=== PATIENT | female | born 1960 | race Caucasian/White ===

== ENCOUNTER 2017-11-15 15:38 | Emergency (ER) | payer BC ==
[2017-11-15 16:28] LABS: #Lymphocytes 1.9 thou/uL (1.20-3.40); #Monocytes 0.5 thou/uL (0.11-0.59); #Neutrophils 7.1 thou/uL (1.40-6.50); %Basophils 0.4 % (0.0-1.0); %Eosinophils 0.5 % (0.0-10.0); %Lymphocytes 19.6 % (21.0-51.0); %Monocytes 4.9 % (0.0-10.0); %Neutrophils 74.6 % (42.0-75.0); Hemoglobin 15.2 g/dL (12.0-16.0); Mean Corpuscular HGB CONC 33.7 g/dL (32.0-36.0); Mean Corpuscular Hemoglobin 30.8 pg (27.0-31.0); Mean Corpuscular Volume 91.4 fl (81.0-99.0); Mean Platelet Volume 8.1 fL (7.4-10.4); Platelet Count 230 thou/uL (130-400); RBC Distribution Width 13.8 % (11.5-14.5); Red Blood Cell (RBC) Count 4.93 mill/uL (4.20-5.40); White Blood Cell (WBC) Count 9.6 thou/uL (4.8-10.8)
[2017-11-15] MEDS ORDERED: Ketorolac Tromethamine 30 MG/ML VIAL ONE (16:35)
[2017-11-15 16:48] LABS: ALT (SGPT) 24 U/L (8-55); AST (SGOT) 16 U/L (5-34); Albumin 3.9 g/dL (3.5-5.0); Alkaline Phosphatase 106 U/L (40-150); Anion Gap 18 mmol/L (10-20); BUN (Urea Nitrogen) 13 mg/dL (9.8-20.1); Bilirubin, Total 0.6 mg/dL (0.2-1.2); Calc. Creatinine Clearance 0 mL/min (70-130); Carbon Dioxide 23 mmol/L (22-29); Chloride 100 mmol/L (98-107); Estimated GFR-MDRD 66; Globulin 3.6 g/dL (2.4-3.5); Potassium 4.4 mmol/L (3.5-5.1); Protein, Total 7.5 g/dL (6.0-8.3); Sodium 137 mmol/L (136-145)
[2017-11-15 16:51] LABS: Glucose 626 mg/dL (70-105)
[2017-11-15 17:28] LABS: Bilirubin Negative (Negative); Blood, Urine Negative (Negative); Clarity CLEAR (Clear); Glucose, Urine (Dipstick) >=1000 mg/dL (Negative); Leukocyte Negative (Negative); Nitrite Negative (Negative); Protein, Urine (Dipstick) Negative (Neg-Trace); Specific Gravity, Urine 1.043 (1.002-1.036); Urobilinogen 0.2 mg/dL (0.2-1.0); pH, Urine 5.5 (5.0-9.0)
[2017-11-15 17:49] LABS: Base Excess-Venous 1.9 mmol/L (-30.0-30.0); Bicarbonate (HCO3v) 25.6 mmol/L (1.0-85.0); CO2 Tension (PvCO2) 36.9 mmHg (41.0-51.0); Calcium, Ionized 1.07 mmol/L (1.12-1.32); Hemoglobin - Calc 16.3 g/dL (12.0-18.0); O2 Tension (PvO2) 82.5 mmHg (35.0-45.0); Potassium 4.4 mmol/L (3.4-4.7); T. Carbon Dioxide 26.8 mmol/L (1.0-85.0); vO2 Saturation-calc 96.6 % (0.0-100.0)
[2017-11-15] MEDS ORDERED: Insulin Regular 300 UNITS/3 ML VIAL ONE (17:51)
[2017-11-15] MEDS ORDERED: Fentanyl 100 MCG/2 ML VIAL ONE (17:52)
[2017-11-15] MEDS ORDERED: Piperacillin/Tazobactam 3.375 GM in Sodium Chloride 0.9% 100 ML IVPB ONE (18:00)
--- NOTE | 2017-11-15 20:18 | RAD ---
RIGHT ANKLE TWO VIEWS 11/15/17 HISTORY: Right ankle pain. Right toe infection. FINDINGS/IMPRESSION: No acute fracture or dislocation or bony destructions are identified. A plantar calcaneal spur is pre sent. Bony density inferior to the lateral malleolus likely represents old injury. POS: [facility]
--- NOTE | 2017-11-15 20:20 | RAD ---
RIGHT FOOT TWO VIEWS 11/15/17 HISTORY: Right foot pain, toe infection. FINDINGS/IMPRESSION: No acute fracture or dislocation or bony destruction seen. A plantar calcaneal spur is present. If there is high clinical suspicion for osteomyelitis, further evaluation with MRI should be performmaile d. POS: [facility]
== END 2017-11-15 22:22 | disposition home or self-care (01) ==
LOC: ERS 15:38
DX: E11.621 Type 2 diabetes mellitus with foot ulcer (principal); L03.115 Cellulitis of right lower limb; E66.9 Obesity, unspecified; F32.9 Major depressive disorder, single episode, unspecified; Z79.4 Long term (current) use of insulin
CPT/HCPCS: 36415; 36416; 80053; 81003; 82010; 82330; 82803; 83735; 83930; 85025; 86140; 87040; 87070; 87077; 87186; 87205; 96361; 96365; 96367; 96375; J1815; J1885; J2543; J3010; J3370; J7050

== ENCOUNTER 2017-11-30 09:29 | Outpatient (CLI) | payer BC | END 2017-11-30 09:30 | disposition home or self-care (01) | LOC: BICRAD 09:29 | PROVIDERS: ATTEND Family Medicine | DX: M79.661 Pain in right lower leg (principal); M85.861 Other specified disorders of bone density and structure, right lower leg ==

== ENCOUNTER 2017-12-01 10:13 | Outpatient (CLI) | payer BC ==
--- NOTE | 2017-12-01 19:15 | HP ---
DATE OF SERVICE: 12/01/2017. HISTORY OF PRESENT ILLNESS: Ms. Marielle Norman is a very pleasant 57-year-old who presents to the [facility] for evaluation of an ulceration of the dorsum of the right third toe. The patient states that on Wednesday of the first weekend of 11/2017, she developed erythema of her right third toe. She s tates that 2 days later, she developed 2 blisters of her right third toe. She states that she popped the blisters on her own resulting in the drainage of serosanguineous fluid. The patient states that she popped the blisters on the same day that the blisters were first noted. The patient states that on the following day, she saw Dr. Nergo and at this time was administered IM antibiotics and alisia elizabeth on a course of p.o. antibiotics. She states that when her toe did not improve in its appearance, she was seen in the Emergency Department and at this time, administered two different antibiotics in travenously. The patient states she was also prescribed a course of p.o. antibiotics. After a fall, the patient states she was seen yesterday by Dr. Negro and at this time administered antibiotics IM, also at this time, 2 courses of p.o. antibiotics were refilled. Also at this time, the patient was referred to the [facility] for further evaluation and treatment. PAST MEDICAL HISTORY: 1. Diabetes mellitus. 2. Hypertension. PAST SURGICAL HISTORY: 1. Cholecystectomy. 2. Ventral hernia repair. 3. Right needle localization breast biopsy. MEDICATIONS: 1. Aspirin. 2. Effexor. 3. Metformin. 4. Lipitor. 5. Vitamin D3. 6. Humulin. 7. Xanax. 8. Tramadol. 9. Levaquin. 10. Doxycycline. ALLERGIES: LOSARTAN, BACTRIM. SOCIAL HISTORY: Negative for tobacco or ETOH use. FAMILY HISTORY: Significant for diabetes mellitus. The patient states that her father and maternal grandmother were both diagnosed with diabetes mellitus. Family history is also significant for coron bobbi artery disease. The patient states that her father was diagnosed with coronary artery disease. PHYSICAL EXAMINATION: VITAL SIGNS: Temperature 98.0, pulse 115, respirations 19, blood pressure 133/71. Accu-Chek 359. GENERAL: A 57-year-old female lying on table in examination room, in no acute distress. HEENT: Normocephalic, atraumatic. NECK: No nuchal rigidity. CHEST: Clear to auscultation. CARDIAC: Regular rate and rhythm. ABDOMEN: Soft. EXTREMITIES: An ulceration of the dorsum of the right third toe is present which measures approximat akua 2.8 x 1.8 cm. Granulation tissue is visible within the wound margins. Necrotic and nonviable ti ssue present within the wound margins was debrided with an excisional partial-thickness debridement o f necrotic and desiccated tissue at the periphery of the wound were excised with the use of scissors. No purulent drainage is associated with the wound. No purulent drainage is associated with the wou nd. No cellulitis of the right third toe is appreciated. No maceration of the skin of the periwound is noted. A pedal pulse is palpable on the right. No significant edema of the right foot is presen t on exam today. NEUROLOGIC: Grossly nonfocal. ASSESSMENT AND PLAN: 1. Ulceration of dorsum of the right third toe. Dressing changes of Silverlon will be initiated tomavis todd. These dressing changes are to be performed on a daily basis after cleansing and irrigation. The patient is to continue p.o. antibiotics as previously prescribed, specifically Levaquin and doxycycl ine. The wound appears to be healing without complications or any signs of infection and Ms. Roshan gallo will be discharged from clinic today with followup on a p.r.n. basis. 2. Diabetes mellitus. The patient's Accu-Chek in clinic today is 359. The patient has been told th at for optimal wound healing, her blood glucoses should remain below 150. 3. Hypertension.
[2017-12-03] MEDS ORDERED: Lidocaine 2% Jelly 5 ML TUBE ONE (15:54)
[2017-12-03] MEDS ORDERED: Sodium Chloride 0.9% 15 ML NEB ONE (15:54)
== END 2017-12-01 10:14 | disposition home or self-care (01) ==
LOC: WCC 10:13
PROVIDERS: ATTEND Family Medicine
DX: E11.621 Type 2 diabetes mellitus with foot ulcer (principal); L97.519 Non-pressure chronic ulcer of other part of right foot with unspecified severity; I10 Essential (primary) hypertension
CPT/HCPCS: 11042; 99203; G0463

== ENCOUNTER 2017-12-02 08:37 | Outpatient (CLI) | payer BC | END 2017-12-02 08:38 | disposition home or self-care (01) | LOC: BICRAD 08:37 | PROVIDERS: ATTEND Family Medicine | DX: M25.571 Pain in right ankle and joints of right foot (principal); M19.071 Primary osteoarthritis, right ankle and foot ==

== ENCOUNTER 2018-01-15 16:03 | Inpatient (IN) | payer BC ==
[2018-01-15] MEDS ORDERED: Morphine 4 MG/ML VIAL ONE (17:11)
--- NOTE | 2018-01-15 17:28 | RAD ---
PORTABLE CHEST ONE VIEW 01/15/18 at 5:05 p.m. HISTORY: Fever. Chills. FINDINGS: Comparison is made with exam of 06/02/16. There is elevation of the right hemidiaphragm. The heart size is normal. No confluent areas of consol idation, pneumothorax, efrain pulmonary edema, or pleural effusions are seen. IMPRESSION: No radiographic evidence of acute cardiopulmonary process. POS: [facility]
[2018-01-15 18:17] LABS: Hemoglobin 14.1 g/dL (12.0-16.0); Mean Corpuscular HGB CONC 33.6 g/dL (32.0-36.0); Mean Corpuscular Hemoglobin 30.4 pg (27.0-31.0); Mean Corpuscular Volume 90.3 fl (81.0-99.0); Mean Platelet Volume 7.4 fL (7.4-10.4); Platelet Count 175 thou/uL (130-400); RBC Distribution Width 13.8 % (11.5-14.5); Red Blood Cell (RBC) Count 4.66 mill/uL (4.20-5.40); White Blood Cell (WBC) Count 11.5 thou/uL (4.8-10.8)
[2018-01-15 18:31] LABS: ALT (SGPT) 40 U/L (8-55); AST (SGOT) 56 U/L (5-34); Albumin 3.4 g/dL (3.5-5.0); Alkaline Phosphatase 91 U/L (40-150); Anion Gap 16 mmol/L (10-20); BUN (Urea Nitrogen) 17 mg/dL (9.8-20.1); Band 38 % (5-11); Bilirubin, Total 0.9 mg/dL (0.2-1.2); Calc. Creatinine Clearance 0 mL/min (70-130); Calcium 9.5 mg/dL (7.8-10.44); Carbon Dioxide 23 mmol/L (22-29); Chloride 95 mmol/L (98-107); Estimated GFR-MDRD 64; Globulin 3.6 g/dL (2.4-3.5); Glucose 353 mg/dL (70-105); Lymphocytes 5 % (21-51); MDiff Complete? YES; Monocytes 3 % (0-10); Neutrophil 53 % (42-75); PLT Morphology Comment Appears Adequate; RBC Morphology Normal; Reactive Lymphocytes 1 % (0-10); Sodium 130 mmol/L (136-145)
[2018-01-15] MEDS ORDERED: VANCOMYCIN IVPB PRN (19:29)
[2018-01-15] MEDS ORDERED: Dextrose 50% Abboject 50 ML SYRINGE SLOW IVP PRN (19:30)
[2018-01-15] MEDS ORDERED: Dextrose 5% in Water 1,000 ML IV PRN (19:30)
[2018-01-15] MEDS ORDERED: INSULIN GLARGINE HUM REC ANLOG 50 UNIT SC SCH (21:00)
[2018-01-15] MEDS ORDERED: Citalopram 20 MG TAB PO SCH (21:00)
[2018-01-15 21:12] VITALS: BMI 42.3
[2018-01-15] MEDS ORDERED: Insulin Detemir 100 UNITS/ML 50 UNITS in Pre-Filled Syringe 1 EACH SC SCH (21:15)
[2018-01-15] MEDS: HumaLOG 300 UNITS/3 ML VIAL SC PRN (22:17)
[2018-01-15] MEDS: Sodium Chloride 0.9% 1,000 ML IV SCH (22:18)
--- NOTE | 2018-01-15 22:18 | HP ---
PRIMARY CARE PHYSICIAN: Dr. Carlos Negro. CHIEF COMPLAINT: Worsening left leg pain. HISTORY OF PRESENT ILLNESS: Patient is a very pleasant 57-year-old female with past medical history of diabetes and hypertension who presented to the hospital for worsening left leg pain. The patient stated that she had a fall on Wednesday. She said she has lost her balance and fell on the floor, did n ot hit her head. The patient stated that she lives alone and had no help and stayed on the floor for about 24 hours until she got herself up. The patient stated that she does not remember hitting her left leg. The patient noticed that this morning when she woke up, she started having significant red ness and edema to her left leg. The patient denies any fevers or chills. The patient stated that camilo gr did have cellulitis of her right leg a few months back. PAST MEDICAL HISTORY: Diabetes type 2, hypertension. PAST SURGICAL HISTORY: Cholecystectomy, ventral hernia repair and right needle localized breast biop sy. MEDICATIONS: Per charting, aspirin 81 mg, vitamin D3 2000 units daily, citalopram 40 at bedtime, gli pizide 10 mg daily, insulin 50 units b.i.d., metformin 1000 mg b.i.d., and pravastatin 80 mg at bedti me. ALLERGIES: She is allergic to LOSARTAN and BACTRIM. SOCIAL HISTORY: She denies any tobacco, alcohol or drug use. FAMILY HISTORY: Significant for diabetes, both her mother and father had diabetes. Maternal grandmo ther also had diabetes. Father also had coronary artery disease. REVIEW OF SYSTEMS: The following complete review of systems was negative, unless otherwise mentioned in the HPI or below: Constitutional: Weight loss or gain, ability to conduct usual activities. Skin: Rash, itching. Eyes: Double vision, pain. ENT/Mouth: Nose bleeding, neck stiffness, pain, tenderness. Cardiovascular: Palpitations, dyspnea on exertion, orthopnea. Respiratory: Shortness of breath, wheezing, cough, hemoptysis, fever or night sweats. Gastrointestinal: Poor appetite, abdominal pain, heartburn, nausea, vomiting, constipation, or diarr hea. Genitourinary: Urgency, frequency, dysuria, nocturia. Musculoskeletal: Pain, swelling. Neurologic/Psychiatric: Anxiety, depression. Allergy/Immunologic: Skin rash, bleeding tendency. PHYSICAL EXAMINATION: VITAL SIGNS: Temperature of 98.4, blood pressure 114/69, pulse of 115 and she is 91% on room air. GENERAL: She is awake, alert, oriented x3, appears very dehydrated. HEENT: Mouth appears very dehydrated. CARDIOVASCULAR: S1, S2 present. No murmurs, rubs or gallops. Only tachycardia. RESPIRATORY: Lungs are clear to auscultation. No rhonchi, wheezes noted. ABDOMEN: Obese. Bowel sounds are present x2. No pain upon palpation. EXTREMITIES: The patient has significant edema to her left leg, +1. Patient also has significant er ythema all the way on her left leg starting from her foot all the way back going around her groin are a. She does have some little small blood blisters to the back portion of her left leg. Pedal pulses are present in foot. The patient's left leg is warm to touch. LABORATORY DATA: The patient's white count is 11.5; however, has bands of 38. Hemoglobin 14.1, patricia tocrit 42.1. Sodium of 130, potassium of 4.0, anion gap of 16, BUN of 17, creatinine of 0.9, sugar i s 353. ASSESSMENT AND PLAN: The patient is a very pleasant 57-year-old female who presented to the hospital with worsening left leg pain. 1. Left leg cellulitis, patient is a diabetic. We will start the patient on vancomycin and Zosyn fo r now. Blood cultures are not drawn and sent. 2. Mild leukocytosis with bandemia, most likely secondary to cellulitis. We will continue IV antibi otics. 3. Diabetes type 2. We will put the patient on sliding scale insulin and her home dose of insulin o f Lantus long-acting. 4. Fall. The patient stated that she lives alone and she fell. We will get physical therapy to lidia luate her. We will also check a CK to make sure the patient does not have any rhabdomyolysis. 5. Tachycardic. The patient appears very dehydrated. She states that she has not eaten for the pas t 2 days. We will start the patient on some gentle hydration.
[2018-01-15] MEDS: Docusate 100 MG CAP PO SCH (22:19)
[2018-01-15] MEDS: Pravastatin Sodium 40 MG TAB PO SCH (22:19)
[2018-01-15] MEDS: Heparin 5,000 UNITS/ML VIAL SC SCH (22:20)
[2018-01-15] MEDS: Acetaminophen 325 MG TAB PO PRN (23:57)
[2018-01-15] MEDS: Piperacillin/Tazobactam 3.375 GM in Sodium Chloride 0.9% 100 ML IVPB SCH (23:58)
[2018-01-16] MEDS: Piperacillin/Tazobactam 3.375 GM in Sodium Chloride 0.9% 100 ML IVPB SCH ×3 (05:11→17:50)
[2018-01-16] MEDS: Vancomycin HCl 1.5 GM in Sodium Chloride 0.9% 250 ML 300 ML IVPB SCH ×2 (05:12→19:11)
[2018-01-16 05:13] LABS: ALT (SGPT) 31 U/L (8-55); AST (SGOT) 39 U/L (5-34); Albumin 2.8 g/dL (3.5-5.0); Alkaline Phosphatase 81 U/L (40-150); Anion Gap 11 mmol/L (10-20); BUN (Urea Nitrogen) 17 mg/dL (9.8-20.1); Bilirubin, Total 0.8 mg/dL (0.2-1.2); Calc. Creatinine Clearance 172 mL/min (70-130); Carbon Dioxide 26 mmol/L (22-29); Chloride 98 mmol/L (98-107); Estimated GFR-MDRD 90; Globulin 3.1 g/dL (2.4-3.5); Glucose 191 mg/dL (70-105); Potassium 3.4 mmol/L (3.5-5.1); Protein, Total 5.9 g/dL (6.0-8.3); Sodium 132 mmol/L (136-145)
[2018-01-16 05:37] LABS: Band 12 % (5-11); Hemoglobin 12.8 g/dL (12.0-16.0); Lymphocytes 15 % (21-51); MDiff Complete? YES; Mean Corpuscular HGB CONC 33.5 g/dL (32.0-36.0); Mean Corpuscular Hemoglobin 30.1 pg (27.0-31.0); Mean Corpuscular Volume 89.9 fl (81.0-99.0); Mean Platelet Volume 7.8 fL (7.4-10.4); Monocytes 12 % (0-10); Neutrophil 59 % (42-75); PLT Morphology Comment Appears Adequate; Platelet Count 139 thou/uL (130-400); RBC Distribution Width 13.7 % (11.5-14.5); RBC Morphology Normal; Reactive Lymphocytes 2 % (0-10); Red Blood Cell (RBC) Count 4.26 mill/uL (4.20-5.40); White Blood Cell (WBC) Count 9.6 thou/uL (4.8-10.8)
[2018-01-16] MEDS: Docusate 100 MG CAP PO SCH ×2 (08:18→21:42)
[2018-01-16] MEDS: HYDROcodone/Acetaminophen 5/325 mg Tablet PO PRN ×2 (08:18→17:35)
[2018-01-16] MEDS: Heparin 5,000 UNITS/ML VIAL SC SCH ×3 (08:19→21:43)
[2018-01-16] MEDS: Sodium Chloride 0.9% 1,000 ML IV SCH ×2 (08:21→21:44)
[2018-01-16] MEDS: Insulin Detemir 100 UNITS/ML 50 UNITS in Pre-Filled Syringe 1 EACH SC SCH ×2 (08:21→21:43)
--- NOTE | 2018-01-16 09:27 | RAD ---
2 VIEWS EACH HIP: Date: 01/16/18 PROVIDED CLINICAL HISTORY: Bilateral hip pain. FINDINGS: Evaluation is limited by patient body habitus. There is no evidence for displaced fracture. Hip joint spaces appear preserved. Vascular calcifications are seen. Alignment appears anatomic. IMPRESSION: Limited study without evidence for an acute osseous abnormality. POS: [facility]
--- NOTE | 2018-01-16 11:41 | PDOC.PN ---
- Subjective Encounter Start Date: 01/16/18 Encounter Start Time: 10:10 states she feels the same spiked fever around midnight - Objective Vital Signs & Weight: Vital Signs (12 hours) Temp Pulse Resp BP Pulse Ox 01/16/18 07:21 98.3 F 107 H 18 101/66 92 L 01/16/18 05:45 98.2 F 103 H 20 101/66 95 01/16/18 00:30 101.4 F H 110 H 20 109/61 90 L I&O: 01/15/18 01/16/18 01/17/18 05:59 06:59 06:59 Intake Total Balance Result Diagrams: 01/16/18 04:09 01/16/18 04:09 Additional Labs: Accuchecks 01/16/18 01/15/18 05:46 20:55 POC Glucose 261 H 515 H Phys Exam - Physical Examination Constitutional: NAD HEENT: PERRLA, moist MMs Neck: no nodes, no JVD, supple Respiratory: no wheezing, no rales, no rhonchi, clear to auscultation bilateral Cardiovascular: no rub tachycardic Gastrointestinal: soft, non-tender, no distention Musculoskeletal: pulses present Deviation from normal: signfiicant erythema of the leg. tender to touch. warm to touch Dx/Plan (1) Left leg cellulitis Code(s): L03.116 - CELLULITIS OF LEFT LOWER LIMB Status: Acute (2) Diabetes type 2, controlled Code(s): E11.9 - TYPE 2 DIABETES MELLITUS WITHOUT COMPLICATIONS Status: Chronic (3) Sepsis affecting skin Code(s): A41.9 - SEPSIS, UNSPECIFIED ORGANISM Status: Acute - Plan cont current plan of care, plan discussed w/ family, continue antibiotics * .
[2018-01-16] MEDS: Acetaminophen 325 MG TAB PO PRN (12:36)
[2018-01-16] MEDS: HumaLOG 300 UNITS/3 ML VIAL SC PRN ×3 (13:25→21:43)
[2018-01-16] MEDS: Pravastatin Sodium 40 MG TAB PO SCH (21:41)
[2018-01-17] MEDS: Piperacillin/Tazobactam 3.375 GM in Sodium Chloride 0.9% 100 ML IVPB SCH ×5 (00:32→23:37)
[2018-01-17] MEDS: HYDROcodone/Acetaminophen 5/325 mg Tablet PO PRN ×5 (01:23→21:08)
[2018-01-17] MEDS: Vancomycin HCl 1.75 GM in Sodium Chloride 0.9% 500 ML IVPB SCH ×2 (06:16→17:54)
[2018-01-17] MEDS: Acetaminophen 325 MG TAB PO PRN ×2 (07:20→14:23)
[2018-01-17] MEDS: Heparin 5,000 UNITS/ML VIAL SC SCH ×3 (08:26→21:04)
[2018-01-17] MEDS: Docusate 100 MG CAP PO SCH ×2 (08:26→21:04)
[2018-01-17] MEDS: Insulin Detemir 100 UNITS/ML 50 UNITS in Pre-Filled Syringe 1 EACH SC SCH ×2 (08:27→21:04)
--- NOTE | 2018-01-17 11:01 | PDOC.PN ---
- Subjective Encounter Start Date: 01/17/18 Encounter Start Time: 09:00 states she is doing okay but doesnt think the cellulitis is improving. denies fever or chills - Objective Vital Signs & Weight: Vital Signs (12 hours) Temp Pulse Resp BP BP Pulse Ox 01/17/18 07:56 98.0 F 95 22 H 129/70 92 L 01/17/18 07:30 98.3 F 98 18 92 L 01/17/18 07:24 98.3 F 98 18 105/68 92 L 01/17/18 05:35 97.8 F 91 18 116/71 93 L 01/17/18 00:56 98.5 F 102 H 18 107/67 93 L Weight Admit Weight 261 lb 12.8 oz Weight 261 lb 12.8 oz I&O: 01/16/18 01/17/18 01/18/18 06:59 06:59 06:59 Intake Total Balance Result Diagrams: 01/16/18 04:09 01/16/18 04:09 Additional Labs: Accuchecks 01/17/18 01/16/18 01/16/18 05:36 21:09 16:33 POC Glucose 122 H 225 H 219 H 01/16/18 11:41 POC Glucose 218 H Phys Exam - Physical Examination Constitutional: NAD HEENT: PERRLA, moist MMs Neck: no nodes, no JVD, supple Respiratory: no wheezing, clear to auscultation bilateral Cardiovascular: RRR, no significant murmur Gastrointestinal: soft, non-tender, no distention Musculoskeletal: pulses present, edema present Neurological: non-focal, normal sensation, moves all 4 limbs Psychiatric: normal affect, A&O x 3 Deviation from normal: significant swelling.erythema. superficial fluid collection on left leg Dx/Plan (1) Left leg cellulitis Code(s): L03.116 - CELLULITIS OF LEFT LOWER LIMB Status: Acute (2) Diabetes type 2, controlled Code(s): E11.9 - TYPE 2 DIABETES MELLITUS WITHOUT COMPLICATIONS Status: Chronic (3) Sepsis affecting skin Code(s): A41.9 - SEPSIS, UNSPECIFIED ORGANISM Status: Acute - Plan cont current plan of care, plan discussed w/ family, continue antibiotics * . continue with current Abx will consult General surgery-rule out compartment syndrome/necrotizing fascitis pain mgmt control
[2018-01-17] MEDS: HumaLOG 300 UNITS/3 ML VIAL SC PRN ×3 (11:48→21:05)
--- NOTE | 2018-01-17 15:40 | CON ---
DATE OF CONSULTATION: 01/17/2018 REQUESTING PHYSICIAN: Rich Jacob M.D. HISTORY OF PRESENT ILLNESS: This is a 57-year-old obese woman with history of diabetes mellitus and essential hypertension. The patient was admitted 2 days ago with complaint of worsening left lower leg pain. This proceeded a fall just 24 hours prior to this admission. The patient reported worsening swelling and painful left leg associated now with new onset redness in the posterior aspect of leg. The patient denies any fevers or chills. She was admitted and has been on treatment for left lower extremity cellulitis. At the time of my evaluation, patient is awake and alert. She is sitting up in a chair, having lunch. She denies any dyspnea, chest pain or syncope. She reports pain with dorsiflexion of her left leg. At baseline; however, she has no significant difficulties with minimum ambulation. PAST MEDICAL HISTORY: Significant for type 2 diabetes mellitus and essential hypertension. SURGICAL HISTORY: Pertinent for ventral incisional herniorrhaphy, cholecystectomy, and right needle localized by breast biopsy for benign lesion. SOCIAL HISTORY: She denies any cigarette smoking, ethanol or illicit drug abuse. I have reviewed prehospital medications. ALLERGIES: LOSARTAN and BACTRIM. CURRENT MEDICATIONS: Includes acetaminophen p.r.n. pain, aspirin 81 mg p.o. daily, heparin 5000 units subcutaneously t.i.d., Zosyn 3.375 grams IV q.6 hours , vancomycin 1.75 grams dosed by pharmacy. She also takes hydrocodone 5 mg 1 p.o. q.4 hours p.r.n. pain. REVIEW OF SYSTEMS: A 10 point review of systems essentially unremarkable except for as stated in past medical history and chief complaint. PHYSICAL EXAMINATION: GENERAL: This reveals a 57-year-old obese woman who is otherwise coherent and interactive and appears stated age. The patient is alert and oriented x3. She appears to be in no acute distress at the time of my evaluation. VITAL SIGNS: Includes blood pressure 109/73, pulse is 91 and regular, respiratory rate is 22, maximum temperature in the last 24 hours is 98.3 degrees Fahrenheit, oxygen saturation is 91% on room air. HEENT: Examination reveals normocephalic and atraumatic. Pupils are equal, round, and reactive to light and accommodation. Extraocular muscles are intact bilaterally. She has no scleral icterus present. NECK: She has no jugular venous distention noted. HEART: Reveals regular rate and rhythm. No murmurs or gallops auscultated. LUNGS: Clear to auscultation bilaterally. Her breathing is regular and unlabored. ABDOMEN: Soft, nontender, nondistended. Liver and spleen are nonpalpable below costal margins. EXTREMITIES: Reveals 2+ radial and right pedal pulses. She has marked swelling of the left leg from the ankle to just above the knee. There is a wide erythema of the posterior left leg with 4 x 5 cm bullous lesion in the most distal aspect of the posterior lower leg on the left. She has a positive Homans sign. There is no palpable crepitance although the edema is tense on palpation. No soft tissue flocculence or purulence is noted. NEUROLOGIC: [place] Coma Scale is 15. The patient has no focal neurologic deficits present. LABORATORY DATA: Laboratory findings on my review includes CBC on 01/15/2018 with 11,500 white blood cells, hemoglobin 14.1, hematocrit 42.1, platelet count 175,000 with 53% segmented neutrophils, 38 bands, 5 lymphocytes, and 3 monocytes. This improved on 01/16/2018 with 9,600 white blood cells, hemoglobin 12.8, hematocrit 38.3, platelet count is stable at 139,000. This is with differential count, 59% segmented neutrophils, 12 bands, 15 lymphocytes, and 12 monocytes. Chemistry from yesterday, sodium 132, potassium 3.4, chloride 98, bicarbonate 26, BUN 17, creatinine 0.67 and glucose 191. AST and ALT are noted at 39 and 31 respectively. IMPRESSION: Left leg cellulitis with high suspicion for a left leg deep venous thrombosis with thrombophlebitis. There is no clinical evidence of compartment syndrome or necrotizing soft tissue infection. RECOMMENDATIONS: Obtain duplex sonogram of the left lower extremity to rule out DVT. We will consider a lower leg CT scan to rule out necrotizing soft tissue infection if no DVT on ultrasound. There is no acute surgical indication for this patient at this time. We will continue to follow with serial examination and make further recommendations as necessary. AYLEEN
[2018-01-17] MEDS ORDERED: ISOVUE-370 76%-LOCM 1 ML ONE (15:43)
--- NOTE | 2018-01-17 16:13 | ULT ---
LEFT LOWER EXTREMITY VENOUS DUPLEX SONOGRAM: Date: 01/17/18 HISTORY: Left leg pain and edema. Enlarged lymph node. FINDINGS: The left common femoral vein and greater saphenous junction were evaluated along with the left femora l and deep femoral, popliteal, and posterior tibial veins. There is good color and spectral Doppler f low, compression, and augmentation. Lymph node at the left groin retains a normal fatty hilum and srini sures up to 2.0 cm. IMPRESSION: No sonographic evidence of deep venous thrombosis within the left lower extremity. POS: [facility]
--- NOTE | 2018-01-17 17:49 | CT ---
CT LEFT LOWER EXTREMITY: Technique: Multiple axial tomograms were obtained of the left lower extremity, just below the knee th rough the foot. History: Assess for necrotizing soft tissue infection. FINDINGS: Subcutaneous density is seen within the midcalf through the ankle consistent with subcutaneous inflam mation or cellulitis. The muscle bundles appear unremarkable with no intramuscular fluid or abscess c ollection. There is no subcutaneous fluid or abscess collection. There is a fluid dense collection seen external to the skin posteromedial aspect of the mid to distal calf which may represent a fluid or abscess collection involving the epidermis only. The dermis appe ars intact beneath this apparent collection. There is no osseous erosion or destruction of an osteomyelitis. IMPRESSION: 1. A fluid dense collection, dermal or epidermal in origin posteromedial aspect of the mid to distal calf region as described above. 2. Subcutaneous tissue show increased density from the midcalf through the ankle which suggests cellu litis. 3. No intramuscular fluid or abscess collection. There is no subdural fluid or abscess collection in the subcutaneous tissues. POS: [facility]
[2018-01-17] MEDS: Ibuprofen 200 MG TAB PO PRN (17:57)
[2018-01-17] MEDS: Pravastatin Sodium 40 MG TAB PO SCH (21:03)
[2018-01-18] MEDS: HYDROcodone/Acetaminophen 5/325 mg Tablet PO PRN ×4 (05:02→18:39)
[2018-01-18] MEDS: Piperacillin/Tazobactam 3.375 GM in Sodium Chloride 0.9% 100 ML IVPB SCH ×3 (05:04→16:58)
[2018-01-18] MEDS: Vancomycin HCl 1.75 GM in Sodium Chloride 0.9% 500 ML IVPB SCH ×2 (06:11→18:34)
[2018-01-18] MEDS: Docusate 100 MG CAP PO SCH ×2 (08:15→21:01)
[2018-01-18] MEDS: Heparin 5,000 UNITS/ML VIAL SC SCH ×3 (08:15→21:01)
[2018-01-18] MEDS: Ibuprofen 200 MG TAB PO PRN ×2 (08:19→21:05)
[2018-01-18 09:18] LABS: Anion Gap 16 mmol/L (10-20); BUN (Urea Nitrogen) 10 mg/dL (9.8-20.1); Calc. Creatinine Clearance 180 mL/min (70-130); Calcium 9.4 mg/dL (7.8-10.44); Carbon Dioxide 23 mmol/L (22-29); Chloride 102 mmol/L (98-107); Estimated GFR-MDRD Greater than 90; Glucose 102 mg/dL (70-105); Potassium 3.3 mmol/L (3.5-5.1); Sodium 138 mmol/L (136-145)
[2018-01-18] MEDS: Insulin Detemir 100 UNITS/ML 50 UNITS in Pre-Filled Syringe 1 EACH SC SCH ×2 (09:29→21:01)
--- NOTE | 2018-01-18 11:38 | PRG ---
DATE OF SERVICE: 01/18/2018 ATTENDING PHYSICIAN: Dr. Kunal Davies SUBJECTIVE: Ms. Norman is a 57-year-old woman with a history of diabetes mellitus and essential hy pertension who was admitted 3 days ago with left lower leg pain concerning for cellulitis versus deep venous thrombosis versus necrotizing fasciitis. Dr. Davies was consulted for possible surgical inter vention. He had a high suspicion for DVT, and therefore a duplex venous ultrasound was ordered. Thi s was negative for DVT. The patient also had CT lower extremities bilaterally in order to rule out n ecrotizing fasciitis. This was negative as well. At the time of exam this morning, patient presents with grossly erythematous left lower extremity. Compared with yesterday, the tissues are softer. S he has 2 large bullae on her distal left lower extremity, one is tense and the other is ruptured. Pa greta voices no new complaints on exam this morning. OBJECTIVE: VITAL SIGNS: BP 109/69, pulse 82, temperature 97.9, respirations 20, and O2 sat 96% on room air. GENERAL: Patient is an obese elderly female in no acute distress. HEENT: Normocephalic and atraumatic. RESPIRATORY: Breath sounds are clear to auscultation bilaterally. She has normal effort of breathin g. CARDIOVASCULAR: She has regular rate and rhythm. No murmurs, gallops or rubs. ABDOMEN: Soft, nontender, nondistended. EXTREMITIES: Patient has marked swelling of the left distal leg from just below the knee to the ankl e. The soft tissue is soft compared with yesterday, but still grossly erythematous. She has a large tense bullae just above the medial malleolus approximately 4 x 5 cm. She has another one just dista l to that which has ruptured. This one measures about 3 x 4 cm. NEUROLOGIC: Her GCS is 15 today. She has no focal deficits. LABORATORY DATA: Chemistry: Sodium 138, potassium 3.3, chloride 102, bicarbonate 23, BUN 10, creati nine 0.64, glucose 102, calcium 9.4. IMAGING: Left lower extremity venous duplex ultrasound from 01/17/2018, no sonographic evidence of d eep vein deep venous thrombosis within the left lower extremity. Lower extremity CT dated 01/17/2018; 1. Dense fluid collection, dermal or epidermal in origin posteromedial aspect of the mid to distal c evans region as described above. 2. Subcutaneous tissue showing increased density from the midcalf to the ankle which suggests cellul itis. 3. No intramuscular fluid or abscess collection. There is no subdural fluid or abscess collection i n the subcutaneous tissues. ASSESSMENT AND PLAN: 1. Left leg cellulitis with no clinical evidence of compartment syndrome or necrotizing soft tissue infection. 2. Diabetes mellitus, present on admission. 3. Hypertension, present on admission. PLAN: 1. Wound consult for bullae on left lower extremity. 2. There is no surgical indication for this patient at this time. Surgery will sign off now. Pleas e do not hesitate to contact for further questions or consults are needed. This patient was seen and examined on rounds with Dr. Kunal Davies who agrees with the assessment an d plan.
--- NOTE | 2018-01-18 16:12 | PRG ---
DATE OF SERVICE: 01/18/2018 SUBJECTIVE: Ms. Luciano is awake and alert today. She denies any new problems. She is tolerating diet and having normal bowel and urinary function. Ultrasound of the left lower extremity yesterday was negative for DVT. Left leg CT scan also revealed diffuse subcutaneous inflammation without any l oculated fluid collections. Findings were consistent with cellulitis. OBJECTIVE: VITAL SIGNS: Today includes blood pressure 109/69, pulse 82, respiratory rate is 20, maximum tempera ture in the last 24 hours is 97.9 degrees Fahrenheit, and oxygen saturation 96% on room air. HEART: Reveals regular rate and rhythm, no murmurs or gallops auscultated. LUNGS: Clear to auscultation bilaterally. Breathing is regular and unlabored. ABDOMEN: Soft, nontender, nondistended. EXTREMITIES: Reveals 2+ radial and pedal pulses bilaterally. Left leg edema is decreasing. Left ca lf is now soft to palpation. The bullous lesion in the most inferior posterior aspect of the left le g is not ruptured and draining serous fluid. There is no flocculence or purulence associated with th e patient's presentation. The redness is not extending beyond the khan from 2 days previously. IMPRESSION: Left leg cellulitis in a diabetic patient. No clinical evidence of necrotizing soft tis zahira infection. RECOMMENDATIONS: Continue current care including antibiotics and local wound care. There remains no acute surgical indication for this patient at this time. General Surgery will sign off and we will reevaluate the patient on demand. Above findings and recommendations discussed with the patient who indicates understanding of the information given. I have answered her questions.
[2018-01-18] MEDS: HumaLOG 300 UNITS/3 ML VIAL SC PRN (17:00)
[2018-01-18 18:02] LABS: Vancomycin, Trough 16.4 ug/mL
--- NOTE | 2018-01-18 18:51 | PDOC.PN ---
- Subjective Encounter Start Date: 01/18/18 Encounter Start Time: 18:50 Subjective: nsg notes rev, jed ovn, still has significant amount of swelling and -: weeping from LLE denies any pain in LLE - Objective Vital Signs & Weight: Vital Signs (12 hours) Temp Pulse Resp BP Pulse Ox 01/18/18 08:00 97.9 F 82 20 109/69 94 L Weight Admit Weight 261 lb 12.8 oz Weight 261 lb 12.8 oz I&O: 01/17/18 01/18/18 01/19/18 06:59 06:59 06:59 Intake Total 2960 Output Total 750 Balance 2210 Result Diagrams: 01/16/18 04:09 01/18/18 08:46 Additional Labs: Accuchecks 01/18/18 01/18/18 01/18/18 16:08 11:37 04:49 POC Glucose 253 H 156 H 93 01/17/18 19:16 POC Glucose 245 H Phys Exam - Physical Examination Constitutional: NAD HEENT: PERRLA, moist MMs, sclera anicteric Respiratory: no wheezing, no rales, no rhonchi, clear to auscultation bilateral Cardiovascular: RRR, no significant murmur, no rub dressing was just placed - was not removed for examination today 2+ edema LLE Psychiatric: normal affect, A&O x 3 Dx/Plan - Plan LLE cellulitis * empiric vancomycin, pip-corry * last vanc trough 16, appropriate * recheck CBC, BMP * apprec surg c/s - no surg @ t his point in time * continue to closely monitor * apprec would care c/s DM2 * glc 70 in AM * anticipate variable glc 2/2 new abx and active infxn * continue SSI, dec determine from 50mg sq bid to 25 mg sq BID and cont to monitor * home metformin and glipizide currently on hold diet: as shari activity: as shari dvt ppx Review of Systems - Medications/Allergies Allergies/Adverse Reactions: Allergies Allergy/AdvReac Type Severity Reaction Status Date / Time losartan Allergy FACIAL AND Verified 06/19/16 09:30 THROAT SWELLING sulfamethoxazole Allergy FACIAL AND Verified 06/19/16 09:30 [From Bactrim] THROAT SWELLING trimethoprim [From Bactrim] Allergy FACIAL AND Verified 06/19/16 09:30 THROAT SWELLING Medications: Current Medications Acetaminophen (Tylenol) 650 mg PO Q4H PRN PRN Reason: Headache/Fever or Pain Last Admin: 01/17/18 14:23 Dose: 650 mg Hydrocodone Bitart/Acetaminophen ([place] 5/325) 1 tab PO Q4H PRN PRN Reason: Moderate Pain (4-6) Last Admin: 01/18/18 18:39 Dose: 1 tab Aspirin (Aspirin Chewable) 81 mg PO DAILY [facility] Last Admin: 01/18/18 08:15 Dose: 81 mg Cholecalciferol (Vitamin D3) 2,000 units PO DAILY [facility] Last Admin: 01/18/18 08:15 Dose: 2,000 units Dextrose/Water (Dextrose 50%) 25 gm SLOW IVP PRN PRN PRN Reason: Hypoglycemia Docusate Sodium (Colace) 100 mg PO BID [facility] Last Admin: 01/18/18 08:15 Dose: 100 mg Glucagon (Glucagon) 1 mg IM PRN PRN PRN Reason: Hypoglycemia Heparin Sodium (Porcine) (Heparin) 5,000 units SC TID [facility] Last Admin: 01/18/18 14:08 Dose: 5,000 units Dextrose/Water (D5w) 1,000 mls @ 0 mls/hr IV .Q0M PRN; As Directed PRN Reason: Hypoglycemia Piperacillin Sod/Tazobactam (Sod 3.375 gm/ Sodium Chloride) 100 mls @ 200 mls/ hr IVPB Q6HR [facility] Last Admin: 01/18/18 16:58 Dose: 100 mls Insulin Detemir 50 units/ (Miscellaneous Medication) 0.5 mls @ 0 mls/hr SC BID [facility] Last Admin: 01/18/18 09:29 Dose: 0.5 mls Vancomycin HCl 1.75 gm/ Sodium (Chloride) 500 mls @ 250 mls/hr IVPB 0600,1800 [facility] Last Admin: 01/18/18 18:34 Dose: 500 mls Ibuprofen (Motrin) 200 mg PO Q6H PRN PRN Reason: Headache Last Admin: 01/18/18 08:19 Dose: 200 mg Insulin Human Lispro (Humalog) 0 units SC .AGGRESSIVE SLIDING PRN PRN Reason: Aggressive Correctional Scale Last Admin: 01/18/18 17:00 Dose: 6 unit Miscellaneous Medication (Pharmacy To Dose) 1 each IVPB PRN PRN PRN Reason: Pharmacy to dose Pravastatin Sodium (Pravachol) 80 mg PO HS [facility] Last Admin: 01/17/18 21:03 Dose: 80 mg Sodium Chloride (Flush - Normal Saline) 10 ml IVF Q12HR [facility] Last Admin: 01/18/18 08:16 Dose: 10 ml Sodium Chloride (Flush - Normal Saline) 10 ml IVF PRN PRN PRN Reason: Saline Flush
[2018-01-18] MEDS: Pravastatin Sodium 40 MG TAB PO SCH (21:01)
[2018-01-19] MEDS: Piperacillin/Tazobactam 3.375 GM in Sodium Chloride 0.9% 100 ML IVPB SCH ×4 (00:04→17:32)
[2018-01-19] MEDS: HYDROcodone/Acetaminophen 5/325 mg Tablet PO PRN ×4 (02:21→22:10)
[2018-01-19] MEDS: Vancomycin HCl 1.75 GM in Sodium Chloride 0.9% 500 ML IVPB SCH ×2 (06:05→19:27)
--- NOTE | 2018-01-19 07:40 | PDOC.PN ---
- Subjective Encounter Start Date: 01/19/18 Encounter Start Time: 12:00 Subjective: nsg notes rev, jed ovn, no new c/o, working with PT - Objective Vital Signs & Weight: Vital Signs (12 hours) Temp Pulse Resp BP Pulse Ox 01/19/18 05:08 97.9 F 90 17 139/85 95 01/18/18 20:45 98.7 F 84 18 140/72 95 Weight Admit Weight 261 lb 12.8 oz Weight 261 lb 12.8 oz I&O: 01/18/18 01/19/18 01/20/18 06:59 06:59 06:59 Intake Total 2960 1730 Output Total 750 Balance 2210 1730 Result Diagrams: 01/20/18 04:57 01/20/18 04:57 Additional Labs: Accuchecks 01/19/18 01/19/18 01/18/18 06:05 05:12 20:44 POC Glucose 92 60 L 172 H 01/18/18 01/18/18 16:08 11:37 POC Glucose 253 H 156 H Phys Exam - Physical Examination Constitutional: NAD HEENT: PERRLA, moist MMs, sclera anicteric LLE with erythema, bandanging, edema relative to RLE Neurological: moves all 4 limbs Psychiatric: normal affect, A&O x 3 Dx/Plan - Plan LLE cellulitis * empiric vancomycin, pip-corry * last vanc trough 16, appropriate * recheck CBC, BMP * apprec surg c/s - no surg @ t his point in time * continue to closely monitor * apprec would care c/s DM2 * glc 70 in AM * anticipate variable glc 2/2 new abx and active infxn * continue SSI, dec determine from 50mg sq bid to 25 mg sq BID and cont to monitor * home metformin and glipizide currently on hold sepsis, resolved diet: as shari activity: as shari dvt ppx Review of Systems - Medications/Allergies Allergies/Adverse Reactions: Allergies Allergy/AdvReac Type Severity Reaction Status Date / Time losartan Allergy FACIAL AND Verified 06/19/16 09:30 THROAT SWELLING sulfamethoxazole Allergy FACIAL AND Verified 06/19/16 09:30 [From Bactrim] THROAT SWELLING trimethoprim [From Bactrim] Allergy FACIAL AND Verified 06/19/16 09:30 THROAT SWELLING Medications: Current Medications Acetaminophen (Tylenol) 650 mg PO Q4H PRN PRN Reason: Headache/Fever or Pain Last Admin: 01/17/18 14:23 Dose: 650 mg Hydrocodone Bitart/Acetaminophen ([place] 5/325) 1 tab PO Q4H PRN PRN Reason: Moderate Pain (4-6) Last Admin: 01/19/18 02:21 Dose: 1 tab Aspirin (Aspirin Chewable) 81 mg PO DAILY [facility] Last Admin: 01/18/18 08:15 Dose: 81 mg Cholecalciferol (Vitamin D3) 2,000 units PO DAILY [facility] Last Admin: 01/18/18 08:15 Dose: 2,000 units Dextrose/Water (Dextrose 50%) 25 gm SLOW IVP PRN PRN PRN Reason: Hypoglycemia Docusate Sodium (Colace) 100 mg PO BID [facility] Last Admin: 01/18/18 21:01 Dose: 100 mg Glucagon (Glucagon) 1 mg IM PRN PRN PRN Reason: Hypoglycemia Heparin Sodium (Porcine) (Heparin) 5,000 units SC TID [facility] Last Admin: 01/18/18 21:01 Dose: 5,000 units Dextrose/Water (D5w) 1,000 mls @ 0 mls/hr IV .Q0M PRN; As Directed PRN Reason: Hypoglycemia Piperacillin Sod/Tazobactam (Sod 3.375 gm/ Sodium Chloride) 100 mls @ 200 mls/ hr IVPB Q6HR [facility] Last Admin: 01/19/18 05:07 Dose: 100 mls Vancomycin HCl 1.75 gm/ Sodium (Chloride) 500 mls @ 250 mls/hr IVPB 0600,1800 [facility] Last Admin: 01/19/18 06:05 Dose: 500 mls Insulin Detemir 25 units/ (Miscellaneous Medication) 0.25 mls @ 0 mls/hr SC BID [facility] Ibuprofen (Motrin) 200 mg PO Q6H PRN PRN Reason: Headache Last Admin: 01/18/18 21:05 Dose: 200 mg Insulin Human Lispro (Humalog) 0 units SC .AGGRESSIVE SLIDING PRN PRN Reason: Aggressive Correctional Scale Last Admin: 01/18/18 17:00 Dose: 6 unit Miscellaneous Medication (Pharmacy To Dose) 1 each IVPB PRN PRN PRN Reason: Pharmacy to dose Pravastatin Sodium (Pravachol) 80 mg PO HS [facility] Last Admin: 01/18/18 21:01 Dose: 80 mg Sodium Chloride (Flush - Normal Saline) 10 ml IVF Q12HR [facility] Last Admin: 01/18/18 21:03 Dose: Not Given Sodium Chloride (Flush - Normal Saline) 10 ml IVF PRN PRN PRN Reason: Saline Flush
[2018-01-19 09:20] LABS: #Basophils 0.1 thou/uL (0.0-0.2); #Eosinphils 0.1 thou/uL (0.0-0.7); #Lymphocytes 1.5 thou/uL (1.20-3.40); #Monocytes 0.4 thou/uL (0.11-0.59); #Neutrophils 7.9 thou/uL (1.40-6.50); %Basophils 0.6 % (0.0-1.0); %Eosinophils 1.3 % (0.0-10.0); %Lymphocytes 14.8 % (21.0-51.0); %Neutrophils 79.3 % (42.0-75.0); Hemoglobin 14.3 g/dL (12.0-16.0); Mean Corpuscular HGB CONC 32.7 g/dL (32.0-36.0); Mean Corpuscular Hemoglobin 29.7 pg (27.0-31.0); Mean Corpuscular Volume 90.8 fl (81.0-99.0); Mean Platelet Volume 7.5 fL (7.4-10.4); Platelet Count 265 thou/uL (130-400); RBC Distribution Width 13.9 % (11.5-14.5); Red Blood Cell (RBC) Count 4.83 mill/uL (4.20-5.40); White Blood Cell (WBC) Count 9.9 thou/uL (4.8-10.8)
[2018-01-19] MEDS: Docusate 100 MG CAP PO SCH ×2 (09:21→21:16)
[2018-01-19] MEDS: Heparin 5,000 UNITS/ML VIAL SC SCH ×3 (09:21→21:16)
[2018-01-19] MEDS: Insulin Detemir 100 UNITS/ML 25 UNITS in Pre-Filled Syringe 1 EACH SC SCH ×2 (09:22→21:16)
[2018-01-19 09:27] LABS: Anion Gap 17 mmol/L (10-20); BUN (Urea Nitrogen) 8 mg/dL (9.8-20.1); Calc. Creatinine Clearance 169 mL/min (70-130); Calcium 9.7 mg/dL (7.8-10.44); Carbon Dioxide 24 mmol/L (22-29); Chloride 104 mmol/L (98-107); Estimated GFR-MDRD 89; Glucose 64 mg/dL (70-105); Potassium 3.4 mmol/L (3.5-5.1); Sodium 142 mmol/L (136-145)
[2018-01-19] MEDS: Pravastatin Sodium 40 MG TAB PO SCH (21:16)
[2018-01-19] MEDS: HumaLOG 300 UNITS/3 ML VIAL SC PRN (21:17)
[2018-01-20] MEDS: Piperacillin/Tazobactam 3.375 GM in Sodium Chloride 0.9% 100 ML IVPB SCH ×4 (00:19→18:09)
[2018-01-20 05:25] LABS: #Basophils 0.1 thou/uL (0.0-0.2); #Eosinphils 0.2 thou/uL (0.0-0.7); #Lymphocytes 1.2 thou/uL (1.20-3.40); #Monocytes 0.5 thou/uL (0.11-0.59); #Neutrophils 6.1 thou/uL (1.40-6.50); %Basophils 0.7 % (0.0-1.0); %Eosinophils 1.9 % (0.0-10.0); %Lymphocytes 15.3 % (21.0-51.0); %Monocytes 6.6 % (0.0-10.0); %Neutrophils 75.5 % (42.0-75.0); Hemoglobin 12.8 g/dL (12.0-16.0); Mean Corpuscular HGB CONC 32.3 g/dL (32.0-36.0); Mean Corpuscular Hemoglobin 29.1 pg (27.0-31.0); Mean Corpuscular Volume 90.2 fl (81.0-99.0); Mean Platelet Volume 7.2 fL (7.4-10.4); Platelet Count 233 thou/uL (130-400); RBC Distribution Width 13.8 % (11.5-14.5); Red Blood Cell (RBC) Count 4.41 mill/uL (4.20-5.40)
[2018-01-20 05:30] LABS: Anion Gap 14 mmol/L (10-20); BUN (Urea Nitrogen) 7 mg/dL (9.8-20.1); Calc. Creatinine Clearance 180 mL/min (70-130); Calcium 8.9 mg/dL (7.8-10.44); Carbon Dioxide 25 mmol/L (22-29); Chloride 106 mmol/L (98-107); Estimated GFR-MDRD Greater than 90; Glucose 130 mg/dL (70-105); Potassium 3.2 mmol/L (3.5-5.1); Sodium 142 mmol/L (136-145)
[2018-01-20] MEDS: Vancomycin HCl 1.5 GM in Sodium Chloride 0.9% 250 ML 300 ML IVPB SCH ×2 (06:20→18:09)
[2018-01-20] MEDS: Docusate 100 MG CAP PO SCH ×2 (07:47→20:46)
[2018-01-20] MEDS: Heparin 5,000 UNITS/ML VIAL SC SCH ×3 (07:47→20:55)
[2018-01-20] MEDS: Insulin Detemir 100 UNITS/ML 25 UNITS in Pre-Filled Syringe 1 EACH SC SCH ×2 (08:38→20:51)
[2018-01-20] MEDS: HYDROcodone/Acetaminophen 5/325 mg Tablet PO PRN ×2 (10:40→20:47)
[2018-01-20] MEDS: HumaLOG 300 UNITS/3 ML VIAL SC PRN ×2 (16:50→21:25)
[2018-01-20] MEDS: Pravastatin Sodium 40 MG TAB PO SCH (20:47)
--- NOTE | 2018-01-20 23:46 | PDOC.PN ---
- Subjective Encounter Start Date: 01/20/18 Encounter Start Time: 18:00 Subjective: nsg notes rev, jed ovn, no new c/o, LLE still very tender -: and painful - Objective Vital Signs & Weight: Vital Signs (12 hours) Temp Pulse Resp BP Pulse Ox 01/20/18 20:00 98.5 F 82 16 133/72 95 Weight Admit Weight 261 lb 12.8 oz Weight 261 lb 12.8 oz I&O: 01/19/18 01/20/18 01/21/18 06:59 06:59 06:59 Intake Total 1730 977 Balance 1730 977 Result Diagrams: 01/21/18 04:17 01/21/18 04:17 Additional Labs: Accuchecks 01/20/18 01/20/18 01/20/18 20:00 16:46 11:39 POC Glucose 227 H 236 H 159 H Phys Exam - Physical Examination Constitutional: NAD HEENT: PERRLA, moist MMs, sclera anicteric Neck: no nodes Respiratory: no wheezing, no rales, no rhonchi, clear to auscultation bilateral Cardiovascular: RRR, no significant murmur, no rub Musculoskeletal: pulses present concern for progression of edge of erythema compared to yday Neurological: moves all 4 limbs Psychiatric: normal affect, A&O x 3 Dx/Plan - Plan LLE cellulitis * empiric vancomycin, pip-corry * concern for either poor penetration of abx causing poor clearance * add clindamycin * outline area of cellulitis in surgical marker and date to better visualize progression * last vanc trough 19, appropriate * recheck CBC, BMP * apprec surg c/s - no surg @ t his point in time * continue to closely monitor * apprec would care c/s DM2 * glc 70 in AM * anticipate variable glc 2/2 new abx and active infxn * continue SSI, dec determine from 50mg sq bid to 25 mg sq BID and cont to monitor * home metformin and glipizide currently on hold sepsis, resolved diet: as shari activity: as shari dvt ppx Review of Systems - Medications/Allergies Allergies/Adverse Reactions: Allergies Allergy/AdvReac Type Severity Reaction Status Date / Time losartan Allergy FACIAL AND Verified 06/19/16 09:30 THROAT SWELLING sulfamethoxazole Allergy FACIAL AND Verified 06/19/16 09:30 [From Bactrim] THROAT SWELLING trimethoprim [From Bactrim] Allergy FACIAL AND Verified 06/19/16 09:30 THROAT SWELLING Medications: Current Medications Acetaminophen (Tylenol) 650 mg PO Q4H PRN PRN Reason: Headache/Fever or Pain Last Admin: 01/17/18 14:23 Dose: 650 mg Hydrocodone Bitart/Acetaminophen ([place] 5/325) 1 tab PO Q4H PRN PRN Reason: Moderate Pain (4-6) Last Admin: 01/20/18 20:47 Dose: 1 tab Aspirin (Aspirin Chewable) 81 mg PO DAILY [facility] Last Admin: 01/20/18 07:47 Dose: 81 mg Cholecalciferol (Vitamin D3) 2,000 units PO DAILY [facility] Last Admin: 01/20/18 07:47 Dose: 2,000 units Clindamycin HCl (Cleocin) 300 mg PO Q8H [facility] Dextrose/Water (Dextrose 50%) 25 gm SLOW IVP PRN PRN PRN Reason: Hypoglycemia Docusate Sodium (Colace) 100 mg PO BID [facility] Last Admin: 01/20/18 20:46 Dose: Not Given Glucagon (Glucagon) 1 mg IM PRN PRN PRN Reason: Hypoglycemia Heparin Sodium (Porcine) (Heparin) 5,000 units SC TID [facility] Last Admin: 01/20/18 20:55 Dose: 5,000 units Dextrose/Water (D5w) 1,000 mls @ 0 mls/hr IV .Q0M PRN; As Directed PRN Reason: Hypoglycemia Piperacillin Sod/Tazobactam (Sod 3.375 gm/ Sodium Chloride) 100 mls @ 200 mls/ hr IVPB Q6HR [facility] Last Admin: 01/21/18 06:15 Dose: 100 mls Insulin Detemir 25 units/ (Miscellaneous Medication) 0.25 mls @ 0 mls/hr SC BID [facility] Last Admin: 01/20/18 20:51 Dose: 0.25 mls Vancomycin HCl 1.5 gm/ Sodium (Chloride) 300 mls @ 150 mls/hr IVPB 0600,1800 [facility] Last Admin: 01/21/18 06:40 Dose: 300 mls Ibuprofen (Motrin) 200 mg PO Q6H PRN PRN Reason: Headache Last Admin: 01/18/18 21:05 Dose: 200 mg Insulin Human Lispro (Humalog) 0 units SC .AGGRESSIVE SLIDING PRN PRN Reason: Aggressive Correctional Scale Last Admin: 01/20/18 16:50 Dose: 6 unit Insulin Human Lispro (Humalog) 0 units SC .BEDTIME SLIDING SC PRN; Protocol PRN Reason: BEDTIME SLIDING SCALE Last Admin: 01/20/18 21:25 Dose: 2 unit Miscellaneous Medication (Pharmacy To Dose) 1 each IVPB PRN PRN PRN Reason: Pharmacy to dose Pravastatin Sodium (Pravachol) 80 mg PO HS [facility] Last Admin: 01/20/18 20:47 Dose: 80 mg Sodium Chloride (Flush - Normal Saline) 10 ml IVF Q12HR [facility] Last Admin: 01/20/18 20:56 Dose: 10 ml Sodium Chloride (Flush - Normal Saline) 10 ml IVF PRN PRN PRN Reason: Saline Flush
[2018-01-21] MEDS: Piperacillin/Tazobactam 3.375 GM in Sodium Chloride 0.9% 100 ML IVPB SCH ×4 (00:08→17:34)
[2018-01-21 05:26] LABS: #Eosinphils 0.1 thou/uL (0.0-0.7); #Lymphocytes 1.3 thou/uL (1.20-3.40); #Monocytes 0.3 thou/uL (0.11-0.59); #Neutrophils 5.9 thou/uL (1.40-6.50); %Basophils 0.5 % (0.0-1.0); %Eosinophils 1.9 % (0.0-10.0); %Monocytes 4.2 % (0.0-10.0); %Neutrophils 76.3 % (42.0-75.0); Hemoglobin 12.9 g/dL (12.0-16.0); Mean Corpuscular HGB CONC 32.2 g/dL (32.0-36.0); Mean Corpuscular Hemoglobin 29.8 pg (27.0-31.0); Mean Corpuscular Volume 92.5 fl (81.0-99.0); Mean Platelet Volume 7.5 fL (7.4-10.4); Platelet Count 259 thou/uL (130-400); Red Blood Cell (RBC) Count 4.31 mill/uL (4.20-5.40); White Blood Cell (WBC) Count 7.7 thou/uL (4.8-10.8)
[2018-01-21 05:43] LABS: Anion Gap 14 mmol/L (10-20); BUN (Urea Nitrogen) 6 mg/dL (9.8-20.1); Calc. Creatinine Clearance 174 mL/min (70-130); Carbon Dioxide 26 mmol/L (22-29); Chloride 105 mmol/L (98-107); Estimated GFR-MDRD Greater than 90; Glucose 127 mg/dL (70-105); Potassium 3.3 mmol/L (3.5-5.1); Sodium 142 mmol/L (136-145)
[2018-01-21] MEDS: Vancomycin HCl 1.5 GM in Sodium Chloride 0.9% 250 ML 300 ML IVPB SCH ×2 (06:40→18:27)
[2018-01-21] MEDS: HYDROcodone/Acetaminophen 5/325 mg Tablet PO PRN ×3 (06:50→19:26)
[2018-01-21] MEDS ORDERED: Clindamycin 150 MG CAP PO SCH (07:00)
[2018-01-21] MEDS: Heparin 5,000 UNITS/ML VIAL SC SCH ×3 (08:40→20:51)
[2018-01-21] MEDS: Insulin Detemir 100 UNITS/ML 25 UNITS in Pre-Filled Syringe 1 EACH SC SCH ×2 (08:40→20:50)
[2018-01-21] MEDS: Docusate 100 MG CAP PO SCH ×2 (08:41→19:26)
--- NOTE | 2018-01-21 13:41 | PDOC.PN ---
- Subjective Encounter Start Date: 01/21/18 Encounter Start Time: 13:40 Patient seen at bedside. No overnight events, still having discomfort in her LLE. Afebrile - Objective MAR Reviewed: Yes Vital Signs & Weight: Vital Signs (12 hours) Temp Pulse Resp BP Pulse Ox 01/21/18 08:00 98.3 F 95 20 140/79 96 Weight Admit Weight 261 lb 12.8 oz Weight 261 lb 12.8 oz I&O: 01/20/18 01/21/18 01/22/18 06:59 06:59 06:59 Intake Total 977 Balance 977 Result Diagrams: 01/21/18 04:17 01/21/18 04:17 Additional Labs: Accuchecks 01/21/18 01/21/18 01/20/18 11:41 04:35 20:00 POC Glucose 153 H 135 H 227 H 01/20/18 01/19/18 16:46 20:53 POC Glucose 236 H 261 H Phys Exam - Physical Examination Constitutional: NAD HEENT: moist MMs Neck: no JVD Respiratory: clear to auscultation bilateral Cardiovascular: RRR Gastrointestinal: soft LLE swelling and edema, decreased ROM in LLE due to pain/discomfort Neurological: moves all 4 limbs Psychiatric: A&O x 3 Deviation from normal: erythema and discharge on LLE, multiple areas of blistering, n -: no progression past demarcated line Dx/Plan (1) Left leg cellulitis Code(s): L03.116 - CELLULITIS OF LEFT LOWER LIMB Status: Acute (2) Diabetes type 2, controlled Code(s): E11.9 - TYPE 2 DIABETES MELLITUS WITHOUT COMPLICATIONS Status: Chronic (3) Dyslipidemia Code(s): E78.5 - HYPERLIPIDEMIA, UNSPECIFIED Status: Chronic - Plan cont current plan of care, continue antibiotics, PT/OT, social professionals, out of bed/ambulate * Continue with IV Vancomycin and IV Pip-Tazo. Clindamycin PO added * Wound Care * Area demarcated * Replete K+ *
[2018-01-21] MEDS ORDERED: Potassium Chloride 20 MEQ TAB PO SCH (14:00)
[2018-01-21] MEDS: Clindamycin 150 MG CAP PO SCH ×2 (15:01→20:54)
[2018-01-21 17:28] LABS: Vancomycin, Trough 17.7 ug/mL
[2018-01-21] MEDS: HumaLOG 300 UNITS/3 ML VIAL SC PRN ×2 (17:47→20:55)
[2018-01-21] MEDS: Pravastatin Sodium 40 MG TAB PO SCH (20:49)
[2018-01-22] MEDS: Piperacillin/Tazobactam 3.375 GM in Sodium Chloride 0.9% 100 ML IVPB SCH ×4 (00:43→20:13)
[2018-01-22] MEDS: HYDROcodone/Acetaminophen 5/325 mg Tablet PO PRN ×4 (01:03→20:15)
[2018-01-22 04:57] LABS: #Eosinphils 0.1 thou/uL (0.0-0.7); #Lymphocytes 1.3 thou/uL (1.20-3.40); #Monocytes 0.5 thou/uL (0.11-0.59); #Neutrophils 6.8 thou/uL (1.40-6.50); %Basophils 0.2 % (0.0-1.0); %Eosinophils 1.6 % (0.0-10.0); %Lymphocytes 15.3 % (21.0-51.0); %Monocytes 5.6 % (0.0-10.0); %Neutrophils 77.3 % (42.0-75.0); Hemoglobin 12.8 g/dL (12.0-16.0); Mean Corpuscular HGB CONC 32.6 g/dL (32.0-36.0); Mean Corpuscular Hemoglobin 29.3 pg (27.0-31.0); Mean Platelet Volume 7.6 fL (7.4-10.4); Platelet Count 246 thou/uL (130-400); RBC Distribution Width 13.8 % (11.5-14.5); Red Blood Cell (RBC) Count 4.38 mill/uL (4.20-5.40); White Blood Cell (WBC) Count 8.8 thou/uL (4.8-10.8)
[2018-01-22 05:16] LABS: Anion Gap 14 mmol/L (10-20); BUN (Urea Nitrogen) 6 mg/dL (9.8-20.1); Calc. Creatinine Clearance 162 mL/min (70-130); Calcium 8.8 mg/dL (7.8-10.44); Carbon Dioxide 25 mmol/L (22-29); Chloride 104 mmol/L (98-107); Estimated GFR-MDRD 85; Glucose 174 mg/dL (70-105); Sodium 139 mmol/L (136-145)
[2018-01-22] MEDS: Clindamycin 150 MG CAP PO SCH ×3 (07:07→20:15)
[2018-01-22] MEDS: HumaLOG 300 UNITS/3 ML VIAL SC PRN ×3 (07:08→18:40)
[2018-01-22] MEDS ORDERED: Piperacillin/Tazobactam 3.375 GM in Sodium Chloride 0.9% 100 ML IVPB SCH (08:10)
[2018-01-22] MEDS: Docusate 100 MG CAP PO SCH ×2 (08:17→20:18)
[2018-01-22] MEDS: Heparin 5,000 UNITS/ML VIAL SC SCH ×3 (08:18→20:15)
[2018-01-22] MEDS: Insulin Detemir 100 UNITS/ML 25 UNITS in Pre-Filled Syringe 1 EACH SC SCH ×2 (08:20→20:13)
[2018-01-22] MEDS: Vancomycin HCl 1.5 GM in Sodium Chloride 0.9% 250 ML 300 ML IVPB SCH ×3 (09:40→20:13)
--- NOTE | 2018-01-22 10:29 | PDOC.PN ---
- Subjective Encounter Start Date: 01/22/18 Encounter Start Time: 12:50 Subjective: Patient with continued pain, especially on posterior aspect of leg and up -: onto distal thigh. Blisters on back ruptured and draining. No F/C/N/V - Objective MAR Reviewed: Yes Vital Signs & Weight: Vital Signs (12 hours) Temp Pulse Resp BP Pulse Ox 01/22/18 08:00 97.9 F 87 18 148/80 H 93 L Weight Admit Weight 261 lb 12.8 oz Weight 261 lb 12.8 oz I&O: 01/21/18 01/22/18 01/23/18 06:59 06:59 06:59 Intake Total 1070 Balance 1070 Result Diagrams: 01/22/18 03:51 01/22/18 03:51 Additional Labs: Accuchecks 01/22/18 01/21/18 01/21/18 05:18 19:36 16:20 POC Glucose 182 H 245 H 246 H 01/21/18 11:41 POC Glucose 153 H Phys Exam - Physical Examination Constitutional: NAD HEENT: moist MMs Respiratory: no wheezing, no rales, no rhonchi, clear to auscultation bilateral Cardiovascular: RRR, no significant murmur Gastrointestinal: soft, positive bowel sounds Neurological: non-focal, moves all 4 limbs Psychiatric: normal affect, A&O x 3 Deviation from normal: Cellulitis to LLE with mild improvement from yesterday on anterior leg -: Posterior leg blisters ruptured and draining serosangenous fluid Dx/Plan (1) Left leg cellulitis Code(s): L03.116 - CELLULITIS OF LEFT LOWER LIMB Status: Acute Comment: Day 5 of Zosyn, also on Vancomycin and Clindamycin (2) Diabetes type 2, controlled Code(s): E11.9 - TYPE 2 DIABETES MELLITUS WITHOUT COMPLICATIONS Status: Chronic (3) Dyslipidemia Code(s): E78.5 - HYPERLIPIDEMIA, UNSPECIFIED Status: Chronic (4) Obesity Code(s): E66.9 - OBESITY, UNSPECIFIED Status: Chronic - Plan cont current plan of care, continue antibiotics, PT/OT, out of bed/ambulate, DVT proph w/heparin Mild improvement, continue IV antibiotics. * . - Discharge Day Encounter end time: 13:10
[2018-01-22] MEDS: Pravastatin Sodium 40 MG TAB PO SCH (20:15)
[2018-01-23] MEDS: Piperacillin/Tazobactam 3.375 GM in Sodium Chloride 0.9% 100 ML IVPB SCH ×4 (00:53→20:20)
[2018-01-23] MEDS: Clindamycin 150 MG CAP PO SCH ×3 (05:16→20:21)
[2018-01-23 05:59] LABS: Anion Gap 13 mmol/L (10-20); BUN (Urea Nitrogen) 7 mg/dL (9.8-20.1); Calc. Creatinine Clearance 157 mL/min (70-130); Calcium 8.5 mg/dL (7.8-10.44); Carbon Dioxide 29 mmol/L (22-29); Chloride 103 mmol/L (98-107); Estimated GFR-MDRD 82; Glucose 207 mg/dL (70-105); Potassium 3.9 mmol/L (3.5-5.1); Sodium 141 mmol/L (136-145)
[2018-01-23 06:04] LABS: Band 2 % (5-11); Hemoglobin 11.5 g/dL (12.0-16.0); Lymphocytes 21 % (21-51); MDiff Complete? YES; Mean Corpuscular HGB CONC 33.1 g/dL (32.0-36.0); Mean Corpuscular Hemoglobin 29.6 pg (27.0-31.0); Mean Corpuscular Volume 89.4 fl (81.0-99.0); Mean Platelet Volume 6.8 fL (7.4-10.4); Monocytes 2 % (0-10); Neutrophil 75 % (42-75); Platelet Count 287 thou/uL (130-400); RBC Distribution Width 13.7 % (11.5-14.5); White Blood Cell (WBC) Count 8.8 thou/uL (4.8-10.8)
[2018-01-23] MEDS: HYDROcodone/Acetaminophen 5/325 mg Tablet PO PRN ×3 (06:14→21:38)
--- NOTE | 2018-01-23 09:06 | PDOC.PN ---
- Subjective Encounter Start Date: 01/23/18 Encounter Start Time: 09:04 Subjective: NO NEW COMPLAINTS OVERNIGHT - Objective MAR Reviewed: Yes Vital Signs & Weight: Vital Signs (12 hours) Temp Pulse Resp BP Pulse Ox 01/23/18 08:14 98.3 F 82 16 151/73 H 96 Weight Admit Weight 261 lb 12.8 oz Weight 261 lb 12.8 oz I&O: 01/22/18 01/23/18 01/24/18 06:59 06:59 06:59 Intake Total 1070 Balance 1070 Result Diagrams: 01/23/18 05:20 01/23/18 05:20 Additional Labs: Accuchecks 01/23/18 01/22/18 01/22/18 04:57 20:27 16:52 POC Glucose 211 H 378 H 236 H 01/22/18 11:34 POC Glucose 178 H Phys Exam - Physical Examination Constitutional: NAD HEENT: PERRLA, moist MMs, sclera anicteric Neck: supple, full ROM Respiratory: no wheezing, no rhonchi Cardiovascular: RRR, no significant murmur Gastrointestinal: soft, non-tender, positive bowel sounds Musculoskeletal: pulses present, edema present Neurological: non-focal, moves all 4 limbs Psychiatric: A&O x 3 Deviation from normal: ERYTHEMA AND WARMTH TO LEFT LEG FORM THIGH TO FOOT. Dx/Plan (1) Left leg cellulitis Code(s): L03.116 - CELLULITIS OF LEFT LOWER LIMB Status: Acute Comment: Day 5 of Zosyn, also on Vancomycin and Clindamycin (2) Sepsis affecting skin Code(s): A41.9 - SEPSIS, UNSPECIFIED ORGANISM Status: Acute (3) Depression Code(s): F32.9 - MAJOR DEPRESSIVE DISORDER, SINGLE EPISODE, UNSPECIFIED Status : Chronic (4) Diabetes type 2, controlled Code(s): E11.9 - TYPE 2 DIABETES MELLITUS WITHOUT COMPLICATIONS Status: Chronic (5) Dyslipidemia Code(s): E78.5 - HYPERLIPIDEMIA, UNSPECIFIED Status: Chronic (6) Obesity Code(s): E66.9 - OBESITY, UNSPECIFIED Status: Chronic - Plan cont current plan of care, continue antibiotics SLOW IMPROVEMENT, AFEBRILE, NO LEUKOCYTOSIS ...CONTINUE REGIMEN * .
[2018-01-23] MEDS: Heparin 5,000 UNITS/ML VIAL SC SCH ×3 (09:24→20:22)
[2018-01-23] MEDS: Docusate 100 MG CAP PO SCH ×2 (09:24→20:21)
[2018-01-23] MEDS: Insulin Detemir 100 UNITS/ML 25 UNITS in Pre-Filled Syringe 1 EACH SC SCH ×2 (09:30→20:21)
[2018-01-23] MEDS: Vancomycin HCl 1.5 GM in Sodium Chloride 0.9% 250 ML 300 ML IVPB SCH ×2 (10:10→21:35)
[2018-01-23] MEDS: HumaLOG 300 UNITS/3 ML VIAL SC PRN ×3 (13:40→20:23)
[2018-01-23] MEDS: Pravastatin Sodium 40 MG TAB PO SCH (20:21)
[2018-01-23 20:57] LABS: Vancomycin, Trough 14.8 ug/mL
[2018-01-24] MEDS: Piperacillin/Tazobactam 3.375 GM in Sodium Chloride 0.9% 100 ML IVPB SCH ×4 (01:29→20:32)
[2018-01-24] MEDS: HYDROcodone/Acetaminophen 5/325 mg Tablet PO PRN ×3 (03:21→16:36)
[2018-01-24 04:36] LABS: #Eosinphils 0.2 thou/uL (0.0-0.7); #Lymphocytes 1.3 thou/uL (1.20-3.40); #Monocytes 0.4 thou/uL (0.11-0.59); #Neutrophils 6.7 thou/uL (1.40-6.50); %Basophils 0.1 % (0.0-1.0); %Eosinophils 1.9 % (0.0-10.0); %Lymphocytes 15.2 % (21.0-51.0); %Monocytes 4.2 % (0.0-10.0); %Neutrophils 78.6 % (42.0-75.0); Hemoglobin 13.1 g/dL (12.0-16.0); Mean Corpuscular HGB CONC 30.9 g/dL (32.0-36.0); Mean Corpuscular Hemoglobin 27.9 pg (27.0-31.0); Mean Corpuscular Volume 90.2 fl (81.0-99.0); Mean Platelet Volume 6.9 fL (7.4-10.4); Platelet Count 280 thou/uL (130-400); RBC Distribution Width 13.8 % (11.5-14.5); Red Blood Cell (RBC) Count 4.69 mill/uL (4.20-5.40); White Blood Cell (WBC) Count 8.5 thou/uL (4.8-10.8)
[2018-01-24 04:58] LABS: Anion Gap 15 mmol/L (10-20); BUN (Urea Nitrogen) 7 mg/dL (9.8-20.1); Calc. Creatinine Clearance 160 mL/min (70-130); Carbon Dioxide 26 mmol/L (22-29); Chloride 102 mmol/L (98-107); Estimated GFR-MDRD 83; Glucose 174 mg/dL (70-105); Potassium 3.5 mmol/L (3.5-5.1); Sodium 139 mmol/L (136-145)
[2018-01-24] MEDS: Clindamycin 150 MG CAP PO SCH ×3 (05:29→20:33)
[2018-01-24] MEDS: Docusate 100 MG CAP PO SCH ×2 (07:55→20:33)
[2018-01-24] MEDS: Heparin 5,000 UNITS/ML VIAL SC SCH ×3 (07:57→20:32)
[2018-01-24] MEDS: Vancomycin HCl 1.5 GM in Sodium Chloride 0.9% 250 ML 300 ML IVPB SCH ×2 (08:39→22:00)
[2018-01-24] MEDS: Insulin Detemir 100 UNITS/ML 25 UNITS in Pre-Filled Syringe 1 EACH SC SCH ×2 (08:46→20:33)
[2018-01-24] MEDS: HumaLOG 300 UNITS/3 ML VIAL SC PRN ×2 (13:04→16:39)
--- NOTE | 2018-01-24 13:43 | PDOC.PN ---
- Subjective Encounter Start Date: 01/24/18 Encounter Start Time: 13:30 Subjective: f/u for LLE cellulitis on Clindamycin, Vancomycin and Zosyn. States feeling -: better overall. Redness less but persistent. No fever or chills. No SOB. -: Ambulates minimally from bed to chair. - Objective MAR Reviewed: Yes Vital Signs & Weight: Vital Signs (12 hours) Temp Pulse Resp BP Pulse Ox 01/24/18 11:34 98.2 F 81 18 165/71 H 93 L 01/24/18 08:00 98.2 F 88 16 164/81 H 95 Weight Admit Weight 261 lb 12.8 oz Weight 261 lb 12.8 oz I&O: 01/23/18 01/24/18 01/25/18 06:59 06:59 06:59 Intake Total 860 Balance 860 Result Diagrams: 01/24/18 03:51 01/24/18 03:51 Additional Labs: Accuchecks 01/24/18 01/24/18 01/23/18 11:02 05:32 19:27 POC Glucose 191 H 162 H 258 H 01/23/18 17:11 POC Glucose 249 H Microbiology 01/15/18 17:59 Venous blood - Left Arm Blood Culture - Final NO GROWTH IN 5 DAYS 01/15/18 17:24 Venous blood - Right Arm Blood Culture - Final NO GROWTH IN 5 DAYS Phys Exam - Physical Examination Constitutional: NAD HEENT: PERRLA, oral pharynx no lesions Neck: no JVD, supple Respiratory: no wheezing, clear to auscultation bilateral Cardiovascular: RRR Gastrointestinal: soft, non-tender, no distention, positive bowel sounds LLE with edema to lower thigh, erythema recedes below demarcation line + edema of LLE, RLE clear, no edema Musculoskeletal: pulses present Neurological: normal sensation, moves all 4 limbs Psychiatric: A&O x 3 Skin: normal turgor, cap refill <2 seconds Dx/Plan (1) Left leg cellulitis Code(s): L03.116 - CELLULITIS OF LEFT LOWER LIMB Status: Acute Comment: Day #9 on abx including Zosyn, Vancomycin and Clindamycin po, local WCT, elevate LLE , slow clinical improvement (2) Sepsis affecting skin Code(s): A41.9 - SEPSIS, UNSPECIFIED ORGANISM Status: Resolved Comment: Resolved after initial treatment for LLE cellulitis (3) Diabetes type 2, controlled Code(s): E11.9 - TYPE 2 DIABETES MELLITUS WITHOUT COMPLICATIONS Status: Chronic Comment: Continue Detemir 25u sc BID, restart Glipizide 10mg daily and Metformin 1000mg BID, check A1C in am (4) Obesity Code(s): E66.9 - OBESITY, UNSPECIFIED Status: Chronic Comment: Heart healthy , ADA diet - Plan continue antibiotics, PT/OT, social media campaign manager, out of bed/ambulate, DVT proph w/ heparin Stable overall -: Continue Zosyn, Clindamycin and Vancomycin -: Local WCT -: Restart Glipizide 10mg daily and Metformin 1000mg BID -: CM consult for SNF options * AM lab: A1C
[2018-01-24] MEDS: metFORMIN 500 MG TAB PO SCH (16:38)
[2018-01-24] MEDS ORDERED: Non-Formulary Item 1 EACH (Metformin Hcl [Metformin Hcl] 1,000 MG) PO SCH (17:00)
[2018-01-24] MEDS: Pravastatin Sodium 40 MG TAB PO SCH (20:33)
[2018-01-25] MEDS: HYDROcodone/Acetaminophen 5/325 mg Tablet PO PRN ×5 (00:52→18:13)
[2018-01-25] MEDS: Piperacillin/Tazobactam 3.375 GM in Sodium Chloride 0.9% 100 ML IVPB SCH ×4 (02:50→20:45)
[2018-01-25] MEDS: Clindamycin 150 MG CAP PO SCH ×3 (05:06→20:48)
[2018-01-25 05:42] LABS: Hemoglobin A1c 11.3 % (4.0-6.0)
[2018-01-25 08:19] LABS: Vancomycin, Trough 18.7 ug/mL
[2018-01-25] MEDS: metFORMIN 500 MG TAB PO SCH ×2 (08:33→17:10)
[2018-01-25] MEDS: Docusate 100 MG CAP PO SCH ×2 (08:35→20:47)
[2018-01-25] MEDS: Heparin 5,000 UNITS/ML VIAL SC SCH ×3 (08:35→20:47)
[2018-01-25] MEDS: Vancomycin HCl 1.5 GM in Sodium Chloride 0.9% 250 ML 300 ML IVPB SCH ×2 (09:34→20:48)
[2018-01-25] MEDS: Insulin Detemir 100 UNITS/ML 25 UNITS in Pre-Filled Syringe 1 EACH SC SCH ×2 (09:35→20:47)
--- NOTE | 2018-01-25 14:09 | PDOC.PN ---
- Subjective Encounter Start Date: 01/25/18 Encounter Start Time: 13:45 Subjective: f/u for LLE cellulitis on Clindamycin, Zosyn and Vancomycin with slow -: clinical improvement. Overall feels ok. Ambulated to chair from bed with -: assist. No fever or chills. - Objective MAR Reviewed: Yes Vital Signs & Weight: Vital Signs (12 hours) Temp Pulse Resp Pulse Ox 01/25/18 08:00 98.1 F 96 20 96 Weight Admit Weight 261 lb 12.8 oz Weight 261 lb 12.8 oz I&O: 01/24/18 01/25/18 01/26/18 06:59 06:59 06:59 Intake Total 860 1220 Balance 860 1220 Result Diagrams: 01/24/18 03:51 01/24/18 03:51 Additional Labs: Accuchecks 01/25/18 01/25/18 01/24/18 11:11 05:10 19:43 POC Glucose 173 H 148 H 206 H 01/24/18 16:07 POC Glucose 198 H Microbiology 01/15/18 17:59 Venous blood - Left Arm Blood Culture - Final NO GROWTH IN 5 DAYS 01/15/18 17:24 Venous blood - Right Arm Blood Culture - Final NO GROWTH IN 5 DAYS Laboratory Tests 01/25/18 01/25/18 04:59 04:59 Hemoglobin A1c 11.3 H Vancomycin Trough 18.7 Phys Exam - Physical Examination Constitutional: NAD HEENT: PERRLA, oral pharynx no lesions Neck: no JVD, supple Respiratory: no wheezing, clear to auscultation bilateral Cardiovascular: RRR Gastrointestinal: soft, non-tender, no distention, positive bowel sounds LLE with erythema receding form original demarcation markings, large scaling on tibia noted, N/V intact distally Musculoskeletal: pulses present Neurological: normal sensation, moves all 4 limbs Psychiatric: A&O x 3 Skin: normal turgor, cap refill <2 seconds Dx/Plan (1) Left leg cellulitis Code(s): L03.116 - CELLULITIS OF LEFT LOWER LIMB Status: Acute Comment: Day #10 on abx including Zosyn, Vancomycin and Clindamycin po, local WCT, elevate LLE, slow clinical improvement (2) Sepsis affecting skin Code(s): A41.9 - SEPSIS, UNSPECIFIED ORGANISM Status: Resolved Comment: Resolved after initial treatment for LLE cellulitis (3) Diabetes type 2, controlled Code(s): E11.9 - TYPE 2 DIABETES MELLITUS WITHOUT COMPLICATIONS Status: Chronic Comment: Continue Detemir 25u sc BID, restart Glipizide 10mg daily and Metformin 1000mg BID, A1C >11, poor overall control fpc (4) Obesity Code(s): E66.9 - OBESITY, UNSPECIFIED Status: Chronic Comment: Heart healthy , ADA diet - Plan continue antibiotics, PT/OT, manager social responsibility, out of bed/ambulate Stable overall -: Continue Vancomycin, Clindamycin and Zosyn -: Anticipate IV abx another 7-10 days -: OOB with PT for mobilization -: CM for Rehab options *
[2018-01-25] MEDS ORDERED: diphenhydrAMINE 25 MG CAP PO PRN (14:21)
[2018-01-25] MEDS: Pravastatin Sodium 40 MG TAB PO SCH (20:47)
[2018-01-25] MEDS: Ibuprofen 200 MG TAB PO PRN (23:50)
[2018-01-26] MEDS: Piperacillin/Tazobactam 3.375 GM in Sodium Chloride 0.9% 100 ML IVPB SCH ×4 (01:08→21:33)
[2018-01-26] MEDS: Clindamycin 150 MG CAP PO SCH ×3 (05:23→21:32)
[2018-01-26] MEDS: Vancomycin HCl 1.5 GM in Sodium Chloride 0.9% 250 ML 300 ML IVPB SCH ×2 (09:57→23:03)
[2018-01-26] MEDS: Ibuprofen 200 MG TAB PO PRN (09:58)
[2018-01-26] MEDS: metFORMIN 500 MG TAB PO SCH ×2 (09:59→18:04)
[2018-01-26] MEDS: Docusate 100 MG CAP PO SCH ×2 (10:02→21:32)
[2018-01-26] MEDS: Insulin Detemir 100 UNITS/ML 25 UNITS in Pre-Filled Syringe 1 EACH SC SCH ×3 (10:03→23:19)
[2018-01-26] MEDS: Heparin 5,000 UNITS/ML VIAL SC SCH ×3 (10:04→21:33)
[2018-01-26] MEDS ORDERED: HYDROcodone/Acetaminophen 5/325 mg Tablet PO SCH (11:00)
[2018-01-26] MEDS ORDERED: HYDROcodone/Acetaminophen 5/325 mg Tablet PO PRN (14:48)
[2018-01-26] MEDS: HYDROcodone/Acetaminophen 5/325 mg Tablet PO PRN ×2 (15:00→21:44)
--- NOTE | 2018-01-26 15:20 | PDOC.PN ---
- Subjective Encounter Start Date: 01/26/18 Encounter Start Time: 14:50 Subjective: f/u for LLE cellulitis with slow clinical improvement on current Zosyn, -: Vancomycin and Clindamycin. Overall feeling better with less swelling in -: LLE. No fever, chills or SOB. - Objective MAR Reviewed: Yes Vital Signs & Weight: Vital Signs (12 hours) Temp Pulse Resp BP Pulse Ox 01/26/18 08:00 98.6 F 90 18 94 L 01/26/18 07:38 98.6 F 90 18 168/90 H 92 L Weight Admit Weight 261 lb 12.8 oz Weight 261 lb 12.8 oz I&O: 01/25/18 01/26/18 01/27/18 06:59 06:59 06:59 Intake Total 1220 500 Balance 1220 500 Result Diagrams: 01/24/18 03:51 01/24/18 03:51 Additional Labs: Accuchecks 01/26/18 01/26/18 01/25/18 11:21 06:34 20:25 POC Glucose 150 H 118 H 217 H 01/25/18 16:37 POC Glucose 150 H Phys Exam - Physical Examination Constitutional: NAD HEENT: PERRLA, oral pharynx no lesions Neck: no JVD, supple Respiratory: no wheezing, clear to auscultation bilateral Cardiovascular: RRR Gastrointestinal: soft, non-tender, no distention, positive bowel sounds LLE edema decreased, erythema decreased, peripatellar edema minimal Musculoskeletal: pulses present Neurological: normal sensation, moves all 4 limbs Psychiatric: A&O x 3 Skin: normal turgor, cap refill <2 seconds Dx/Plan (1) Left leg cellulitis Code(s): L03.116 - CELLULITIS OF LEFT LOWER LIMB Status: Acute Comment: Day #11 on abx including Zosyn, Vancomycin and Clindamycin po, local WCT, elevate LLE, slow clinical improvement but improving in last 24-48h (2) Sepsis affecting skin Code(s): A41.9 - SEPSIS, UNSPECIFIED ORGANISM Status: Resolved Comment: Resolved after initial treatment for LLE cellulitis (3) Diabetes type 2, controlled Code(s): E11.9 - TYPE 2 DIABETES MELLITUS WITHOUT COMPLICATIONS Status: Chronic Comment: Continue Detemir 25u sc BID, restart Glipizide 10mg daily and Metformin 1000mg BID, A1C >11, poor overall control custodial (4) Obesity Code(s): E66.9 - OBESITY, UNSPECIFIED Status: Chronic Comment: Heart healthy , ADA diet - Plan continue antibiotics, PT/OT, social sciences department chair, out of bed/ambulate Stable overall -: Continue Clindamycin, Zosyn and Vancomycin -: Likely de-escalate abx in next 24h -: OOB/chair -: CM of rehab options * Likely d/c in 24-48h
[2018-01-26] MEDS: Pravastatin Sodium 40 MG TAB PO SCH (21:33)
[2018-01-27] MEDS: Piperacillin/Tazobactam 3.375 GM in Sodium Chloride 0.9% 100 ML IVPB SCH ×3 (02:47→14:39)
[2018-01-27] MEDS: HYDROcodone/Acetaminophen 5/325 mg Tablet PO PRN ×3 (02:52→18:17)
[2018-01-27] MEDS: Clindamycin 150 MG CAP PO SCH ×3 (06:38→21:17)
[2018-01-27] MEDS: metFORMIN 500 MG TAB PO SCH ×2 (08:29→17:14)
[2018-01-27] MEDS: Ibuprofen 200 MG TAB PO PRN (08:33)
[2018-01-27] MEDS: Insulin Detemir 100 UNITS/ML 25 UNITS in Pre-Filled Syringe 1 EACH SC SCH ×2 (08:34→21:20)
[2018-01-27] MEDS: Docusate 100 MG CAP PO SCH ×2 (09:11→21:23)
[2018-01-27] MEDS: Heparin 5,000 UNITS/ML VIAL SC SCH ×3 (09:12→21:18)
[2018-01-27] MEDS: Vancomycin HCl 1.5 GM in Sodium Chloride 0.9% 250 ML 300 ML IVPB SCH ×2 (09:15→21:20)
--- NOTE | 2018-01-27 17:52 | PDOC.PN ---
- Subjective Encounter Start Date: 01/27/18 Encounter Start Time: 17:30 Subjective: f/u LLE cellulitis on Vancomycin, Zosyn and Clindamycin. Overall improved -: but noticed red spots on abd, legs and arms that is itchy. No SOB, fever -: Ambulating longer distances in room. - Objective MAR Reviewed: Yes Vital Signs & Weight: Vital Signs (12 hours) Temp Pulse Resp BP Pulse Ox 01/27/18 16:30 98 F 98 16 146/78 H 94 L 01/27/18 08:00 97.9 F 90 16 Weight Admit Weight 261 lb 12.8 oz Weight 261 lb 12.8 oz I&O: 01/26/18 01/27/18 01/28/18 06:59 06:59 06:59 Intake Total 500 Balance 500 Result Diagrams: 01/24/18 03:51 01/24/18 03:51 Additional Labs: Accuchecks 01/27/18 01/27/18 01/27/18 16:09 11:19 05:07 POC Glucose 120 H 98 104 01/26/18 01/26/18 01/26/18 23:10 20:19 17:18 POC Glucose 95 136 H 131 H Phys Exam - Physical Examination Constitutional: NAD HEENT: PERRLA, oral pharynx no lesions Neck: no JVD, supple Respiratory: no wheezing, clear to auscultation bilateral Cardiovascular: RRR Gastrointestinal: soft, non-tender, no distention, positive bowel sounds LLE with edema and decreased erythema Musculoskeletal: pulses present Neurological: normal sensation, moves all 4 limbs Psychiatric: A&O x 3 Deviation from normal: maculopapular eruptions on upper and lower extremities and abd mild blanchable Skin: normal turgor, cap refill <2 seconds Dx/Plan (1) Left leg cellulitis Code(s): L03.116 - CELLULITIS OF LEFT LOWER LIMB Status: Acute Comment: Day #12 on abx including Zosyn, Vancomycin and Clindamycin po, local WCT, elevate LLE, slow clinical improvement but improving in last 24-48h (2) Sepsis affecting skin Code(s): A41.9 - SEPSIS, UNSPECIFIED ORGANISM Status: Resolved Comment: Resolved after initial treatment for LLE cellulitis (3) Diabetes type 2, controlled Code(s): E11.9 - TYPE 2 DIABETES MELLITUS WITHOUT COMPLICATIONS Status: Chronic Comment: Continue Detemir 25u sc BID, restart Glipizide 10mg daily and Metformin 1000mg BID, A1C >11, poor overall control custodial (4) Obesity Code(s): E66.9 - OBESITY, UNSPECIFIED Status: Chronic Comment: Heart healthy , ADA diet (5) Rash and nonspecific skin eruption Code(s): R21 - RASH AND OTHER NONSPECIFIC SKIN ERUPTION Status: Acute Comment: ? drug rxn to current abx, d/c Zosyn, start Prednisone 40mg daily, Benadryl 25mg q6h, monitor for progression or regression - Plan continue antibiotics, PT/OT, social science instructor, out of bed/ambulate Stable overall -: Start Prednisone 40mg daily -: D/C Zosyn -: Benadryl 25mg po q6h -: OOB/ambulate * CM for rehab options
[2018-01-27] MEDS ORDERED: predniSONE 20 MG TAB PO SCH (18:00)
[2018-01-27] MEDS: diphenhydrAMINE 25 MG CAP PO SCH (18:18)
[2018-01-27] MEDS: Pravastatin Sodium 40 MG TAB PO SCH (21:17)
[2018-01-28] MEDS: diphenhydrAMINE 25 MG CAP PO SCH ×4 (00:27→16:27)
[2018-01-28] MEDS: Clindamycin 150 MG CAP PO SCH (05:52)
[2018-01-28] MEDS: Ibuprofen 200 MG TAB PO PRN (05:53)
[2018-01-28] MEDS: HumaLOG 300 UNITS/3 ML VIAL SC PRN ×4 (05:59→21:00)
[2018-01-28] MEDS: Insulin Detemir 100 UNITS/ML 25 UNITS in Pre-Filled Syringe 1 EACH SC SCH (08:35)
[2018-01-28] MEDS: predniSONE 20 MG TAB PO SCH (08:35)
[2018-01-28] MEDS: Docusate 100 MG CAP PO SCH ×2 (08:36→20:56)
[2018-01-28] MEDS: metFORMIN 500 MG TAB PO SCH ×2 (08:36→16:27)
[2018-01-28] MEDS: HYDROcodone/Acetaminophen 5/325 mg Tablet PO PRN ×3 (08:37→20:57)
[2018-01-28] MEDS: Heparin 5,000 UNITS/ML VIAL SC SCH ×3 (08:45→20:57)
[2018-01-28 08:57] LABS: Vancomycin, Trough 16.8 ug/mL
[2018-01-28] MEDS: Vancomycin HCl 1.5 GM in Sodium Chloride 0.9% 250 ML 300 ML IVPB SCH (10:22)
--- NOTE | 2018-01-28 11:37 | PDOC.PN ---
- Subjective Encounter Start Date: 01/28/18 Encounter Start Time: 11:25 Subjective: f/u for LLE cellulitis/ulceration on Vancomycin, Clindamycin with slow -: improvement. States feels better and able to bear weight on LLE better. -: Hospital day #13. - Objective MAR Reviewed: Yes Vital Signs & Weight: Vital Signs (12 hours) Temp Pulse Resp BP Pulse Ox 01/28/18 08:17 98.7 F 90 16 136/77 93 L 01/28/18 08:00 98.7 F 90 16 Weight Admit Weight 261 lb 12.8 oz Weight 261 lb 12.8 oz Result Diagrams: 01/24/18 03:51 01/24/18 03:51 Additional Labs: Accuchecks 01/28/18 01/27/18 01/27/18 04:55 20:21 16:09 POC Glucose 202 H 139 H 120 H 01/27/18 11:19 POC Glucose 98 Microbiology 01/15/18 17:59 Venous blood - Left Arm Blood Culture - Final NO GROWTH IN 5 DAYS 01/15/18 17:24 Venous blood - Right Arm Blood Culture - Final NO GROWTH IN 5 DAYS Laboratory Tests 18 01/25/18 01/28/18 04:59 04:59 08:17 Hemoglobin A1c 11.3 H Vancomycin Trough 18.7 16.8 Phys Exam - Physical Examination Constitutional: NAD HEENT: PERRLA, oral pharynx no lesions Neck: no JVD, supple Respiratory: no wheezing, clear to auscultation bilateral Cardiovascular: RRR Gastrointestinal: soft, non-tender, no distention, positive bowel sounds LLE with edema, large open ulceration, denuded area circumferentially, skin sloughing, purulence noted, no odor Musculoskeletal: pulses present Neurological: normal sensation, moves all 4 limbs Psychiatric: A&O x 3 Skin: normal turgor, cap refill <2 seconds Dx/Plan (1) Left leg cellulitis Code(s): L03.116 - CELLULITIS OF LEFT LOWER LIMB Status: Acute Comment: Day #13 on abx including Vancomycin and Clindamycin po, local WCT, elevate LLE, slow clinical improvement, Zosyn d/c'd after concern for drug rxn, consult Infectious Disease today for evaluation due to minimal improvement and probable need for skilled nursing IV abx and wound care in SNF (2) Sepsis affecting skin Code(s): A41.9 - SEPSIS, UNSPECIFIED ORGANISM Status: Resolved Comment: Large ulceration and denuded area of LLE, no systemic signs currently, continue IV Vancomycin, consult ID today (3) Diabetes type 2, controlled Code(s): E11.9 - TYPE 2 DIABETES MELLITUS WITHOUT COMPLICATIONS Status: Chronic Comment: Continue Detemir 25u sc BID, restart Glipizide 10mg daily and Metformin 1000mg BID, A1C >11, poor overall control skilled nursing (4) Obesity Code(s): E66.9 - OBESITY, UNSPECIFIED Status: Chronic Comment: Heart healthy , ADA diet (5) Rash and nonspecific skin eruption Code(s): R21 - RASH AND OTHER NONSPECIFIC SKIN ERUPTION Status: Acute Comment: ? drug rxn to current abx, d/c Zosyn, start Prednisone 40mg daily, Benadryl 25mg q6h, monitor for progression or regression - Plan continue antibiotics, PT/OT, community mental health social worker, out of bed/ambulate Stable overall -: Consult ID today, likely will need skilled nursing IV abx -: CM assisting with Rehab/SNF options for WCT and PT -: Continue Prednisone and Benadryl for drug rxn -: WCT with local care, add Santyl * .
--- NOTE | 2018-01-28 14:47 | ULT ---
LEFT LOWER EXTREMITY ARTERIAL ULTRASOUND WITH DOPPLER: Date: 01/28/18 HISTORY: Cellulitis, ulcer, questionable ischemia. COMPARISON: None. TECHNIQUE: Zuluaga scale, color flow, Doppler imaging, and spectral waveform analysis performed of the left lower e xtremity arterial system. FINDINGS: There is presence of triphasic flow in the common femoral artery, profunda femoral artery, proximal a nd mid superficial femoral artery, anterior tibial artery, posterior tibial artery, and dorsalis pedi s artery. Biphasic flow in the distal superficial femoral artery and popliteal artery. VELOCITIES LEFT LOWER EXTREMITY: Common femoral artery: 75.2 cm/sec Profunda femoral artery: 67.6 cm/sec SFA proximal: 92.5 cm/sec SFA mid: 84.6 cm/sec SFA distal: 605 cm/sec Popliteal artery: 62.2 cm/sec Anterior tibial artery: 68.8 cm/sec Posterior tibial artery: 123.0 cm/sec Dorsalis pedis artery: 65.1 cm/sec IMPRESSION: No significant stenosis. POS: [facility]
[2018-01-28] MEDS: cefTRIAXone\\ROCEPHIN 2 GM in Sodium Chloride 0.9% 100 ML IVPB SCH (15:41)
[2018-01-28] MEDS: Pravastatin Sodium 40 MG TAB PO SCH (20:56)
--- NOTE | 2018-01-28 22:42 | CON ---
DATE OF CONSULTATION: 01/28/2018 REASON FOR CONSULTATION: Left leg inflammatory changes. HISTORY OF PRESENT ILLNESS: A 57-year-old patient who has a history of type 2 diabetes and hypertens ion, who sustained a fall while she was inside her house the day before admission. According to the patient's own recollection, she had some balance problems, but was able to ambulate without major dif ficulty, but then fell backwards without losing her consciousness. She could not regain her position and reportedly remained on the floor, unable to get up for 24 hours until somebody got a hold of her . Reportedly, her boyfriend brought her to the emergency room. A few days before, she had experienc ed one episode of vomiting, but she denied any fever. No headaches, no dyspnea, no abdominal pain, n o genitourinary symptoms, no joint symptoms, no injury. On arrival, her temperature was 98.4, blood pressure 114/69, pulse 115 with 91% O2 sat on room air. She appeared awake and oriented, but appeare d volume depleted. Heart examination was normal. Lungs are clear. Abdomen is soft and nontender. She had edema left leg with erythema starting right below the knee all the way to the foot and she crooks d some erythema towards the groin area. A few blisters were noted in the back of her leg. INITIAL LABORATORY DATA: Initial white cell count 11,000 with quite significant bandemia of 38%, hem oglobin 14.1. Sodium 130, creatinine 0.9. Initial impression was cellulitis and she was prescribed broad-spectrum antimicrobial therapy and I w as called today because after 10-12 days in the hospital, there was concern with the progression of t he findings in the left leg. She had also developed lesions in the remaining aspects of her body, wh ich was felt to be possible reaction to antimicrobial therapy. Currently, Ms. Norman is awake. REVIEW OF SYSTEMS: 10-point review of system is negative. She has had no diarrhea. She still has q uite a bit of pain in the left leg. PAST MEDICAL HISTORY: Type 2 diabetes and hypertension. PAST SURGICAL HISTORY: Cholecystectomy, hernia repair, and localized breast biopsy which was benign. HOME MEDICATIONS: Aspirin, vitamin D, citalopram, glipizide, insulin, metformin, pravastatin. She h ad been on Zosyn, vancomycin, and clindamycin. The Zosyn was discontinued after she developed a reac tion in the legs. SOCIAL HISTORY: Never a smoker. Lives in the area. FAMILY HISTORY: Noncontributory except for diabetes. PHYSICAL EXAMINATION: VITAL SIGNS: T-max of 98.6, blood pressure 130/77, pulse 90, respirations 16, O2 sat 92%. GENERAL: Awake, alert, oriented, somewhat pale conjunctivae. Nasal passages patent. Oral cavity no rmal. NECK: Supple. LUNGS: Symmetric. Clear breath sounds. HEART: S1, S2, regular rate. No S3, S4. ABDOMEN: Soft, not distended or tender. The abdomen is a little bit boggy and globose. No evidence of ascites or organomegaly. No bladder distention. EXTREMITIES: No joint inflammatory activity. Left leg has this area of erythema, which is more like violaceous color change with dermal hemorrhage and there are extensive areas of blistering epidermal lysis in both anterior and posterior portion of the left leg, wrapping around. This extends from pr sumanth much upper third of the left leg all the way to the ankle. The erythema in the thigh has recede d and pretty much resolved. I could not feel any popliteal or dorsalis pedis pulses on either side. She is able to move extremities. Range of motion of the left and right ankle is intact. NEUROLOGIC: Her cognitive function appears to be intact. LABORATORY DATA: White cell count 8.5, hemoglobin 13, platelets 280 with 78% neutrophils. Chemistry showed a creatinine 0.72, sodium 139. The admit AST 39, ALT 56. Creatinine kinase was 941, alkalin e phosphatase was within normal limits. Bilirubin was within normal limits. Albumin 2.8 last checke d. Microbiology: We have negative blood cultures, final result. IMAGING STUDIES: Include chest x-ray on admission with no radiographic evidence of acute cardiopulmo nary process. There is a hip x-ray, which is limited study with no osseous abnormality. There is a vascular ultrasound from 01/17/2018, which is a venous ultrasound, no evidence of deep vein thrombosi s. A CT scan on 01/17/2018, which showed a fluid dense collection dermal or epidermal in posteromedi al aspect of the distal calf region and no intramuscular fluid or abscess collection. The most recen t imaging study from extremity showed arterial ultrasound, which was done on the , today, which s howed no significant stenosis with triphasic blood flow. ASSESSMENT: Type 2 diabetes, fall and then evidence of cellulitis with erysipelas like changes left leg with epidermal lysis and blistering with progressive improvement both in the evidence of inflamma tion through the peripheral blood count with decrease in bandemia as well as decrease in the amount o f and extent of erythema in the left lower extremity, still quite a bit of epidermal lysis and bliste ring. 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 In addition to that , the patient has this reaction which is more diffuse and has sort of wide purpuric papular changes. 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 At this point, we would recommend discontinuation of vancomycin, Cleocin, Zosyn transitioning to Rocephin 2 grams daily. Check arterial duplex ultrasound which has already been done. May need an MRI of the a ronen depending on clinical progress. Continue wound care. Eventually transition to oral Keflex ronald barry on clinical progress.
[2018-01-29] MEDS: Insulin Detemir 100 UNITS/ML 25 UNITS in Pre-Filled Syringe 1 EACH SC SCH ×3 (00:37→20:32)
[2018-01-29] MEDS: diphenhydrAMINE 25 MG CAP PO SCH ×4 (00:41→17:47)
[2018-01-29] MEDS: HumaLOG 300 UNITS/3 ML VIAL SC PRN ×4 (06:16→20:34)
[2018-01-29] MEDS: predniSONE 20 MG TAB PO SCH (07:31)
[2018-01-29] MEDS: Docusate 100 MG CAP PO SCH ×2 (07:32→20:31)
[2018-01-29] MEDS: metFORMIN 500 MG TAB PO SCH ×2 (07:32→17:47)
[2018-01-29] MEDS: Heparin 5,000 UNITS/ML VIAL SC SCH ×3 (07:32→20:32)
[2018-01-29] MEDS: Collagenase 250 UNITS/GM Ointment 30 GM TUBE TOP SCH (07:34)
[2018-01-29] MEDS: HYDROcodone/Acetaminophen 5/325 mg Tablet PO PRN ×3 (07:40→20:33)
[2018-01-29] MEDS: cefTRIAXone\\ROCEPHIN 2 GM in Sodium Chloride 0.9% 100 ML IVPB SCH (11:20)
--- NOTE | 2018-01-29 13:41 | PDOC.PN ---
- Subjective Encounter Start Date: 01/29/18 Encounter Start Time: 11:30 Keith is see today, had Wound dressing changed today, showed peeling off of the skin, good granulation tissue noted. - Objective MAR Reviewed: Yes Vital Signs & Weight: Vital Signs (12 hours) Temp Pulse Pulse Resp BP BP Pulse Ox 01/29/18 09:05 88 155/96 H 01/29/18 08:19 98.6 F 88 18 155/96 H 91 L 01/29/18 08:00 98.6 F 88 18 93 L Weight Admit Weight 261 lb 12.8 oz Weight 261 lb 12.8 oz I&O: 01/28/18 01/29/18 01/30/18 06:59 06:59 06:59 Intake Total 1690 Balance 1690 Result Diagrams: 01/24/18 03:51 01/24/18 03:51 Additional Labs: Accuchecks 01/29/18 01/29/18 01/28/18 11:17 05:08 20:23 POC Glucose 200 H 162 H 215 H 01/28/18 16:45 POC Glucose 263 H Radiology Reviewed by me: Yes Dx/Plan (1) Left leg cellulitis Code(s): L03.116 - CELLULITIS OF LEFT LOWER LIMB Status: Acute Comment: consult Infectious Disease suggested Rocephin, which is started yesterday, imrpovement noted, will continue till wednesday. Change to po keflex if shows good improveemnt. (2) Rash and nonspecific skin eruption Code(s): R21 - RASH AND OTHER NONSPECIFIC SKIN ERUPTION Status: Acute Comment: ? will wesan off of the Steroids. (3) Depression Code(s): F32.9 - MAJOR DEPRESSIVE DISORDER, SINGLE EPISODE, UNSPECIFIED Status : Chronic Comment: robert, No worsneing depression. (4) Diabetes type 2, controlled Code(s): E11.9 - TYPE 2 DIABETES MELLITUS WITHOUT COMPLICATIONS Status: Chronic Comment: Continue Detemir 25u sc BID, restart Glipizide 10mg daily and Metformin 1000mg BID, A1C >11, poor overall control long-term (5) Dyslipidemia Code(s): E78.5 - HYPERLIPIDEMIA, UNSPECIFIED Status: Chronic (6) Obesity Code(s): E66.9 - OBESITY, UNSPECIFIED Status: Chronic Comment: Heart healthy , ADA diet - Plan cont current plan of care, continue antibiotics, PT/OT, social services manager, respiratory therapy, out of bed/ambulate, DVT proph w/lovenox * . - Discharge Day Encounter end time: 12:05 Review of Systems - Review of Systems Eyes: negative: Pain, Vision Change, Conjunctivae Inflammation, Eyelid Inflammation, Redness, Other ENT: negative: Ear Pain, Ear Discharge, Nose Pain, Nose Discharge, Nose Congestion, Mouth Pain, Mouth Swelling, Throat Pain, Throat Swelling, Other Respiratory: negative: Cough, Dry, Shortness of Breath, Hemoptysis, SOB with Excertion, Pleuritic Pain, Sputum, Wheezing Cardiovascular: negative: chest pain, palpitations, orthopnea, paroxysmal nocturnal dyspnea, edema, light headedness, other Gastrointestinal: negative: Nausea, Vomiting, Abdominal Pain, Diarrhea, Constipation, Melena, Hematochezia, Other Skin: Other (No signs of worsening infection) - Medications/Allergies Allergies/Adverse Reactions: Allergies Allergy/AdvReac Type Severity Reaction Status Date / Time losartan Allergy FACIAL AND Verified 06/19/16 09:30 THROAT SWELLING sulfamethoxazole Allergy FACIAL AND Verified 06/19/16 09:30 [From Bactrim] THROAT SWELLING trimethoprim [From Bactrim] Allergy FACIAL AND Verified 06/19/16 09:30 THROAT SWELLING Medications: Current Medications Acetaminophen (Tylenol) 650 mg PO Q4H PRN PRN Reason: Headache/Fever or Pain Last Admin: 01/17/18 14:23 Dose: 650 mg Hydrocodone Bitart/Acetaminophen ([place] 5/325) 1 tab PO Q4H PRN PRN Reason: Moderate Pain (4-6) Last Admin: 01/28/18 15:40 Dose: 1 tab Hydrocodone Bitart/Acetaminophen ([place] 5/325) 2 tab PO Q4H PRN PRN Reason: Moderate to Severe Pain (6-10) Last Admin: 01/29/18 07:40 Dose: 2 tab Aspirin (Aspirin Chewable) 81 mg PO DAILY [facility] Last Admin: 01/29/18 07:32 Dose: 81 mg Cholecalciferol (Vitamin D3) 2,000 units PO DAILY [facility] Last Admin: 01/29/18 07:31 Dose: 2,000 units Collagenase (Santyl 250 Units/Gram Ointment) 1 gm TOP DAILY [facility] Last Admin: 01/29/18 07:34 Dose: 1 gm Dextrose/Water (Dextrose 50%) 25 gm SLOW IVP PRN PRN PRN Reason: Hypoglycemia Diphenhydramine HCl (Benadryl) 25 mg PO Q6H [facility] Last Admin: 01/29/18 11:21 Dose: 25 mg Docusate Sodium (Colace) 100 mg PO BID [facility] Last Admin: 01/29/18 07:32 Dose: 100 mg Glipizide (Glucotrol Xl) 10 mg PO DAILY [facility] Last Admin: 01/29/18 07:31 Dose: 10 mg Glucagon (Glucagon) 1 mg IM PRN PRN PRN Reason: Hypoglycemia Heparin Sodium (Porcine) (Heparin) 5,000 units SC TID [facility] Last Admin: 01/29/18 07:32 Dose: 5,000 units Dextrose/Water (D5w) 1,000 mls @ 0 mls/hr IV .Q0M PRN; As Directed PRN Reason: Hypoglycemia Insulin Detemir 25 units/ (Miscellaneous Medication) 0.25 mls @ 0 mls/hr SC BID [facility] Last Admin: 01/29/18 07:32 Dose: 0.25 mls Ceftriaxone Sodium 2 gm/ (Sodium Chloride) 100 mls @ 200 mls/hr IVPB Q24HR [facility] Last Admin: 01/29/18 11:20 Dose: 100 mls Ibuprofen (Motrin) 200 mg PO Q6H PRN PRN Reason: Headache Last Admin: 01/28/18 05:53 Dose: 200 mg Insulin Human Lispro (Humalog) 0 units SC .AGGRESSIVE SLIDING PRN PRN Reason: Aggressive Correctional Scale Last Admin: 01/29/18 11:21 Dose: 2 unit Insulin Human Lispro (Humalog) 0 units SC .BEDTIME SLIDING SC PRN; Protocol PRN Reason: BEDTIME SLIDING SCALE Last Admin: 01/28/18 21:00 Dose: 2 unit Metformin HCl (Glucophage) 1,000 mg PO BID-[facility] Last Admin: 01/29/18 07:32 Dose: 1,000 mg Pravastatin Sodium (Pravachol) 80 mg PO HS [facility] Last Admin: 01/28/18 20:56 Dose: 80 mg Prednisone (Prednisone) 40 mg PO QAM-[facility] Last Admin: 01/29/18 07:31 Dose: 40 mg Sodium Chloride (Flush - Normal Saline) 10 ml IVF Q12HR [facility] Last Admin: 01/29/18 07:34 Dose: 10 ml Sodium Chloride (Flush - Normal Saline) 10 ml IVF PRN PRN PRN Reason: Saline Flush Venlafaxine HCl (Effexor) 75 mg PO BID [facility] Last Admin: 01/29/18 07:32 Dose: 75 mg
[2018-01-29] MEDS: Pravastatin Sodium 40 MG TAB PO SCH (20:30)
[2018-01-30] MEDS: diphenhydrAMINE 25 MG CAP PO SCH ×5 (00:22→21:40)
[2018-01-30] MEDS: predniSONE 20 MG TAB PO SCH (08:32)
[2018-01-30] MEDS: metFORMIN 500 MG TAB PO SCH ×2 (08:36→15:57)
[2018-01-30] MEDS: HYDROcodone/Acetaminophen 5/325 mg Tablet PO PRN ×2 (08:36→15:18)
[2018-01-30] MEDS: Heparin 5,000 UNITS/ML VIAL SC SCH ×2 (08:40→15:57)
[2018-01-30] MEDS: Insulin Detemir 100 UNITS/ML 25 UNITS in Pre-Filled Syringe 1 EACH SC SCH ×2 (08:40→21:40)
[2018-01-30] MEDS: Collagenase 250 UNITS/GM Ointment 30 GM TUBE TOP SCH (08:40)
[2018-01-30] MEDS: Docusate 100 MG CAP PO SCH ×2 (08:41→21:40)
[2018-01-30] MEDS: cefTRIAXone\\ROCEPHIN 2 GM in Sodium Chloride 0.9% 100 ML IVPB SCH (12:37)
[2018-01-30] MEDS: HumaLOG 300 UNITS/3 ML VIAL SC PRN ×2 (14:30→18:34)
--- NOTE | 2018-01-30 16:44 | PDOC.PN ---
- Subjective Encounter Start Date: 01/30/18 Encounter Start Time: 16:40 Subjective: f/u for extensive LLE cellulitis/ulceration on current Rocephin receiving -: local wound care. Ambulates independently for short distances. -: Feels good overall, some leg pain with gravity or flexing ankle - Objective MAR Reviewed: Yes Vital Signs & Weight: Vital Signs (12 hours) Temp Pulse Resp BP Pulse Ox 01/30/18 08:00 98.1 F 82 20 158/90 H 91 L Weight Admit Weight 261 lb 12.8 oz Weight 261 lb 12.8 oz I&O: 01/29/18 01/30/18 01/31/18 06:59 06:59 06:59 Intake Total 1690 360 Balance 1690 360 Result Diagrams: 01/24/18 03:51 01/24/18 03:51 Additional Labs: Accuchecks 01/30/18 01/30/18 01/29/18 11:01 04:54 20:22 POC Glucose 183 H 119 H 211 H 01/29/18 17:06 POC Glucose 210 H Phys Exam - Physical Examination Constitutional: NAD HEENT: PERRLA, oral pharynx no lesions Neck: no JVD, supple Respiratory: no wheezing, clear to auscultation bilateral Cardiovascular: RRR Gastrointestinal: soft, non-tender, no distention, positive bowel sounds LLE with edema and erythema distally Musculoskeletal: pulses present Neurological: normal sensation, moves all 4 limbs Psychiatric: A&O x 3 Deviation from normal: generalized maculopapular eruption on U/LE's present, some coalescing noted Skin: normal turgor, cap refill <2 seconds Dx/Plan (1) Left leg cellulitis Code(s): L03.116 - CELLULITIS OF LEFT LOWER LIMB Status: Acute Comment: Improving slowly, current Rocephin, consider oral options for d/c, WCT for local care (2) Sepsis affecting skin Code(s): A41.9 - SEPSIS, UNSPECIFIED ORGANISM Status: Resolved Comment: Large ulceration and denuded area of LLE, no systemic signs currently, Rocephin , WCT for local care (3) Diabetes type 2, controlled Code(s): E11.9 - TYPE 2 DIABETES MELLITUS WITHOUT COMPLICATIONS Status: Chronic Comment: Continue Detemir 25u sc BID, restart Glipizide 10mg daily and Metformin 1000mg BID, A1C >11, poor overall control custodial (4) Obesity Code(s): E66.9 - OBESITY, UNSPECIFIED Status: Chronic Comment: Heart healthy , ADA diet (5) Rash and nonspecific skin eruption Code(s): R21 - RASH AND OTHER NONSPECIFIC SKIN ERUPTION Status: Acute Comment: Continue Prednisone, decrease dose in next 24h - Plan continue antibiotics, PT/OT, social media project manager, out of bed/ambulate, DVT proph w/ lovenox Stable overall -: Continue Rocephin 2gm IV daily -: WCT for local care -: OOB/ambulate -: Continue Glipizide and Levemir * ? SNF options for home with home health
[2018-01-30] MEDS: Pravastatin Sodium 40 MG TAB PO SCH (21:39)
[2018-01-31] MEDS: diphenhydrAMINE 25 MG CAP PO SCH ×3 (03:08→15:13)
[2018-01-31] MEDS: metFORMIN 500 MG TAB PO SCH (08:15)
[2018-01-31] MEDS: predniSONE 20 MG TAB PO SCH (08:15)
[2018-01-31] MEDS: Docusate 100 MG CAP PO SCH (08:16)
[2018-01-31] MEDS: Insulin Detemir 100 UNITS/ML 25 UNITS in Pre-Filled Syringe 1 EACH SC SCH (08:16)
[2018-01-31] MEDS: Collagenase 250 UNITS/GM Ointment 30 GM TUBE TOP SCH (08:21)
[2018-01-31] MEDS ORDERED: Enoxaparin Sodium 40 MG/0.4 ML SYRINGE SC SCH (09:00)
[2018-01-31] MEDS: HYDROcodone/Acetaminophen 5/325 mg Tablet PO PRN (09:54)
[2018-01-31] MEDS: HumaLOG 300 UNITS/3 ML VIAL SC PRN (11:23)
[2018-01-31] MEDS: cefTRIAXone\\ROCEPHIN 2 GM in Sodium Chloride 0.9% 100 ML IVPB SCH (11:23)
--- NOTE | 2018-01-31 15:04 | DIS ---
DATE OF ADMISSION: 01/15/2018 DATE OF DISCHARGE: 01/31/2018 DISCHARGE DIAGNOSES: 1. Left lower extremity cellulitis/ulceration, likely secondary to streptococcal and Staphylococcus species, slow clinical improvement. 2. Sepsis affecting the skin secondary to #1, improved. 3. Diabetes mellitus, type 2, insulin requiring. 4. Drug reaction, specific agent not identified, improved. 5. Morbid obesity. CONSULTATIONS: Dr. Marino with Infectious Disease service. Dr. Davies with General Surgery service. PERTINENT LAB AND X-RAY FINDINGS: Sodium ranged between 130-142, potassium ranged between 3.3-4.0. Total CK of 941. TSH 0.38. CBC showed a white blood cell count ranging between 7.7-11.5. Blood cul tures x2 from 01/15/2018 showed no growth at 5 days. Portable chest x-ray dated 01/15/2018 showed no acute cardiopulmonary process. Two views of bilateral hips dated 01/16/2018 showed no acute process . Left lower extremity venous Doppler study dated 01/17/2018 showed no evidence for DVT. CT of the left lower extremity dated 01/17/2018 showed a fluid dense collection in the dermal or epidermal orig in of the posterior medial aspect of the qrw-zk-yxruly calf region. Subcutaneous tissue with increas ed density in the mid calf to the ankle, suggestive of cellulitis. No intramuscular fluid or abscess collection. Left lower extremity arterial Doppler study dated 01/28/2018 showed no significant sten osis. HOSPITAL COURSE: Patient was admitted to the medical floor after initially presenting with increased left lower extremity pain. The patient sustained a mechanical fall prior to admission after losing her balance, and apparently was stranded on the floor for approximately 24 hours before getting up. The patient presented with significant erythema and edema to the left lower extremity, prompting the studies as stated previously. The patient was initially placed on vancomycin and Zosyn pending blood culture results. The patient was noted with a mild leukocytosis with a white blood cell count of 11 .5 initially. The patient received local care and underwent imaging evaluation including plain radio graphs, CT, and vascular study, all showing essentially negative findings. The patient was evaluated by the General Surgery Service without recommendations for surgical intervention, as there was no ev idence of drainable fluid or abscess collection. The patient received general supportive measures in cluding IV fluids and continued on IV antibiotic therapy. The patient's hospital course was prolonge d as left lower extremity cellulitis progressed with increasing erythema to the mid thigh. The patie nt was treated with IV Zosyn, vancomycin, and eventual clindamycin with a protracted hospital course due to slow healing. The patient was reevaluated and consultation was obtained by Infectious Disease service after concern for worsening of cellulitis and ulceration when reviewed during the wound care dressing changes. Arterial Doppler studies were performed showing normal flow volumes in the distal extremity. The patient's wound care treatment was adjusted to include Santyl ointment for collagena se and enzymatic debridement. The patient did develop a drug reaction, which was unclear etiology, a t which point all antibiotic therapy was discontinued including vancomycin, Zosyn, and clindamycin. The patient was transitioned to Rocephin 2 grams IV q.24 hours and given low-dose prednisone and Delavan dryl for symptomatic relief. Due to patient's left lower extremity condition and decreased mobility status, the patient was evaluated by Physical Therapy service with recommendations for ongoing physic al therapy and occupational therapy in a supervised setting. The patient was approved for [facility] for ongoing wound care and IV antibiotic therapy. I have examined and dis cussed the treatment course with the patient at the time of discharge, who verbalizes understanding a nd agreement. The patient will transfer to [facility], 01/31/2018. DISCHARGE MEDICATIONS: 1. Enteric-coated aspirin 81 mg 1 tab p.o. daily. 2. Rocephin 2 grams IV q.24 hours until 02/15/2018. 3. Vitamin D3 2000 units p.o. daily. 4. Citalopram 40 mg p.o. at bedtime. 5. Benadryl 25 mg p.o. q.6 hours p.r.n. 6. Lovenox 40 mg subcutaneously daily. 7. Glucotrol-XL 10 mg p.o. daily. 8. Fults 5/325 mg 1-2 tabs p.o. q.4-6 hours p.r.n. pain. 9. Motrin 200 mg p.o. every 6 hours p.r.n. 10. Levemir 25 units subcutaneously b.i.d. 11. Metformin 1000 mg p.o. b.i.d. 12. Pravachol 80 mg p.o. at bedtime. 13. Prednisone 20 mg 1 tab p.o. daily x3 days, followed by 1/2 tab p.o. daily x3 days. 14. Santyl ointment applied topically to left lower extremity wound with dressing changes. 15. Effexor 75 mg p.o. b.i.d. FOLLOWUP: Patient will follow up with her primary care provider, Dr. Negro, after discharge from acute inpatient rehabilitation. CONDITION ON DISCHARGE: Stable. ACTIVITY: Ad markie. Rolling walker with standby assistance for ambulation. DIET: ADA and heart healthy. SPECIAL INSTRUCTIONS: Continue IV Rocephin until 02/15/2018. Continue local wound care with dressin g changes per wound care instructions. CODE STATUS: FULL. DISPOSITION: Discharged to [facility], 01/31/2018. Total time in preparing and coordinating discharge is 37 minutes.
[2018-01-31 16:28] VITALS: BP 168/82; TEMP 97.6
--- NOTE | 2018-02-01 07:11 | PRG ---
DATE OF SERVICE: 01/31/2018 The patient is feeling better. No headaches. No shortness of breath or abdominal pain, no diarrhea. Pain in the left leg is improving. PHYSICAL EXAMINATION: VITAL SIGNS: She is afebrile. LUNGS: Clear. HEART: S1, S2, regular rate. EXTREMITIES: Left leg dressing was not removed, but I have discussed the case with the wound care pe rson and seems to be improving the base of the wounds. ASSESSMENT AND DISCUSSION: Likely beta hemolytic streptococcal cellulitis with epidermal lysis. The patient to continue Rocephin after transfer to rehab and then transitioned to oral Keflex. The donald ent will benefit from secondary prophylaxis with penicillin VK after completion of treatment.
--- NOTE | 2018-02-04 13:06 | PQF ---
NANCY LINKSIDNEY DO [id number] CLINICAL DOCUMENTATION CLARIFICATION FORM: POST DISCHARGE Addendum to original discharge summary date: 01/31/2018 DATE: 02/04/2018 ATTN: Dr. Roth Please exercise your independent, professional judgment in responding to the clarification form. Clinical indicators are provided on the bottom of this form for your review Diagnosis of "Sepsis of the skin" codes out to an abscess. For clarification please specify as: Please check appropriate box(es): [ x ] Sepsis of the skin only due to cellulitis (abscess) : [ ] Cellulitis of the skin which has progressed to Sepsis (generalized) [ ] Other diagnosis (please specify) [ ] Unable to determine In addition, please specify: Present on Admission (POA): [ x ] Yes [ ] No [ ] Unable to determine For continuity of documentation, please document condition throughout progress notes and discharge summary. Thank You. CLINICAL INDICATORS - SIGNS / SYMPTOMS / LABS (per H&P) Tachycardia. WBC count 11.5 with bands 38. RISK FACTORS Per discharge summary: Streptococcal and Staphylococcal left lower extremity cellulitis/ulceration. TREATMENTS: Daily CBC. Blood/wound cultures. ID Consult. IV Zosyn, Vancomycin and Clindamycin. Transitioned to IV Rocephin due to drug reaction. IV Fluids. (This form is maintained as a part of the permanent medical record) 2014 [employer], [employer]. All Rights Reserved [email or web address] [email or web address] [phone] MTDD
== END 2018-01-31 16:28 | DRG 872 ==
LOC: ERS 16:03 → T4-A 20:17 → OBSVTOIN 20:22 → T4-A 20:22
PROVIDERS: ADMIT Internal Medicine; ATTEND Internal Medicine
DX: A41.9 Sepsis, unspecified organism (principal); L03.116 Cellulitis of left lower limb; L97.929 Non-pressure chronic ulcer of unspecified part of left lower leg with unspecified severity; Z68.41 Body mass index [BMI] 40.0-44.9, adult; L02.416 Cutaneous abscess of left lower limb; E66.01 Morbid (severe) obesity due to excess calories; E11.9 Type 2 diabetes mellitus without complications; E78.5 Hyperlipidemia, unspecified; E86.0 Dehydration; I10 Essential (primary) hypertension; F32.9 Major depressive disorder, single episode, unspecified; L27.0 Generalized skin eruption due to drugs and medicaments taken internally; Z79.82 Long term (current) use of aspirin; Z79.4 Long term (current) use of insulin; Z79.899 Other long term (current) drug therapy; Z88.2 Allergy status to sulfonamides; Z88.8 Allergy status to other drugs, medicaments and biological substances; T50.905A Adverse effect of unspecified drugs, medicaments and biological substances, initial encounter; Y92.239 Unspecified place in hospital as the place of occurrence of the external cause
CPT/HCPCS: 36415; 36416; 71045; 73521; 80048; 80053; 80202; 82550; 83036; 83930; 84443; 85025; 87040; 93923; 96365; 96366; 96375; A4216; G8978-GP-CM; G8979-GP-CK; J0696; J1644; J1650; J1815; J2270; J2543; J3370; J7050; J7506

== ENCOUNTER 2018-02-16 08:27 | Outpatient (CLI) | payer BC ==
[2018-02-16] MEDS ORDERED: Sodium Chloride 0.9% 15 ML NEB ONE (09:00)
--- NOTE | 2018-02-16 10:53 | PRG ---
DATE OF SERVICE: 02/16/2018 HISTORY: Ms. Marielle Norman is a very pleasant 57-year-old who presents to the Wound Center for evaluation of multiple ulcerations of the left lower leg. The patient was previously seen in the Wound Center on 12/01/2017 for an ulceration of the dorsum of the right third toe. Ms. Norman was admitted to [facility] on 01/15/2018 with cellulitis of the left lower leg. During the patient's hospital stay, Ms. Norman was seen in consultation by Infectious Diseases. The patient states she has received IV antibiotics through her PICC line, which was inserted on 02/07/2018. The patient states that the wounds of her left lower leg have significantly improved in their appearance. PHYSICAL EXAMINATION: VITAL SIGNS: Temperature 98.2, pulse 100, respirations 19, blood pressure 149/ 70. Accu-Chek 139. EXTREMITIES: Two wounds of the left lower leg are present, which measure approximately 7.5 x 5.0 cm and 3.0 x 1.0 cm. No purulent drainage is associated with either wound. A dorsalis pedis pulse is palpable on the left. No significant edema of the left foot or lower leg is appreciated on exam today. ASSESSMENT AND PLAN: 1. Ulcerations of left lower leg as described above. The patient was recently discharged from [facility] after admission for cellulitis of the left lower leg. The patient stated she was discharged on . Dressing changes of Xeroform, Kerlix, and an Rajat bandage are to be performed on a daily basis after cleansing and irrigation. I will see Ms. Norman again in 1 week. Santyl at the time of dressing changes will be discontinued. 2. Diabetes mellitus. The patient's Accu-Chek in clinic today is 139. The patient has been told that for optimal wound healing, her blood glucoses should remain below 150. 3. Hypertension. MTDD
== END 2018-02-16 08:28 | disposition home or self-care (01) ==
LOC: WCC 08:27
PROVIDERS: ATTEND Family Medicine
DX: E11.621 Type 2 diabetes mellitus with foot ulcer (principal); L97.929 Non-pressure chronic ulcer of unspecified part of left lower leg with unspecified severity; I10 Essential (primary) hypertension
CPT/HCPCS: 97602; A4218

== ENCOUNTER 2018-02-23 08:27 | Outpatient (CLI) | payer BC ==
--- NOTE | 2018-02-23 10:09 | PRG ---
DATE OF SERVICE: 02/23/2018 HISTORY: Ms. Marielle Norman is a very pleasant 57-year-old who presents to the Wound Center for eval uation of multiple ulcerations of the left lower leg. The patient was previously seen in the Wound C enter on 12/01/2017 for an ulceration of the dorsum of the right third toe. The patient was admitted to [facility] on 01/15/2018 with cellulitis of the left lower leg. During e patient's hospital stay, Ms. Norman was seen in consultation by Infectious Diseases. The patient stated she has received IV antibiotics through her PICC line which was inserted on 02/07/2018. Agai n, the patient states that the appearance of her left lower leg has significantly improved. PHYSICAL EXAMINATION: VITAL SIGNS: Temperature 97.7, pulse 97, respirations 19, blood pressure 163/74. Accu-Chek 88. EXTREMITIES: Only one wound of the left lower leg remains which measures approximately 7.0 x 3.7 cm. No purulent drainage is associated with the wound. No cellulitis of the left lower leg is apprecia sofia. No maceration of the skin of the left lower leg is present. No significant edema of the left f oot or lower leg is present on exam today. ASSESSMENT AND PLAN: 1. Ulceration of left lower leg as described above. The patient was discharged from [facility] on 01/31/2018 after admission for cellulitis of the left lower leg. Dressing bruce ges of Xeroform, Kerlix, and an Rajat bandage will be continued on a daily basis after cleansing and ir rigation. Arrangements will be made for the home delivery of dressing supplies. I will see Ms. Ericka medina again in 2 weeks. 2. Diabetes mellitus. The patient's Accu-Chek in clinic today is 88. The patient has been reminded that for optimal wound healing, her blood glucoses should remain below 150. 3. Hypertension.
[2018-02-23] MEDS ORDERED: Sodium Chloride 0.9% 15 ML NEB ONE (16:56)
== END 2018-02-23 08:28 | disposition home or self-care (01) ==
LOC: WCC 08:27
PROVIDERS: ATTEND Family Medicine
DX: E11.622 Type 2 diabetes mellitus with other skin ulcer (principal); L97.929 Non-pressure chronic ulcer of unspecified part of left lower leg with unspecified severity; I10 Essential (primary) hypertension
CPT/HCPCS: A4218

== ENCOUNTER 2018-03-09 08:33 | Outpatient (CLI) | payer BC ==
[2018-03-09] MEDS ORDERED: Sodium Chloride 0.9% 15 ML NEB ONE (09:00)
--- NOTE | 2018-03-09 09:57 | PRG ---
DATE OF SERVICE: 03/09/2018 HISTORY: Ms. Marielle Norman is a very pleasant 57-year-old who presents to the Wound Center for eval uation of multiple ulcerations of the left lower leg. The patient was previously seen in the Wound C enter on 12/01/2017 for an ulceration of the dorsum of the right third toe. The patient was admitted to [facility] on 01/15/2018 with cellulitis of the left lower leg. During e patient's hospital stay, Ms. Norman was seen in consultation by Infectious Diseases. The patient stated she has received IV antibiotics through her PICC line which was inserted on 02/07/2018. The patient has been performing dressing changes of Xeroform, Kerlix, and an Rajat bandage for the remainin g left lower leg wound. PHYSICAL EXAMINATION: VITAL SIGNS: Temperature 98.1, pulse 99, respirations 18, blood pressure 160/76. Accu-Chek 223. EXTREMITIES: Only one wound of the left lower leg remains which measures approximately 4.0 x 7.0 cm. No purulent drainage is associated with the wound. No cellulitis of the left lower leg is apprecia sofia. No maceration of the skin of the periwound is noted. No significant edema of the left foot or lower leg is present on exam today. ASSESSMENT AND PLAN: 1. Ulceration of left lower leg as described above. The patient was discharged from [facility] on 01/31/2018 after admission for cellulitis of the left lower leg. Dressing bruce ges of Xeroform, gauze, Kerlix, and an Rajat bandage will be continued on a daily basis after cleansing and irrigation. Arrangements were previously made for the home delivery of dressing supplies. I wi ll see Mr. Norman again in 2 weeks. 2. Diabetes mellitus. The patient's Accu-Chek in clinic today is 223. The patient has been reminde d that for optimal wound healing, her blood glucoses should remain below 150. 3. Hypertension.
== END 2018-03-09 08:34 | disposition home or self-care (01) ==
LOC: WCC 08:33
PROVIDERS: ATTEND Family Medicine
DX: E11.622 Type 2 diabetes mellitus with other skin ulcer (principal); L97.929 Non-pressure chronic ulcer of unspecified part of left lower leg with unspecified severity; I10 Essential (primary) hypertension
CPT/HCPCS: 29581; A4218

== ENCOUNTER 2018-03-21 12:55 | Outpatient (CLI) | payer BC ==
--- NOTE | 2018-03-21 15:10 | PRG ---
DATE OF SERVICE: 03/21/2018 HISTORY: Ms. Marielle Norman is a very pleasant 57-year-old, who presents to the Wound Center for lidia luation of multiple ulcerations of the left lower leg. The patient was previously seen in the Wound Center on 12/01/2017 for an ulceration of the dorsum of the right third toe. The patient was admitte d to [facility] on 01/15/2018 with cellulitis of the left lower leg. During t he patient's hospital stay, Ms. Norman was seen in consultation by Infectious Diseases. The patien t stated she has received IV antibiotics through her PICC line, which was inserted on 02/07/2018. Th e patient has been performing dressing changes of Xeroform gauze, Kerlix, and an Rajat bandage for the remaining left lower leg wound since her last visit to the Wound Center. PHYSICAL EXAMINATION: VITAL SIGNS: Temperature 98.0, pulse 119, respirations 16, blood pressure 145/78. Accu-Chek 181. EXTREMITIES: Only one wound of the left lower leg remains, which measures approximately 2.8 x 7.0 cm . No purulent drainage is associated with the wound. No cellulitis of the left lower leg is appreci ated. No maceration of the skin of the periwound is noted. No significant edema of the left foot or lower leg is present on exam today. ASSESSMENT AND PLAN: 1. Ulceration of left lower leg as described above. The patient was discharged from [facility] on 01/31/2018 after admission for cellulitis of the left lower leg. Dressing bruce ges of Xeroform gauze, Kerlix, and an Rajat bandage will be continued on a daily basis after cleansing and irrigation. Arrangements were previously made for the home delivery of dressing supplies. I lazaro l see Ms. Norman again in two weeks. 2. Diabetes mellitus. The patient's Accu-Chek in clinic today is 181. The patient has been reminde d that for optimal wound healing, her blood glucoses should remain below 150. 3. Hypertension.
[2018-03-21] MEDS ORDERED: Lidocaine 2% Jelly 5 ML TUBE ONE (16:31)
== END 2018-03-21 12:56 | disposition home or self-care (01) ==
LOC: WCC 12:55
PROVIDERS: ATTEND Family Medicine
DX: E11.622 Type 2 diabetes mellitus with other skin ulcer (principal); L97.929 Non-pressure chronic ulcer of unspecified part of left lower leg with unspecified severity; I10 Essential (primary) hypertension

== ENCOUNTER 2018-04-14 08:10 | Outpatient (CLI) | payer BC ==
--- NOTE | 2018-04-14 08:44 | PRG ---
DATE OF SERVICE: 04/14/2018 HISTORY: Ms. Marielle Norman is a very pleasant 57-year-old who presents to the Wound Center for eval uation of multiple ulcerations of the left lower leg. The patient was previously seen in the Wound C enter on 12/01/2017 for an ulceration of the dorsum of the right third toe. The patient was admitted to [facility] on 01/15/2018 with cellulitis of the left lower leg. During th e patient's hospital stay, Ms. Norman was seen in consultation by Infectious Diseases. The patient stated she has received IV antibiotics through her PICC line, which was inserted on 02/07/2018. The patient has been performing dressing changes of Xeroform gauze, Kerlix, and an Rajat bandage for her r emaining left lower leg wound since the patient's last visit to the Wound Center. PHYSICAL EXAMINATION: VITAL SIGNS: Temperature 97.9, pulse 112, respirations 19, blood pressure 177/86. Accu-Chek 384. EXTREMITIES: Only one wound of the left lower leg remains, which measures approximately 6.0 x 2.5 cm . The dimensions of the wound at the time of the patient's last visit were approximately 7 x 2.8 cm. No purulent drainage is associated with the wound. No cellulitis of the left lower leg is apprecia sofia. No maceration of the skin of the periwound is noted. No significant edema of the left foot or lower leg is present on today's exam. ASSESSMENT AND PLAN: 1. Ulceration of left lower leg as described above. The patient was discharged from [facility] on 01/31/2018 after admission for cellulitis of the left lower leg. Dressing bruce ges of Xeroform gauze, Kerlix, and an Rajat bandage will be continued on a daily basis after cleansing and irrigation. Previously arrangements were made for the home delivery of dressing supplies. I lazaro l see Ms. Norman again in two weeks. 2. Diabetes mellitus. The patient's Accu-Chek in clinic today is 381. The patient has been told th at for optimal wound healing, her blood glucoses should remain below 150. 3. Hypertension.
[2018-04-14] MEDS ORDERED: Lidocaine 2% Jelly 5 ML TUBE ONE (10:00)
[2018-04-14] MEDS ORDERED: Sodium Chloride 0.9% 15 ML NEB ONE (10:00)
== END 2018-04-14 08:11 | disposition home or self-care (01) ==
LOC: WCC 08:10
PROVIDERS: ATTEND Family Medicine
DX: E11.622 Type 2 diabetes mellitus with other skin ulcer (principal); L97.929 Non-pressure chronic ulcer of unspecified part of left lower leg with unspecified severity; I10 Essential (primary) hypertension
CPT/HCPCS: 97602; A4218

== ENCOUNTER 2018-04-28 09:15 | Outpatient (CLI) | payer BC ==
--- NOTE | 2018-04-28 10:12 | PRG ---
DATE OF SERVICE: 04/28/2018 HISTORY: Ms. Marielle Norman is a very pleasant 57-year-old who presents to the Wound Center for eval uation of multiple ulcerations of the left lower leg. The patient was previously seen in the Wound C enter on 12/01/2017 for an ulceration of the dorsum of the right third toe. The patient was admitted to [facility] on 01/15/2018 with cellulitis of the left lower leg. During e patient's hospital stay, Ms. Norman was seen in consultation by Infectious Diseases. The patient stated that she has received IV antibiotics through her PICC line which was inserted on 02/07/2018. Since the patient's last visit to the Wound Center, Ms. Peralta has been performing dressing changes of Xeroform gauze, Kerlix, and an Rajat bandage for the remaining left lower leg wound. PHYSICAL EXAMINATION: VITAL SIGNS: Temperature 97.8, pulse 100, respirations 18, blood pressure 165/92. Accu-Chek 294. EXTREMITIES: Only one wound of the left lower leg remains which measures approximately 5.9 x 2.1 cm. The dimensions of the wound at the time of the patient's visit on 04/14/2018 were approximately 6.0 x 2.5 cm. No purulent drainage is associated with the wound. No cellulitis of the left lower extre mity is appreciated. No maceration of the skin of the periwound is noted. No significant edema of t he left foot or lower leg is present on exam today. ASSESSMENT AND PLAN: 1. Ulceration of left lower leg as described above. The patient was discharged from [facility] on 01/31/2018 after admission for cellulitis of the left lower leg. Dressing bruce ges of Xeroform gauze, Kerlix, and an Rajat bandage will be continued on a daily basis after cleansing and irrigation. Arrangements were previously made for the home delivery of dressing supplies. I lazaro l see Ms. Norman again in two weeks. 2. Diabetes mellitus. The patient's Accu-Chek in clinic today is 294. The patient has been reminde d that for optimal wound healing, her blood glucoses should remain below 150. 3. Hypertension.
[2018-04-28] MEDS ORDERED: Lidocaine 2% Jelly 5 ML TUBE ONE (19:00)
[2018-04-28] MEDS ORDERED: Sodium Chloride 0.9% 15 ML NEB ONE (19:00)
== END 2018-04-28 09:16 | disposition home or self-care (01) ==
LOC: WCC 09:15
PROVIDERS: ATTEND Family Medicine
DX: E11.622 Type 2 diabetes mellitus with other skin ulcer (principal); L97.929 Non-pressure chronic ulcer of unspecified part of left lower leg with unspecified severity; I10 Essential (primary) hypertension
CPT/HCPCS: A4218

== ENCOUNTER 2018-05-16 15:42 | Outpatient (CLI) | payer BC ==
[~2018-05-16 15:42] MED LIST: Lidocaine 2% Jelly 5 ML TUBE ONE; Sodium Chloride 0.9% 15 ML NEB ONE
--- NOTE | 2018-05-19 08:50 | PRG ---
DATE OF SERVICE: 05/16/2018 HISTORY: Ms. Marielle Norman is a very pleasant 58-year-old who presents to the Wound Center for eval uation of multiple ulcerations of the left lower leg. The patient was previously seen in the Wound C enter on 12/01/2017 for an ulceration of the dorsum of the right third toe. The patient was admitted to [facility] on 01/15/2018 with cellulitis of the left lower leg. During e patient's hospital stay, Ms. Norman was seen in consultation by Infectious Diseases. The patient stated that she received IV antibiotics through a PICC line which was inserted on 02/07/2018. Since the patient's last visit to the Wound Center Ms. Peralta has been performing dressing changes of Xer oform gauze, Kerlix, and an Rajat bandage for her remaining left lower leg wound. PHYSICAL EXAMINATION: VITAL SIGNS: Temperature 97.9, pulse 112, respirations 20, blood pressure 182/98. Accu-Chek 488. EXTREMITIES: Only one wound of the left lower leg remains which measures approximately 5.7 x 1.5 cm. The dimensions of the wound at the time of the patient's visit on 04/28/2018 were approximately 5.9 x 2.1 cm. No purulent drainage is associated with the wound. Granulation tissue is present within the wound margins. No cellulitis of the left lower extremity is present. No maceration of the skin of the periwound is noted. No significant edema of the left foot or lower leg is present on exam tod ay. ASSESSMENT AND PLAN: 1. Ulceration of left lower leg as described above. The patient was discharged from [facility] on 01/31/2018 after admission for cellulitis of the left lower leg. Dressing bruce ges of Xeroform gauze, Kerlix, and an Rajat bandage will be continued on a daily basis after cleansing and irrigation. Previously arrangements were made for the home delivery of dressing supplies. I lazaro l see Ms. Norman again in 2 weeks. 2. Diabetes mellitus. The patient's Accu-Chek in clinic today is 488. The patient has been reminde d that for optimal wound healing, her blood glucoses should remain below 150. 3. Hypertension.
== END 2018-05-16 15:43 | disposition home or self-care (01) ==
LOC: WCC 15:42
PROVIDERS: ATTEND Family Medicine
DX: E11.621 Type 2 diabetes mellitus with foot ulcer (principal); L97.529 Non-pressure chronic ulcer of other part of left foot with unspecified severity; L03.116 Cellulitis of left lower limb; I10 Essential (primary) hypertension
CPT/HCPCS: 36416; 97602; A4218

== ENCOUNTER 2018-05-30 15:34 | Outpatient (CLI) | payer BC ==
--- NOTE | 2018-05-30 19:30 | PRG ---
DATE OF SERVICE: 05/30/2018 HISTORY: Ms. Marielle Noramn is a very pleasant 58-year-old who presents to the Wound Center for eval uation of multiple ulcerations of the left lower leg. The patient was previously seen in the Wound C enter in 11/2017, for an ulceration of the dorsum of the right third toe. The patient was admitted t [facility] on 01/15/2018, with cellulitis of the left lower leg. During the patient's hospital stay, Ms. Norman was seen in consultation by Infectious Diseases. The patient stated that she received IV antibiotics through a PICC line which was inserted on 02/07/2018. Since the patient's last visit to the Wound Center, Ms. Norman has been performing dressing changes of Xe roform gauze, Kerlix, and an Rajat bandage for her remaining left lower leg wound. PHYSICAL EXAMINATION: VITAL SIGNS: Temperature 98.3, pulse 97, respirations 17, blood pressure 146/83. Accu-Chek 289. EXTREMITIES: Only one wound of the left lower leg remains, which measures approximately 5.2 x 1.5 cm . The dimensions of the wound at the time of the patient's visit on 05/16/2018, were approximately 5 .7 x 1.5 cm. Granulation tissue is present within the wound margins. No purulent drainage is associ ated with the wound. No cellulitis of the left lower extremity is present. No maceration of the ski n of the periwound is noted. No significant edema of the left foot or lower leg is present on exam t maria antonia. ASSESSMENT AND PLAN: 1. Ulceration of left lower leg as described above. The patient was discharged from [facility] on 01/31/2018, after admission for cellulitis of the left lower leg. Dressing kavon nges of Xeroform gauze, Kerlix, and an Rajat bandage will be continued on a daily basis after cleansing and irrigation. Arrangements were previously made for the home delivery of dressing supplies. I wi ll see Ms. Norman again in two weeks. 2. Diabetes mellitus. The patient's Accu-Chek in clinic today is 289. The patient has been reminde d that for optimal wound healing, her blood glucoses should remain below 150. 3. Hypertension.
[2018-05-30] MEDS ORDERED: Lidocaine 2% Jelly 5 ML TUBE ONE (22:05)
[2018-05-30] MEDS ORDERED: Sodium Chloride 0.9% 15 ML NEB ONE (22:05)
== END 2018-05-30 15:35 | disposition home or self-care (01) ==
LOC: WCC 15:34
PROVIDERS: ATTEND Family Medicine
DX: E11.622 Type 2 diabetes mellitus with other skin ulcer (principal); L97.929 Non-pressure chronic ulcer of unspecified part of left lower leg with unspecified severity; I10 Essential (primary) hypertension
CPT/HCPCS: A4218

== ENCOUNTER 2018-06-15 15:29 | Outpatient (CLI) | payer BC ==
[~2018-06-15 15:29] MED LIST changes: -Lidocaine 2% Jelly 5 ML TUBE ONE
--- NOTE | 2018-06-15 17:22 | PRG ---
DATE OF SERVICE: 06/15/2018 HISTORY: Ms. Marielle Norman is a very pleasant 58-year-old who presents to the Wound Center for eval uation of multiple ulcerations of the left lower leg. The patient was previously seen in the Wound C enter in 11/2017 for an ulceration of the dorsum of the right third toe. The patient was admitted to [facility] on 01/15/2018 with cellulitis of the left lower leg. [facility] Ms[facility] Norman was seen in consultation by Infectious Diseases. The patient st ated that she received IV antibiotics through a PICC line which was inserted on 02/07/2018. Since patient's last visit to the Wound Center, Ms. Peralta has been performing dressing changes of Xerof orm gauze, Kerlix, and an Rajat bandage for her remaining left lower leg wound. PHYSICAL EXAMINATION: VITAL SIGNS: Temperature 97.6, pulse 104 respirations 22, blood pressure 169/82. Accu-Chek 396. EXTREMITIES: Only one wound of the left lower leg remains which measures approximately 1.0 x 4.3 cm. The dimensions of the wound at the time of the patient's visit on 05/30/2018 were approximately 5.2 x 1.5 cm. Granulation tissue is present within the wound margins. No purulent drainage is associat ed with the wound. No cellulitis of the left lower extremity is present. No maceration of the skin of the periwound is noted. No significant edema of the left foot or lower leg is present on exam tod ay. ASSESSMENT AND PLAN: 1. Ulceration of left lower leg as described above. The patient was discharged from [facility] on 01/31/2018 after admission for cellulitis of the left lower leg. Dressing bruce ges of Xeroform gauze, ABD, and an Rajat bandage will be continued on a daily basis after cleansing and irrigation. Arrangements were previously made for the home delivery of dressing supplies. I will s ee Ms. Norman again in 3 weeks. 2. Diabetes mellitus. The patient's Accu-Chek in clinic today is 396. The patient has been reminde d that for optimal wound healing, her blood glucoses should remain below 150. 3. Hypertension.
== END 2018-06-15 15:30 | disposition home or self-care (01) ==
LOC: WCC 15:29
PROVIDERS: ATTEND Family Medicine
DX: E11.622 Type 2 diabetes mellitus with other skin ulcer (principal); L97.829 Non-pressure chronic ulcer of other part of left lower leg with unspecified severity; I10 Essential (primary) hypertension
CPT/HCPCS: 36416; 97602; A4218

== ENCOUNTER 2018-07-06 15:33 | Outpatient (CLI) | payer BC ==
--- NOTE | 2018-07-06 17:18 | PRG ---
DATE OF SERVICE: 07/06/2018 HISTORY: Ms. Marielle Norman is a very pleasant 58-year-old who presents to the Wound Center for eval uation of multiple ulcerations of the left lower leg. The patient was previously seen in the Wound C enter in 11/2017 for an ulceration of the dorsum of the right third toe. The patient was admitted to [facility] on 01/15/2018 with cellulitis of the left lower leg. During the [facility]'s hospital stay, Ms. Norman was seen in consultation by Infectious Diseases. The patient st ated that she received IV antibiotics through a PICC line which was inserted on 02/07/2018. Since patient's last visit to the Wound Center, Ms. Norman has been performing dressing changes of Xero form gauze, Kerlix, and an Rajat bandage for the remaining left lower leg wound. OBJECTIVE: VITAL SIGNS: Temperature 98.4, pulse 101, respirations 21, blood pressure 170/81. Accu-Chek 328. EXTREMITIES: Only one wound of the left lower leg remains which measures approximately 2.4 x 0.4 cm. The dimensions of the wound at the time of the patient's last visit were approximately 1.0 x 4.3 cm . Granulation tissue is present within the wound margins. No purulent drainage is associated with t he wound. No cellulitis of the left lower extremity is present. No maceration of the skin of the pe riwound is noted. No significant edema of the left foot or lower leg is present on exam today. ASSESSMENT AND PLAN: 1. Ulceration of left lower leg as described above. The patient was discharged from [facility] on 01/31/2018 after admission for cellulitis of the left lower leg. Dressing bruce ges of Xeroform gauze, Kerlix, and an Rajat bandage will be continued on a daily basis after cleansing and irrigation. Arrangements were previously made for the home delivery of dressing supplies. I lazaro l see Ms. Norman again in two weeks. 2. Diabetes mellitus. The patient's Accu-Chek in clinic today is 328. The patient has been reminde d that for optimal wound healing, her blood glucoses should remain below 150. 3. Hypertension.
== END 2018-07-06 15:34 | disposition home or self-care (01) ==
LOC: WCC 15:33
PROVIDERS: ATTEND Family Medicine
DX: E11.622 Type 2 diabetes mellitus with other skin ulcer (principal); L97.929 Non-pressure chronic ulcer of unspecified part of left lower leg with unspecified severity; I10 Essential (primary) hypertension

== ENCOUNTER 2018-07-25 15:27 | Outpatient (CLI) | payer BC ==
[2018-07-25] MEDS ORDERED: Sodium Chloride 0.9% 15 ML NEB ONE (15:41)
--- NOTE | 2018-07-25 16:59 | PRG ---
DATE OF SERVICE: 07/25/2018 HISTORY: Ms. Marielle Norman is a very pleasant 58-year-old who presents to the Wound Center for eval uation of multiple ulcerations of the left lower leg. The patient was previously seen in the Wound C enter in 11/2017 for an ulceration of the dorsum of the right third toe. The patient was admitted to [facility] on 01/15/2018 with cellulitis of the left lower leg. [facility], Ms. Norman was seen in consultation by Infectious Diseases. The patient st ated that she received IV antibiotics through a PICC line which was inserted on 02/07/2018. The donald ent has been performing dressing changes of Xeroform gauze for the remaining left lower leg wound sin ce her last visit to the Wound Center. PHYSICAL EXAMINATION: VITAL SIGNS: Temperature 97.6, pulse 99, respirations 21, blood pressure 171/81, Accu-Chek 141. EXTREMITIES: Only one wound of the left lower leg remains which measures approximately 0.5 x 0.4 cm. The dimensions of the wound at the time of the patient's last visit were approximately 2.4 x 0.4 cm . Granulation tissue is present within the wound margins. No purulent drainage is associated with t he wound. No cellulitis of the left lower extremity is present. No maceration of the skin of the pe riwound is noted. No significant edema of the left foot or lower leg is present on exam today. ASSESSMENT AND PLAN: 1. Ulceration of left lower leg as described above. The patient was discharged from [facility] on 01/31/2018 after admission for cellulitis of the left lower leg. Dressing bruce ges of Xeroform gauze will be continued on a daily basis after cleansing and irrigation. Arrangement s were previously made for the home delivery of dressing supplies. I will see Ms. Norman again in two weeks if her wound is still present at this time. 2. Diabetes mellitus. The patient's Accu-Chek in clinic today is 141. The patient has been reminde d that for optimal wound healing, her blood glucoses should remain below 150. 3. Hypertension.
== END 2018-07-25 15:28 | disposition home or self-care (01) ==
LOC: WCC 15:27
PROVIDERS: ATTEND Family Medicine
DX: E11.622 Type 2 diabetes mellitus with other skin ulcer (principal); L97.929 Non-pressure chronic ulcer of unspecified part of left lower leg with unspecified severity; I10 Essential (primary) hypertension
CPT/HCPCS: 97602; A4218

== ENCOUNTER 2018-08-08 15:28 | Outpatient (CLI) | payer BC ==
--- NOTE | 2018-08-08 18:18 | PRG ---
DATE OF SERVICE: 08/08/2018 HISTORY: Ms. Marielle Norman is a very pleasant 58-year-old who presents to the Wound Center for eval uation of multiple ulcerations of the left lower leg. The patient was previously seen in the Wound C enter in 11/2017 for an ulceration of the dorsum of the right third toe. The patient was admitted to [facility] on 01/15/2018 with cellulitis of the left lower leg. During the [facility]'s hospital stay, Ms. Norman was seen in consultation by Infectious Diseases. The patient st ated that she received IV antibiotics through a PICC line which was inserted on 02/07/2018. Since patient's last visit to the Wound Center, Ms. Peralta has been performing dressing changes of Xerof orm gauze for her remaining left lower leg wound. PHYSICAL EXAMINATION: VITAL SIGNS: Temperature 97.4, pulse 91, respirations 18, blood pressure 143/73. Accu-Chek 221. EXTREMITIES: The remaining wound of the left lower leg has healed completely. No significant edema of the left foot or lower leg is present on exam today. ASSESSMENT AND PLAN: 1. Ulceration of left lower leg. As stated above, this wound has healed completely. Ms. Norman w ill be discharged from clinic today with followup on a p.r.n. basis. The patient has been reassured that she may discontinue all dressing changes. 2. Diabetes mellitus. The patient's Accu-Chek in clinic today is 221. 3. Hypertension.
== END 2018-08-08 15:29 | disposition home or self-care (01) ==
LOC: WCC 15:28
PROVIDERS: ATTEND Family Medicine
DX: E11.9 Type 2 diabetes mellitus without complications (principal); I10 Essential (primary) hypertension; Z87.2 Personal history of diseases of the skin and subcutaneous tissue
CPT/HCPCS: 97602; A4218

== ENCOUNTER 2018-09-12 13:44 | Outpatient (CLI) | payer BC ==
--- NOTE | 2018-09-12 14:10 | PRG ---
DATE OF SERVICE: 09/12/2018 HISTORY: Ms. Marielle Landon is a very pleasant 58-year-old who presents to the Wound Center for evalu ation of an ulceration of the left anterior abdominal wall. The patient states that the ulceration o f her left anterior abdominal wall is not in a region where she injects insulin subcutaneously. The patient states that the wound was opened and cultured previously. She states that she is now taking Augmentin and doxycycline which were prescribed for her at the time cultures of the wound were obtain ed. The patient states that the Cultures revealed the growth of Staphylococcus. The patient has no other complaints today. She denies any fever or chills. PHYSICAL EXAMINATION: VITAL SIGNS: Temperature 98.4, pulse 110, respirations 18, blood pressure 145/77. ABDOMEN: The ulceration over the left anterior abdominal wall measures approximately 1.4 x 1.7 cm. No purulent drainage is associated with the wound. No cellulitis of the left anterior abdominal wall is present. No maceration of the skin of the periwound is noted. ASSESSMENT AND PLAN: 1. Ulceration of left anterior abdominal wall. Dressing changes of Medihoney, 4 x 4s and bordered g auze will be initiated today. These dressing changes are to be performed on a daily basis after mich nsing and irrigation. The patient states that she will be performing her own dressing changes. I wi ll see Ms. Landon again in three weeks if her wound is still present at this time. The patient stat es that she will begin utilizing Bactroban nasal Hibiclens for bathing and an alcohol based hand sens itizing agent for a total of 2 weeks. 2. Diabetes mellitus. Accu-Cheks will be obtained at the time of the patient's clinic visits. The patient has been told that for optimal wound healing, her blood glucoses should remain below 150. 3. Hypertension.
[2018-09-12] MEDS ORDERED: Sodium Chloride 0.9% 15 ML NEB ONE (20:00)
== END 2018-09-12 13:45 | disposition home or self-care (01) ==
LOC: WCC 13:44
PROVIDERS: ATTEND Family Medicine
DX: L98.499 Non-pressure chronic ulcer of skin of other sites with unspecified severity (principal); E11.9 Type 2 diabetes mellitus without complications; I10 Essential (primary) hypertension
CPT/HCPCS: 97602; A4218

== ENCOUNTER 2018-10-03 15:39 | Outpatient (CLI) | payer BC ==
--- NOTE | 2018-10-03 19:25 | PRG ---
DATE OF SERVICE: 10/03/2018 HISTORY: Ms. Marielle Norman is a very pleasant 58-year-old who presents to the Wound Center for eval uation of an ulceration of the left anterior abdominal wall. The patient also has a wound of the lef t lower leg. For both wounds, the patient is performing dressing changes of the Medihoney. Ms. Ericka medina has no other complaints today. She denies any fever or chills. PHYSICAL EXAMINATION: VITAL SIGNS: Temperature 98.2, pulse 98, respirations 19, blood pressure 176/79. Accu-Chek 56. ABDOMEN: The ulceration over the left anterior abdominal wall measures approximately 1.0 x 0.7 cm. The ulceration over the left lower leg measures approximately 1.0 x 0.5 cm. No purulent drainage is associated with either wound. No erythema of the skin surrounding either wound is present. No macer ation of the skin of the periwound of either wound is noted. ASSESSMENT AND PLAN: 1. Ulceration of left anterior abdominal wall. The patient also has an ulceration of the left lower leg. Dressing changes of Medihoney will be continued on a daily basis after cleansing and irrigatio n. The patient states she will continue to perform her own dressing changes. I will see Ms. oRshan gallo again in three weeks if her wound is still present at this time. The patient states that she compl eted a course of Bactroban nasal prescribed at the time of the patient's last visit to the Wound Cent er on 09/12/2018. 2. Diabetes mellitus. The patient's Accu-Chek in clinic today is 56. The patient has been reminded that for optimal wound healing, her blood glucoses should remain below 150. 3. Hypertension.
== END 2018-10-03 15:40 | disposition home or self-care (01) ==
LOC: WCC 15:39
PROVIDERS: ATTEND Family Medicine
DX: E11.622 Type 2 diabetes mellitus with other skin ulcer (principal); L98.499 Non-pressure chronic ulcer of skin of other sites with unspecified severity; I10 Essential (primary) hypertension
CPT/HCPCS: 97602; A4218

== ENCOUNTER 2018-10-24 15:22 | Outpatient (CLI) | payer BC ==
--- NOTE | 2018-10-24 17:14 | PRG ---
DATE OF SERVICE: 10/24/2018 HISTORY: Ms. Corazon Norman is a very pleasant 58-year-old, who presents to the Wound Center for evaluation of an ulceration of the left anterior abdominal wall. The patient also has a wound of the left lower leg. For both wounds, the patient is performing dressing changes of Medihoney or Xeroform gauze. The patient has no other complaints today. She denies any fever or chills. PHYSICAL EXAMINATION: VITAL SIGNS: Temperature 98.1, pulse 95, respirations 19, blood pressure 137/70. Accu-Chek 500. ABDOMEN: The ulceration over the left anterior abdominal wall measures approximately 0.2 x 0.2 cm. EXTREMITIES: The ulceration over the left lower leg measures approximately 0.8 x 0.2 cm. No purulent drainage is associated with either wound. No erythema of the skin surrounding either wound is present. No laceration of the skin of the periwound of either wound is noted. ASSESSMENT AND PLAN: 1. Ulceration of left anterior abdominal wall. The patient also has an ulceration of the left lower leg. Dressing changes of Medihoney or Xeroform gauze will be continued on a daily basis after cleansing and irrigation. The patient states she will continue to perform her own dressing changes. Both wounds have almost healed completely and Ms. Norman will be discharged from clinic today with followup on a p.r.n. basis. The patient has been given another prescription for Bactroban nasal. 2. Diabetes mellitus. The patient's Accu-Chek in clinic today is 500. The patient has been reminded that for optimal wound healing her blood glucose should remain below 150. 3. Hypertension. Job ID: [id number]
== END 2018-10-24 15:23 | disposition home or self-care (01) ==
LOC: WCC 15:22
PROVIDERS: ATTEND Family Medicine
DX: E11.622 Type 2 diabetes mellitus with other skin ulcer (principal); L98.499 Non-pressure chronic ulcer of skin of other sites with unspecified severity; I10 Essential (primary) hypertension
CPT/HCPCS: A4218

== ENCOUNTER 2018-10-31 19:34 | Inpatient (IN) | payer BC ==
[2018-10-31 20:14] LABS: #Lymphocytes 1.5 thou/uL (1.20-3.40); #Monocytes 0.5 thou/uL (0.11-0.59); #Neutrophils 6.2 thou/uL (1.40-6.50); %Basophils 0.4 % (0.0-1.0); %Eosinophils 0.3 % (0.0-10.0); %Monocytes 5.8 % (0.0-10.0); %Neutrophils 75.5 % (42.0-75.0); Mean Corpuscular HGB CONC 32.7 g/dL (32.0-36.0); Mean Corpuscular Hemoglobin 29.5 pg (27.0-31.0); Mean Corpuscular Volume 90.5 fL (78.0-98.0); Mean Platelet Volume 8.4 fL (7.4-10.4); Platelet Count 275 thou/uL (130-400); RBC Distribution Width 14.2 % (11.5-14.5); Red Blood Cell (RBC) Count 4.73 mill/uL (4.20-5.40); White Blood Cell (WBC) Count 8.2 thou/uL (4.8-10.8)
[2018-10-31 20:14] LABS: Bilirubin Negative (Negative); Blood, Urine Negative (Negative); Clarity CLEAR (Clear); Glucose, Urine (Dipstick) >=1000 mg/dL (Negative); Leukocyte Negative (Negative); Nitrite Negative (Negative); Protein, Urine (Dipstick) Negative (Neg-Trace); Specific Gravity, Urine 1.034 (1.002-1.036); Urobilinogen 0.2 mg/dL (0.2-1.0)
[2018-10-31] MEDS ORDERED: Ondansetron PF 4 MG/2 ML Vial ONE (20:24)
[2018-10-31] MEDS ORDERED: Morphine 4 MG/ML VIAL ONE ×2 (20:24→21:14)
[2018-10-31] MEDS ORDERED: Ondansetron ODT 4 MG TAB ONE (20:24)
[2018-10-31 20:34] LABS: ALT (SGPT) 28 U/L (8-55); AST (SGOT) 16 U/L (5-34); Albumin 3.9 g/dL (3.5-5.0); Alkaline Phosphatase 101 U/L (40-150); Anion Gap 21 mmol/L (10-20); BUN (Urea Nitrogen) 17 mg/dL (9.8-20.1); Bilirubin, Total 0.5 mg/dL (0.2-1.2); Calc. Creatinine Clearance 0 mL/min (70-130); Calcium 9.7 mg/dL (7.8-10.44); Carbon Dioxide 21 mmol/L (22-29); Chloride 96 mmol/L (98-107); Estimated GFR-MDRD 36; Globulin 3.5 g/dL (2.4-3.5); Potassium 4.5 mmol/L (3.5-5.1); Protein, Total 7.4 g/dL (6.0-8.3); Sodium 133 mmol/L (136-145)
[2018-10-31 20:38] LABS: Glucose 935 mg/dL (70-105)
[2018-10-31 20:59] LABS: Osmolality, Serum 339 mOsm/kg (280-295)
--- NOTE | 2018-10-31 21:06 | RAD ---
SINGLE VIEW OF THE CHEST: Comparison: 01-15-18 History: Tripped and fell on concrete with chest pain. FINDINGS: Single view of the chest shows a normal sized cardiomediastinal silhouette. There is no evidence of c onsolidation, mass, or pleural effusion. Degenerative changes are seen in the spine. Cholecystectomy clips are seen. IMPRESSION: No evidence of acute cardiopulmonary disease. POS: [facility]
--- NOTE | 2018-10-31 21:07 | RAD ---
THREE VIEWS RIGHT SHOULDER: History: Trip and fall. Landed on right shoulder with right shoulder pain. FINDINGS: Three views of the right shoulder shows a fracture of the right humeral neck. No dislocation of the s houlder is seen. Surrounding soft tissue swelling is present. IMPRESSION: Right humeral neck fracture. POS: [facility]
--- NOTE | 2018-10-31 21:08 | RAD ---
FOUR VIEWS LEFT KNEE: Comparison: None. History: Fall with right arm and left leg pain. FINDINGS: Four views of the left knee shows no evidence of acute fracture or dislocation. Mild degenerative kavon nges are seen. No knee effusion is present. Vascular calcifications are present. IMPRESSION: Mild left knee osteoarthritis without acute osseous abnormality. POS: [facility]
--- NOTE | 2018-10-31 21:09 | RAD ---
TWO VIEWS RIGHT HUMERUS: Comparison: None. History: Fall with right arm pain. FINDINGS: Two views of the right humerus shows a fracture of the right humeral neck. Surrounding soft tissue sw elling is seen. IMPRESSION: Right humeral neck fracture. POS: [facility]
--- NOTE | 2018-10-31 21:18 | CT ---
CT BRAIN WITHOUT CONTRAST: Comparison: None. History: Mechanical fall with head trauma. Right arm and shoulder pain. Technique: Multiple contiguous axial images were obtained in a CT of the brain without contrast. FINDINGS: The brain is normal in morphology and attenuation without focal lesions or confluent areas of infarct ion. There is no evidence of hydrocephalus, intracranial hemorrhage, or extraaxial fluid collections. The calvarium and overlying soft tissues are unremarkable. Fluid is seen in the left maxillary sinus. The mastoid air cells are well aerated. IMPRESSION: NO evidence of acute intracranial abnormality. POS: [facility]
[2018-10-31] MEDS ORDERED: Insulin Regular 100 units/100 ml in NS IVPB SCH (21:30)
[2018-10-31 21:41] LABS: Base Excess-Venous 1.8 mmol/L (0 (+/- 2.5)); Bicarbonate (HCO3v) 27.9 mmol/L (22.0-29.0); Calcium, Ionized 1.18 mmol/L (1.12-1.32); Hemoglobin - Calc 15.4 g/dL (12.0-18.0); Potassium 4.5 mmol/L (3.4-4.7); T. Carbon Dioxide 29.4 mmol/L (1.0-85.0); pH (Venous) 7.373 (7.35-7.45); vO2 Saturation-calc 68.4 % (94-98)
[2018-10-31] MEDS ORDERED: Insulin Regular 300 UNITS/3 ML VIAL ONE (21:47)
[2018-10-31] MEDS ORDERED: Senokot S 8.6-50 MG TAB PO PRN (22:28)
[2018-10-31] MEDS ORDERED: Acetaminophen 325 MG TAB PO PRN (22:28)
[2018-10-31] MEDS ORDERED: Sodium Chloride 0.9% 1,000 ML IV SCH (22:45)
[2018-11-01] MEDS ORDERED: HYDROcodone/Acetaminophen 10/325 mg Tablet ONE (00:08)
[2018-11-01 00:57] LABS: Anion Gap 17 mmol/L (10-20); BUN (Urea Nitrogen) 13 mg/dL (9.8-20.1); Calc. Creatinine Clearance 0 mL/min (70-130); Calcium 9.2 mg/dL (7.8-10.44); Carbon Dioxide 24 mmol/L (22-29); Chloride 106 mmol/L (98-107); Estimated GFR-MDRD 66; Glucose 447 mg/dL (70-105); Potassium 3.7 mmol/L (3.5-5.1); Sodium 143 mmol/L (136-145)
--- NOTE | 2018-11-01 01:07 | HP ---
CHIEF COMPLAINT: Fall. HISTORY OF PRESENT ILLNESS: The patient is a 58-year-old female with a past medical history of diabetes and hypertension, who presented to the hospital after a fall. The patient stated that she was at her family [employer] where she tripped over a concrete and fell on the right side of her body. She denies hitting her head, but she state that she did hit her right side of her face. The patient also in the ER was found to have significantly elevated blood sugar. Her sugars were in the 900s at this time. Upon asking the patient, patient states that she drank three normal [employer] products yesterday and today she had a slushy before going to voodoo. The patient did not check her sugars yesterday or today, and today she did not even take her insulin. The patient stated that she just in the holiday spirit wanted to enjoy the moment. She denies any fevers or chills, any problems urinating, any chest pain or shortness of breath, any nausea, vomiting, or diarrhea. PAST MEDICAL HISTORY: As of the following; 1. She has a history of diabetes, is on insulin. 2. Hypertension. PAST SURGICAL HISTORY: 1. She has had a cholecystectomy. 2. Ventral hernia repair. 3. Right needle localization with breast biopsies. MEDICATIONS: This is per the last discharge summary, which was earlier this year. Her medications are as of the following; 1. Aspirin 81 mg daily. 2. Vitamin D3 of 2000 units daily. 3. Citalopram 40 mg daily. 4. Glucotrol 10 mg daily. 5. [place] 5/325, 1-2 tabs q.4-6 hours p.r.n. 6. Motrin 200 mg q.6 hours p.r.n. 7. Levemir 25 units b.i.d. 8. Metformin 1000 mg b.i.d. 9. Pravachol 80 mg daily. 10. Effexor 75 mg b.i.d. REVIEW OF SYSTEMS: All negative except for the ones mentioned above in the HPI. ALLERGIES: SHE IS ALLERGIC TO LOSARTAN AND BACTRIM. SOCIAL HISTORY: She is negative for tobacco; sometimes occasional alcohol use. No drug use. She is a full code and lives alone. FAMILY HISTORY: Significant for diabetes, her father and maternal grandmother both had diagnosis of diabetes. Family history is also positive for coronary artery disease. PHYSICAL EXAMINATION: VITAL SIGNS: Temperature of 98.3, respirations 16, saturation 94% on room air, pulse 90, blood pressure 150/71. GENERAL: She is awake, alert, and oriented x3. Does not appear in any distress. CV: S1, S2 present. No murmurs, rubs, or gallops. LUNGS: Clear to auscultation. No rhonchi or wheezes noted. ABDOMEN: Soft and nontender. Bowel sounds are present x2. No hepatomegaly or splenomegaly noted. HEENT: No facial lacerations are noted and no lymphadenopathy noted. EXTREMITIES: She does have some scraping of her left knee. She does have chronic redness around her left lower extremity. Pedal pulses are present bilaterally. Her right arm is in a sling. Pedal pulses are present. She does have some pain upon palpation around that area. NEUROLOGIC: Neurovascular sanders, no focal deficits noted. She is able to move all 4 extremities. Sensation is present bilaterally upper and bilaterally lower. SKIN: As I mentioned, she does have some scraping on her left knee and also some mild redness on her left knee. LABORATORY RESULTS: As of the following; WBC of 8.3, hemoglobin of 14.0, hematocrit of 42.8, platelets of 275. Chemistry; sodium of 133, potassium of 4.5, BUN of 17, creatinine of 1.48. Her glucose was 935. Her beta-hydroxybutyric acid was 0.36. Her urine only indicated glucose. There were no ketones in the urine. Her bicarb was 21 and anion gap was 21. She also had a CT of her right humerus, which indicated a right humeral neck fracture. Also, she had a CT head, which was normal. She also had a CT shoulder, which indicated just a right humeral neck fracture. Also, she had a knee x-ray, which said mild left knee osteoarthritis without any acute osseous abnormalities, and her chest x-ray that was done indicated no evidence of acute cardiopulmonary disease. ASSESSMENT AND PLAN: The patient is a very pleasant 58-year-old female who comes in for a fall. 1. Hyperosmolar hyperglycemia state versus diabetic ketoacidosis. Per labs, the patient's serum osmolality was very high. Also, she has some mild acidosis, nothing significant. Urine does not show any ketones. This most likely is hyperosmolar hyperglycemia state. The patient is still on the insulin drip. She got 2 L in the ER, but we will give another additional liter since she appears to be very significantly dehydrated, and we will do a diabetic ketoacidosis protocol, insulin for now. We will also recheck labs in a few hours and continue to monitor. We will keep patient n.p.o. for now. The patient states that she did not take her insulin today and she has been drinking regular Cokes and also had a slushy today. 2. Mechanical fall. Patient stated that she fell. She does have a right humeral neck fracture. The patient's right arm is in a sling and Orthopedic has been consulted for this patient. She has good pedal pulses that are also present. 3. Hypertension. We will continue her home medications. 4. Mild acute kidney injury. Her baseline creatinine is 0.68. This most likely is prerenal. We will hold her metformin. Any medication that is causing worsening of creatinine, we will hold for now. 5. Deep venous thrombosis prophylaxis. We will put the patient on some subcu heparin and continue to monitor. Job ID: [id number]
[2018-11-01 01:30] VITALS: BMI 41.1
[2018-11-01] MEDS: NS 0.9% w/ 20 MEQ KCL 1,000 ML IV SCH ×2 (01:50)
[2018-11-01] MEDS ORDERED: Morphine 4 MG/ML VIAL ONE (03:53)
[2018-11-01] MEDS: 1/2 NS w/KCL 20 mEq 1,000 ML IV SCH ×3 (04:02→19:18)
[2018-11-01 05:14] LABS: #Basophils 0.1 thou/uL (0.0-0.2); #Lymphocytes 1.9 thou/uL (1.20-3.40); #Monocytes 0.7 thou/uL (0.11-0.59); %Basophils 0.5 % (0.0-1.0); %Eosinophils 0.1 % (0.0-10.0); %Lymphocytes 17.9 % (21.0-51.0); %Monocytes 6.1 % (0.0-10.0); %Neutrophils 75.3 % (42.0-75.0); Mean Corpuscular HGB CONC 33.6 g/dL (32.0-36.0); Mean Corpuscular Hemoglobin 29.7 pg (27.0-31.0); Mean Corpuscular Volume 88.5 fL (78.0-98.0); Mean Platelet Volume 7.9 fL (7.4-10.4); Platelet Count 211 thou/uL (130-400); RBC Distribution Width 14.3 % (11.5-14.5); Red Blood Cell (RBC) Count 4.39 mill/uL (4.20-5.40); White Blood Cell (WBC) Count 10.6 thou/uL (4.8-10.8)
[2018-11-01] MEDS: HYDROcodone/Acetaminophen 7.5/325 mg Tablet PO PRN ×4 (05:24→20:23)
[2018-11-01 05:32] LABS: Anion Gap 13 mmol/L (10-20); BUN (Urea Nitrogen) 11 mg/dL (9.8-20.1); Calc. Creatinine Clearance 154 mL/min (70-130); Calcium 8.4 mg/dL (7.8-10.44); Carbon Dioxide 25 mmol/L (22-29); Chloride 110 mmol/L (98-107); Estimated GFR-MDRD 83; Glucose 274 mg/dL (70-105); Potassium 4.1 mmol/L (3.5-5.1); Sodium 144 mmol/L (136-145)
[2018-11-01] MEDS ORDERED: Dextrose 50% Abboject 50 ML SYRINGE SLOW IVP PRN (07:54)
[2018-11-01] MEDS ORDERED: HumaLOG 300 UNITS/3 ML VIAL SC PRN (07:54)
[2018-11-01] MEDS ORDERED: Dextrose 5% in Water 1,000 ML IV PRN (07:54)
[2018-11-01] MEDS ORDERED: ALPRAZolam 0.5 MG TAB PO PRN (07:55)
[2018-11-01] MEDS: Insulin Regular 300 UNITS/3 ML VIAL SC SCH ×3 (08:35→21:44)
[2018-11-01] MEDS: Heparin 5,000 UNITS/ML VIAL SC SCH ×3 (08:35→20:24)
[2018-11-01] MEDS: Amlodipine 5 MG TAB PO SCH (08:36)
[2018-11-01] MEDS ORDERED: Non-Formulary Item 1 EACH (Cholecalciferol (Vitamin D3) [Vitamin D3] 2,000 UNIT) PO SCH (09:00)
[2018-11-01] MEDS ORDERED: INSULIN REGULAR HUMAN 60 UNIT SQ SCH (09:00)
[2018-11-01] MEDS: traMADol HCl 50 MG TAB PO PRN ×2 (09:12→18:13)
--- NOTE | 2018-11-01 11:06 | PDOC.EVN ---
Event Note - Event Note Event Note: Pt seen and examined. Chartreviewd feels betterbutstill w lots of pain in fracturedrightarm no N/V.no dizziness CTA B/L RRR AAOX3 Labs show improved blood sugar& acidosis. Will restart home insulin and stop insulin drip in o1 hour. HD stable Start diet Waiting ortho eval.sling in place OK to transfer medical
[2018-11-01] MEDS: HumaLOG 300 UNITS/3 ML VIAL SC PRN (11:21)
--- NOTE | 2018-11-01 13:14 | CON ---
DATE OF CONSULTATION: 11/01/2018 HISTORY OF PRESENT ILLNESS: Ms. Norman is a 58-year-old right-handed white female, who fell at a family [employer] when she tripped over concrete and fell on the right side of her body. The patient was brought to the emergency room. X-rays of the right shoulder shows a mildly displaced surgical neck fracture of the right proximal humerus. The patient was placed in arm sling. She has no neurologic complaints in the right upper extremity. No other complaints elsewhere. PAST MEDICAL HISTORY: Medical illnesses; insulin-dependent diabetes mellitus and hypertension. PAST SURGICAL HISTORY: Cholecystectomy and ventral hernia repair. CURRENT MEDICATIONS: 1. Aspirin. 2. Vitamin D3. 3. Citalopram. 4. Glucotrol. 5. [place]. 6. Motrin. 7. Levemir. 8. Metformin. 9. Pravachol. 10. Effexor. 11. Insulin. ALLERGIES: LOSARTAN AND BACTRIM. PHYSICAL EXAMINATION: EXTREMITIES: The patient has point tenderness over the right proximal arm region in the shoulder. Skin is in good condition. The right upper extremity is neurovascularly intact. DIAGNOSTIC DATA: X-rays of the right shoulder show a mildly displaced transverse fracture of the surgical neck of the right proximal humerus. PLAN: The patient will not require surgery at this time. The small amount of displacement would not warrant surgery. Plan on continue with the arm sling. The patient needs to avoid any activities with the right upper extremity and allow the fracture to heal. She will follow up in my office in 2 weeks. Job ID: [id number]
[2018-11-01] MEDS ORDERED: Insulin Regular 300 UNITS/3 ML VIAL SC SCH (16:45)
[2018-11-01] MEDS ORDERED: Venlafaxine HCl XR 150 MG CAP PO SCH (21:00)
[2018-11-01] MEDS ORDERED: Non-Formulary Item 1 EACH (Atorvastatin Calcium [Lipitor] 80 MG) PO SCH (21:00)
[2018-11-01] MEDS ORDERED: Citalopram 20 MG TAB PO SCH (21:00)
[2018-11-01] MEDS ORDERED: Atorvastatin Calcium 40 MG TAB PO SCH (21:00)
[2018-11-02] MEDS: HYDROcodone/Acetaminophen 7.5/325 mg Tablet PO PRN ×3 (01:10→10:17)
[2018-11-02] MEDS: traMADol HCl 50 MG TAB PO PRN (04:29)
[2018-11-02] MEDS: HumaLOG 300 UNITS/3 ML VIAL SC PRN ×3 (05:57→11:56)
[2018-11-02] MEDS ORDERED: Ibuprofen 200 MG TAB PO PRN (07:47)
[2018-11-02] MEDS ORDERED: metFORMIN 500 MG TAB PO SCH (08:00)
[2018-11-02] MEDS ORDERED: Non-Formulary Item 1 EACH (Metformin Hcl [Metformin Hcl] 1,000 MG) PO SCH (08:00)
[2018-11-02] MEDS: Heparin 5,000 UNITS/ML VIAL SC SCH (08:48)
[2018-11-02] MEDS: Amlodipine 5 MG TAB PO SCH (08:48)
[2018-11-02 09:32] LABS: Anion Gap 13 mmol/L (10-20); BUN (Urea Nitrogen) 12 mg/dL (9.8-20.1); Calc. Creatinine Clearance 165 mL/min (70-130); Calcium 8.6 mg/dL (7.8-10.44); Carbon Dioxide 25 mmol/L (22-29); Chloride 102 mmol/L (98-107); Estimated GFR-MDRD 90; Glucose 253 mg/dL (70-105); Potassium 3.9 mmol/L (3.5-5.1); Sodium 136 mmol/L (136-145)
[2018-11-02] MEDS: Insulin Regular 300 UNITS/3 ML VIAL SC SCH (10:14)
[2018-11-02 11:52] VITALS: BP 139/77; TEMP 98.3
--- NOTE | 2018-11-02 13:30 | DIS ---
DATE OF ADMISSION: 10/31/2018 DATE OF DISCHARGE: 11/02/2018 DISCHARGE DISPOSITION: To home. PRIMARY DISCHARGE DIAGNOSES: Right humeral neck fracture, diabetes mellitus type 2 uncontrolled, hypertension, dyslipidemia, and obesity. PROCEDURES DONE DURING HOSPITALIZATION: CT brain done showed no acute intracranial abnormality. Chest x-ray done showed no acute cardiopulmonary abnormality. Four view left knee x-ray done showed mild left knee osteoarthritis without acute osseous abnormality. Humerus two view right x-ray done showed right humeral neck fracture. Right shoulder three views done showed right humeral neck fracture. H and H of 13 and 38, platelet count 211, MCV is 88, BUN 12, creatinine 0.6. Initial serum glucose on admission was 935. Beta-hydroxybutyrate was 0.36. DISCHARGE MEDICATIONS: 1. Metformin 1000 mg p.o. twice daily. 2. Humulin R 60 units subcu three times daily. 3. Vitamin D3 2000 units p.o. daily. 4. Lipitor 80 mg p.o. at bedtime. 5. Aspirin 81 mg p.o. daily. 6. Norvasc 5 mg p.o. daily. 7. Alprazolam p.r.n. for anxiety. 8. Toprol-XL 50 mg p.o. daily. 9. Venlafaxine extended release 150 mg p.o. at bedtime. 10. [place] p.r.n. for pain. 11. Motrin p.r.n. for pain. ALLERGIES: ALLERGIC TO LOSARTAN AND BACTRIM. INPATIENT CONSULT: Dr. Singh for Orthopedic Surgery. DISCHARGE PLAN: The patient to follow up with Dr. Singh in 2 weeks and primary care physician in 1 week. BRIEF COURSE DURING HOSPITALIZATION: The patient initially came to the emergency room after she had a fall. She apparently tripped over a concrete and fell onto the right side of her body. She had trauma protocol x-rays done, which revealed right humerus surgical neck fracture. Per Dr. Singh, orthopedic surgeon, who evaluated the patient, the patient had mild displacement and was placed in a sling. She needs to follow up with Dr. Singh in 2 weeks. Also, the patient's initial serum sugar was more than 900. This rapidly reduced with her discharge serum sugars of 253. Her last four Accu-Chek readings are between 173 and 266. The patient has remained hemodynamically stable. She is right-handed person and is having difficulty to mobilize and use her left upper extremity. In view of this, Home Health will be arranged. Case Management consultation has been requested for the same. Once this was arranged and the patient arranges for help at home, she will be discharged home. She is otherwise hemodynamically stable. Please note, I have seen and examined the patient on the day of discharge. Job ID: [id number]
== END 2018-11-02 14:24 | disposition home health service (06) | DRG 638 ==
LOC: ERS 19:34 → IMCU/EMU 22:00 → T4-B 11-01 13:21
PROVIDERS: ADMIT Internal Medicine; ATTEND Internal Medicine
DX: E11.00 Type 2 diabetes mellitus with hyperosmolarity without nonketotic hyperglycemic-hyperosmolar coma (NKHHC) (principal); S42.211A Unspecified displaced fracture of surgical neck of right humerus, initial encounter for closed fracture; N17.9 Acute kidney failure, unspecified; Z68.41 Body mass index [BMI] 40.0-44.9, adult; I10 Essential (primary) hypertension; E78.5 Hyperlipidemia, unspecified; E66.9 Obesity, unspecified; W01.0XXA Fall on same level from slipping, tripping and stumbling without subsequent striking against object, initial encounter; Y92.89 Other specified places as the place of occurrence of the external cause; Z79.82 Long term (current) use of aspirin; Z79.4 Long term (current) use of insulin; Z88.2 Allergy status to sulfonamides; Z88.8 Allergy status to other drugs, medicaments and biological substances
CPT/HCPCS: 36415; 36416; 70450; 71045; 80048; 80053; 81003; 82010; 82330; 82550; 82803; 83930; 85025; 93005; 96361; 96365; 96366; 96375; 96376; G8978-GP-CJ; G8979-GP-CH; J1644; J1815; J2270; J2405; J7050; Q0162

== ENCOUNTER 2018-11-03 04:07 | Emergency (ER) | payer BC ==
[2018-11-03] MEDS ORDERED: Ketorolac Tromethamine 30 MG/ML VIAL ONE (06:19)
[2018-11-03] MEDS ORDERED: Morphine 4 MG/ML VIAL ONE (06:19)
--- NOTE | 2018-11-03 08:13 | RAD ---
RIGHT HUMERUS 2 VIEWS: HISTORY: Fall. Pain. COMPARISON: 10/31/2018. FINDINGS: Redemonstration of a proximal humerus fracture. No significant change in alignment. No additional f ractures are appreciated. IMPRESSION: Redemonstration of proximal humerus fracture. POS: [facility]
[2018-11-03] MEDS ORDERED: HYDROcodone/Acetaminophen 10/325 mg Tablet ONE (08:43)
--- NOTE | 2018-11-03 08:45 | RAD ---
RIGHT WRIST 3 VIEWS: Date: 11/03/18 HISTORY: Fall. Right wrist injury. FINDINGS: Scaphoid waist and ulnar styloid are intact. Degenerative changes most pronounced at the lateral aspe ct of the distal carpal row. Mild ulna negative variant. Small dystrophic calcification over the tria ngular fibrocartilaginous complex. No acute fracture or dislocation. IMPRESSION: Degenerative changes of the wrist. No acute osseous abnormalities are demonstrated. POS: [facility]
--- NOTE | 2018-11-03 08:55 | RAD ---
AP PELVIS ONE VIEW: History: Fall. Pelvic pain. FINDINGS: Sacral ala and pelvic rings are intact. Mild degenerative changes of the hips. No displaced fractures are apparent. IMPRESSION: No significant abnormalities demonstrated. POS: [facility]
--- NOTE | 2018-11-03 09:01 | RAD ---
CHEST 1 VIEW: Date: 11/03/18 HISTORY: Pain. Fall. COMPARISON: 10/31/18. FINDINGS: Normal cardiac silhouette. Lungs and pleural spaces are clear. No pneumothorax. Proximal right humeru s fracture. IMPRESSION: 1. Proximal right humerus fracture. 2. No acute cardiopulmonary process. POS: [facility]
[2018-11-03 09:31] LABS: #Eosinphils 0.1 thou/uL (0.0-0.7); #Lymphocytes 1.4 thou/uL (1.20-3.40); #Monocytes 0.7 thou/uL (0.11-0.59); %Basophils 0.1 % (0.0-1.0); %Eosinophils 0.6 % (0.0-10.0); %Lymphocytes 13.4 % (21.0-51.0); %Monocytes 6.6 % (0.0-10.0); %Neutrophils 79.3 % (42.0-75.0); Hemoglobin 13.8 g/dL (12.0-16.0); Mean Corpuscular HGB CONC 33.1 g/dL (32.0-36.0); Mean Corpuscular Hemoglobin 28.9 pg (27.0-31.0); Mean Corpuscular Volume 87.4 fL (78.0-98.0); Mean Platelet Volume 7.6 fL (7.4-10.4); Platelet Count 207 thou/uL (130-400); Red Blood Cell (RBC) Count 4.77 mill/uL (4.20-5.40); White Blood Cell (WBC) Count 10.1 thou/uL (4.8-10.8)
[2018-11-03 09:53] LABS: ALT (SGPT) 28 U/L (8-55); AST (SGOT) 20 U/L (5-34); Albumin 3.5 g/dL (3.5-5.0); Alkaline Phosphatase 91 U/L (40-150); Anion Gap 18 mmol/L (10-20); BUN (Urea Nitrogen) 12 mg/dL (9.8-20.1); Bilirubin, Total 0.7 mg/dL (0.2-1.2); Calc. Creatinine Clearance 0 mL/min (70-130); Calcium 9.1 mg/dL (7.8-10.44); Carbon Dioxide 20 mmol/L (22-29); Chloride 102 mmol/L (98-107); Estimated GFR-MDRD 83; Globulin 3.6 g/dL (2.4-3.5); Glucose 315 mg/dL (70-105); Lipase 16 U/L (8-78); Magnesium 2.1 mg/dL (1.6-2.6); Potassium 4.3 mmol/L (3.5-5.1); Protein, Total 7.1 g/dL (6.0-8.3); Sodium 136 mmol/L (136-145)
[2018-11-03 10:21] LABS: Bilirubin Negative (Negative); Blood, Urine Negative (Negative); Clarity CLEAR (Clear); Glucose, Urine (Dipstick) >=1000 mg/dL (Negative); Leukocyte Negative (Negative); Nitrite Negative (Negative); Protein, Urine (Dipstick) Negative (Neg-Trace); Specific Gravity, Urine 1.029 (1.002-1.036); Urobilinogen 0.2 mg/dL (0.2-1.0)
== END 2018-11-03 12:36 | disposition home or self-care (01) ==
LOC: ERS 04:07
DX: M25.521 Pain in right elbow (principal); M25.531 Pain in right wrist; S42.201D Unspecified fracture of upper end of right humerus, subsequent encounter for fracture with routine healing; S30.0XXD Contusion of lower back and pelvis, subsequent encounter; E11.9 Type 2 diabetes mellitus without complications; E66.9 Obesity, unspecified; E78.00 Pure hypercholesterolemia, unspecified; Z79.4 Long term (current) use of insulin; F32.9 Major depressive disorder, single episode, unspecified; Z79.82 Long term (current) use of aspirin; Z79.899 Other long term (current) drug therapy; W19.XXXA Unspecified fall, initial encounter
CPT/HCPCS: 36415; 71045; 72170; 80053; 81003; 83690; 83735; 85025; 96372; J1885; J2270

== ENCOUNTER 2019-12-14 07:23 | Day surgery (SDC) | payer BC ==
[2019-12-13 12:14] VITALS: BMI 42.3
[~2019-12-14 07:23] MED LIST changes: +Fentanyl 100 MCG/2 ML VIAL ONE; +Fluorouracil 100 MG, Enoxaparin Sodium 25 MG, EPINEPHrine 0.3 MG, Dextrose 50% 3 ML in ... IRR SCH; +Midazolam HCl 2 mg/2 ml Vial ONE; -Sodium Chloride 0.9% 15 ML NEB ONE
[2019-12-14] MEDS ORDERED: Cyclopentolate 1% Opth Drop 2 ML BOT ONE (07:45)
[2019-12-14] MEDS ORDERED: Phenylephrine 2.5% Ophth Soln 5 ML BOT ONE (07:45)
[2019-12-14] MEDS ORDERED: Insulin Regular 300 UNITS/3 ML VIAL ONE (08:12)
--- NOTE | 2019-12-14 10:36 | OP ---
DATE OF PROCEDURE: 12/14/2019 PREOPERATIVE DIAGNOSES: Epiretinal membrane and vitreomacular traction, right eye. POSTOPERATIVE DIAGNOSES: Epiretinal membrane and vitreomacular traction, right eye. PROCEDURES PERFORMED: Pars plana vitrectomy and membrane peel, right eye. ANESTHESIA: Local with monitored anesthesia care. PROCEDURE IN DETAIL: The patient was identified in the preoperative holding area. Appropriate informed consent for the planned surgical procedure on the right eye had been obtained. The patient was transported to the operative suite. Appropriate cardiopulmonary monitoring was established. Anesthesia was obtained using retrobulbar modified [place] Lint lid block using 50:50 mixture of 4% lidocaine and 0.75% bupivacaine. The patient was prepped and draped in the usual sterile manner for ophthalmic surgery on the right eye. Lid speculum was placed in the right eye. A 25-gauge trocar was placed in the conjunctiva and sclera supratemporally, inferotemporally, and supranasally. Infusion line was placed inferotemporally. Light pipe and vitreous cutter were inserted into the eye. Core vitrectomy was performed. Posterior hyaloid face was elevated and peeled across the macula, especially in the inferior temporal area where there was some rigidly adherent vitreomacular traction. This was peeled without complication into the periphery. No further epiretinal membranes were identified. Indirect ophthalmoscopy was used to exam the retina 360 degrees. No holes, breaks, or tears were identified. Trocars were removed. The eye was noted to retain pressure well. Retrobulbar Kenalog and subconjunctival Ancef were placed. Antiobitic ointment was placed. Eye was patched and shielded. The patient was taken to postoperative recovery unit in good condition, having suffered no immediate perioperative complications. The patient was instructed to keep patch and shield on, avoid lifting or bending, followup appointment with Dr. Potts. Job ID: [id number]
[2019-12-14] MEDS ORDERED: Bupivacaine PF 0.75% SDV 10 ML ONE (11:25)
[2019-12-14] MEDS ORDERED: Lidocaine 1% PF 5 ML VIAL ONE (11:25)
[2019-12-14] MEDS ORDERED: Maxitrol 0.1% Opth Oint 3.5 GM TUBE ONE (11:25)
[2019-12-14] MEDS ORDERED: CEFAZOLIN 1 GM VIAL ONE (11:25)
[2019-12-14] MEDS ORDERED: Enoxaparin Sodium 30 MG/0.3 ML SYRINGE ONE (11:25)
[2019-12-14] MEDS ORDERED: Triamcinolone 40 MG/ML VIAL ONE (11:25)
[2019-12-14] MEDS ORDERED: PROPOFOL 200 MG/20 ML VIAL ONE (11:25)
[2019-12-14] MEDS ORDERED: Lidocaine 4% PF 5 ML AMP ONE (11:25)
[2019-12-14] MEDS ORDERED: Dextrose 50% Abboject 50 ML SYRINGE ONE (11:27)
== END 2019-12-14 11:35 | disposition home or self-care (01) ==
LOC: SDC 07:23
PROVIDERS: ATTEND Ophthalmology Retina Specialist
PROC: 08NE3ZZ Release Right Retina, Percutaneous Approach (ICD-10-PCS; principal; 2019-12-14)
PROC: 08T43ZZ Resection of Right Vitreous, Percutaneous Approach (ICD-10-PCS; principal; 2019-12-14)
DX: H35.371 Puckering of macula, right eye (principal); H43.821 Vitreomacular adhesion, right eye; I10 Essential (primary) hypertension; E11.9 Type 2 diabetes mellitus without complications; Z79.4 Long term (current) use of insulin; Z79.82 Long term (current) use of aspirin; Z79.899 Other long term (current) drug therapy; Z88.2 Allergy status to sulfonamides; Z88.8 Allergy status to other drugs, medicaments and biological substances
CPT/HCPCS: 36416; J0171; J0690; J1650; J1815; J2001; J2250; J2704; J3010; J3301; J3490; J9190

== ENCOUNTER 2021-01-07 16:12 | Inpatient (IN) | payer BC ==
[2021-01-07] MEDS ORDERED: Dextrose 50% Abboject 50 ML SYRINGE ONE ×2 (16:41→19:20)
[2021-01-07 17:14] LABS: Hemoglobin 15.5 g/dL (12.0-16.0); Mean Corpuscular HGB CONC 32.2 g/dL (32.0-36.0); Mean Corpuscular Hemoglobin 28.9 pg (27.0-31.0); Mean Corpuscular Volume 89.6 fL (78.0-98.0); Mean Platelet Volume 8.2 fL (7.4-10.4); Platelet Count 265 thou/uL (130-400); Red Blood Cell (RBC) Count 5.37 mill/uL (4.20-5.40); White Blood Cell (WBC) Count 21.9 thou/uL (4.8-10.8)
[2021-01-07 17:30] LABS: Band 13 % (5-11); Lymphocytes 10 % (21-51); MDiff Complete? YES; Monocytes 7 % (0-10); Neutrophil 64 % (42-75); Platelet Morphology Comment Appears Adequate; RBC Morphology Normal; Reactive Lymphocytes 6 % (0-10)
[2021-01-07 17:32] LABS: PTT 29.9 sec (22.9-36.1); Prothrombin Time 13.4 sec (12.0-14.7)
[2021-01-07 17:34] LABS: ALT (SGPT) 20 U/L (8-55); AST (SGOT) 27 U/L (5-34); Albumin 3.7 g/dL (3.4-4.8); Alkaline Phosphatase 95 U/L (40-110); Anion Gap 19 mmol/L (10-20); BUN (Urea Nitrogen) 33 mg/dL (9.8-20.1); Bilirubin, Total 0.4 mg/dL (0.2-1.2); Calc. Creatinine Clearance 0 mL/min (70-130); Calcium 8.5 mg/dL (7.8-10.44); Carbon Dioxide 20 mmol/L (23-31); Chloride 101 mmol/L (98-107); Globulin 3.4 g/dL (2.4-3.5); Glucose 116 mg/dL (80-115); Potassium 4.7 mmol/L (3.5-5.1); Protein, Total 7.1 g/dL (5.8-8.1); Sodium 135 mmol/L (136-145)
[2021-01-07] MEDS ORDERED: Piperacillin/Tazobactam 4.5 GM VIAL ONE (17:36)
[2021-01-07 18:39] LABS: Bacteria/HPF 4+ HPF (None Seen); Bilirubin Negative (Negative); Blood, Urine Negative (Negative); Clarity Clear (Clear); Glucose, Urine (Dipstick) 70 mg/dL (Negative); Ketone, Urine Negative (Negative); Leukocyte Negative Leu/uL (Negative); Nitrite 2+ (Negative); Protein, Urine (Dipstick) 20 mg/dL (Neg-Trace); RBC/HPF None Seen HPF (0-3); Specific Gravity, Urine 1.025 (1.002-1.036); Urobilinogen Normal mg/dL (Less than 2); WBC/HPF 0-3 HPF (0-3)
[2021-01-07] MEDS ORDERED: Vancomycin 1 GM/200 ML BAG ONE (18:52)
[2021-01-07 21:07] LABS: Lactic Acid 3.7 mmol/L (0.5-2.2)
[2021-01-07] MEDS ORDERED: Dextrose 50% Abboject 50 ML SYRINGE SLOW IVP PRN (21:29)
[2021-01-07] MEDS ORDERED: Dextrose 5% in Water 1,000 ML IV PRN (21:29)
[2021-01-07] MEDS ORDERED: Calcium Carbonate 500 MG ChewTAB PO PRN (21:29)
[2021-01-07] MEDS ORDERED: Ondansetron ODT 4 MG TAB PO PRN (21:29)
[2021-01-07] MEDS ORDERED: Dextrose 10% in Water 1,000 ML IV SCH (21:30)
[2021-01-07 23:04] LABS: SARS-CoV-2 NAA Rapid Test Not Detected (NotDetected)
[2021-01-08] MEDS: Piperacillin/Tazobactam 4.5 GM in Sodium Chloride 0.9% 100 ML IVPB SCH ×4 (01:50→17:43)
[2021-01-08] MEDS ORDERED: Dextrose 10% in Water 1,000 ML IV SCH (02:00)
[2021-01-08] MEDS ORDERED: Vancomycin HCl 1.5 GM in Sodium Chloride 0.9% 250 ML 300 ML IVPB SCH (03:00)
[2021-01-08] MEDS: Acetaminophen 325 MG TAB PO PRN ×2 (03:45→16:10)
[2021-01-08] MEDS: Vancomycin 1.5 GRAM/300 ML BAG 1.5 GM in Premix Bag 1 BAG IVPB SCH ×2 (03:47→14:19)
[2021-01-08 04:02] LABS: #Eosinphils 0.1 thou/uL (0.0-0.7); #Lymphocytes 1.9 thou/uL (1.20-3.40); #Monocytes 0.9 thou/uL (0.11-0.59); #Neutrophils 11.7 thou/uL (1.40-6.50); %Basophils 0.2 % (0.0-1.0); %Eosinophils 0.9 % (0.0-10.0); %Lymphocytes 12.8 % (21.0-51.0); %Neutrophils 80.1 % (42.0-75.0); Hemoglobin 14.3 g/dL (12.0-16.0); Mean Corpuscular HGB CONC 32.3 g/dL (32.0-36.0); Mean Corpuscular Hemoglobin 29.4 pg (27.0-31.0); Mean Corpuscular Volume 91.2 fL (78.0-98.0); Mean Platelet Volume 8.3 fL (7.4-10.4); Platelet Count 205 thou/uL (130-400); RBC Distribution Width 14.1 % (11.5-14.5); Red Blood Cell (RBC) Count 4.86 mill/uL (4.20-5.40); White Blood Cell (WBC) Count 14.6 thou/uL (4.8-10.8)
[2021-01-08 04:27] LABS: Calcium 7.8 mg/dL (7.8-10.44); Chloride 104 mmol/L (98-107); Sodium 134 mmol/L (136-145)
[2021-01-08 04:28] LABS: Glucose 102 mg/dL (80-115); Hemoglobin A1c 7.7 % (4.0-6.0)
[2021-01-08 04:30] LABS: Carbon Dioxide 16 mmol/L (23-31)
[2021-01-08 04:31] LABS: Calc. Creatinine Clearance 172 mL/min (70-130)
[2021-01-08 04:32] LABS: BUN (Urea Nitrogen) 21 mg/dL (9.8-20.1)
[2021-01-08 05:27] LABS: Anion Gap 18 mmol/L (10-20)
[2021-01-08] MEDS: Enoxaparin Sodium 40 MG/0.4 ML SYRINGE SC SCH (08:34)
[2021-01-08] MEDS ORDERED: FLU VACC QS2020-21(6MOS UP)/PF 60 MCG/0.5 ML SYRINGE IM ONE (09:00)
[2021-01-08] MEDS: Lactated Ringer's 1,000 ML IV SCH ×2 (09:01→17:44)
[2021-01-08 11:46] VITALS: BMI 40.0
[2021-01-08] MEDS: HumaLOG 300 UNITS/3 ML VIAL SC PRN ×3 (12:09→20:39)
[2021-01-08] MEDS: Ibuprofen 200 MG TAB PO PRN (20:31)
[2021-01-08] MEDS: Venlafaxine HCl XR 150 MG CAP PO SCH (20:32)
[2021-01-08] MEDS ORDERED: Cyclobenzaprine 10 MG TAB PO SCH (23:00)
[2021-01-09] MEDS: Piperacillin/Tazobactam 4.5 GM in Sodium Chloride 0.9% 100 ML IVPB SCH ×5 (00:18→23:37)
[2021-01-09] MEDS: Enoxaparin Sodium 40 MG/0.4 ML SYRINGE SC SCH (08:00)
[2021-01-09] MEDS: buPROPion 75 MG TAB PO SCH (08:00)
[2021-01-09] MEDS ORDERED: Insulin Glargine 20 UNITS in Pre-Filled Syringe 1 EACH SC SCH (09:00)
[2021-01-09] MEDS: Saccharomyces boulardii 250 MG CAP PO SCH (09:44)
[2021-01-09] MEDS: Polyethylene Glycol 3350 17 GM Packet PO SCH (09:44)
[2021-01-09] MEDS: Aspirin Chewable 81 MG TAB PO SCH (09:45)
[2021-01-09] MEDS: Docusate 100 MG CAP PO SCH (09:45)
[2021-01-09 10:04] LABS: #Eosinphils 0.2 thou/uL (0.0-0.7); #Lymphocytes 1.9 thou/uL (1.20-3.40); #Monocytes 0.6 thou/uL (0.11-0.59); %Basophils 0.2 % (0.0-1.0); %Eosinophils 1.9 % (0.0-10.0); %Lymphocytes 21.7 % (21.0-51.0); %Monocytes 6.5 % (0.0-10.0); %Neutrophils 69.7 % (42.0-75.0); Hemoglobin 13.7 g/dL (12.0-16.0); Mean Corpuscular HGB CONC 32.9 g/dL (32.0-36.0); Mean Corpuscular Hemoglobin 29.6 pg (27.0-31.0); Mean Corpuscular Volume 89.9 fL (78.0-98.0); Mean Platelet Volume 9.2 fL (7.4-10.4); Platelet Count 131 thou/uL (130-400); RBC Distribution Width 14.1 % (11.5-14.5); Red Blood Cell (RBC) Count 4.64 mill/uL (4.20-5.40); White Blood Cell (WBC) Count 8.6 thou/uL (4.8-10.8)
[2021-01-09 10:09] LABS: ALT (SGPT) 16 U/L (8-55); AST (SGOT) 20 U/L (5-34); Albumin 3.3 g/dL (3.4-4.8); Alkaline Phosphatase 82 U/L (40-110); Anion Gap 16 mmol/L (10-20); BUN (Urea Nitrogen) 10 mg/dL (9.8-20.1); Bilirubin, Total 0.6 mg/dL (0.2-1.2); Calc. Creatinine Clearance 125 mL/min (70-130); Calcium 8.7 mg/dL (7.8-10.44); Carbon Dioxide 22 mmol/L (23-31); Chloride 105 mmol/L (98-107); Globulin 3.1 g/dL (2.4-3.5); Glucose 335 mg/dL (80-115); Potassium 4.7 mmol/L (3.5-5.1); Protein, Total 6.4 g/dL (5.8-8.1); Sodium 138 mmol/L (136-145)
[2021-01-09] MEDS: Cyclobenzaprine 10 MG TAB PO PRN ×2 (12:44→23:37)
[2021-01-09] MEDS: HumaLOG 300 UNITS/3 ML VIAL SC PRN ×2 (12:46→17:39)
[2021-01-09] MEDS: metFORMIN 500 MG TAB PO SCH (17:39)
[2021-01-09] MEDS: Ibuprofen 200 MG TAB PO PRN (17:42)
[2021-01-09] MEDS: Venlafaxine HCl XR 150 MG CAP PO SCH (21:16)
[2021-01-09] MEDS: Atorvastatin Calcium 40 MG TAB PO SCH (21:16)
[2021-01-10] MEDS: Piperacillin/Tazobactam 4.5 GM in Sodium Chloride 0.9% 100 ML IVPB SCH (05:26)
[2021-01-10] MEDS: HumaLOG 300 UNITS/3 ML VIAL SC PRN ×3 (05:41→21:47)
[2021-01-10 06:15] LABS: #Eosinphils 0.1 thou/uL (0.0-0.7); #Lymphocytes 2.1 thou/uL (1.20-3.40); #Monocytes 0.7 thou/uL (0.11-0.59); #Neutrophils 4.6 thou/uL (1.40-6.50); %Basophils 0.6 % (0.0-1.0); %Eosinophils 1.6 % (0.0-10.0); %Lymphocytes 27.4 % (21.0-51.0); %Monocytes 8.7 % (0.0-10.0); %Neutrophils 61.7 % (42.0-75.0); Hemoglobin 14.2 g/dL (12.0-16.0); Mean Corpuscular Hemoglobin 30.6 pg (27.0-31.0); Mean Corpuscular Volume 90.1 fL (78.0-98.0); Mean Platelet Volume 7.9 fL (7.4-10.4); Platelet Count 157 thou/uL (130-400); Red Blood Cell (RBC) Count 4.63 mill/uL (4.20-5.40); White Blood Cell (WBC) Count 7.5 thou/uL (4.8-10.8)
[2021-01-10 06:41] LABS: ALT (SGPT) 16 U/L (8-55); AST (SGOT) 11 U/L (5-34); Albumin 3.5 g/dL (3.4-4.8); Alkaline Phosphatase 80 U/L (40-110); Anion Gap 16 mmol/L (10-20); BUN (Urea Nitrogen) 9 mg/dL (9.8-20.1); Bilirubin, Total 0.5 mg/dL (0.2-1.2); Calc. Creatinine Clearance 159 mL/min (70-130); Calcium 8.8 mg/dL (7.8-10.44); Carbon Dioxide 21 mmol/L (23-31); Chloride 105 mmol/L (98-107); Globulin 3.1 g/dL (2.4-3.5); Glucose 181 mg/dL (80-115); Protein, Total 6.6 g/dL (5.8-8.1); Sodium 138 mmol/L (136-145)
[2021-01-10] MEDS ORDERED: Insulin Glargine 28 UNITS in Pre-Filled Syringe 1 EACH SC SCH (09:00)
[2021-01-10] MEDS ORDERED: Insulin Glargine 25 UNITS in Pre-Filled Syringe 1 EACH SC SCH (09:00)
[2021-01-10] MEDS: metFORMIN 500 MG TAB PO SCH ×2 (09:07→17:03)
[2021-01-10] MEDS: buPROPion 75 MG TAB PO SCH (09:07)
[2021-01-10] MEDS: Amlodipine 5 MG TAB PO SCH (09:07)
[2021-01-10] MEDS: Polyethylene Glycol 3350 17 GM Packet PO SCH (09:09)
[2021-01-10] MEDS: Saccharomyces boulardii 250 MG CAP PO SCH (09:09)
[2021-01-10] MEDS: Docusate 100 MG CAP PO SCH (09:09)
[2021-01-10] MEDS: Aspirin Chewable 81 MG TAB PO SCH (09:09)
[2021-01-10] MEDS: Enoxaparin Sodium 40 MG/0.4 ML SYRINGE SC SCH (09:10)
[2021-01-10] MEDS ORDERED: Senokot 8.6 MG TAB PO PRN (13:20)
[2021-01-10] MEDS: Cyclobenzaprine 10 MG TAB PO PRN (16:59)
[2021-01-10] MEDS ORDERED: Ciprofloxacin 500 MG TAB PO SCH (20:00)
[2021-01-10] MEDS: Atorvastatin Calcium 40 MG TAB PO SCH (20:35)
[2021-01-10] MEDS: Venlafaxine HCl XR 150 MG CAP PO SCH (20:35)
[2021-01-10] MEDS: Cefdinir 300 MG CAP PO SCH (20:35)
[2021-01-10] MEDS: Acetaminophen 325 MG TAB PO PRN (20:38)
[2021-01-11 06:11] LABS: #Eosinphils 0.2 thou/uL (0.0-0.7); #Lymphocytes 2.2 thou/uL (1.20-3.40); #Monocytes 0.5 thou/uL (0.11-0.59); #Neutrophils 5.4 thou/uL (1.40-6.50); %Basophils 0.5 % (0.0-1.0); %Eosinophils 1.9 % (0.0-10.0); %Lymphocytes 26.6 % (21.0-51.0); %Monocytes 6.3 % (0.0-10.0); %Neutrophils 64.7 % (42.0-75.0); Hemoglobin 14.7 g/dL (12.0-16.0); Mean Corpuscular HGB CONC 33.7 g/dL (32.0-36.0); Mean Platelet Volume 7.9 fL (7.4-10.4); Platelet Count 167 thou/uL (130-400); RBC Distribution Width 13.9 % (11.5-14.5); Red Blood Cell (RBC) Count 4.88 mill/uL (4.20-5.40); White Blood Cell (WBC) Count 8.3 thou/uL (4.8-10.8)
[2021-01-11 06:38] LABS: ALT (SGPT) 17 U/L (8-55); AST (SGOT) 11 U/L (5-34); Albumin 3.7 g/dL (3.4-4.8); Alkaline Phosphatase 82 U/L (40-110); Anion Gap 15 mmol/L (10-20); BUN (Urea Nitrogen) 12 mg/dL (9.8-20.1); Bilirubin, Total 0.5 mg/dL (0.2-1.2); Calc. Creatinine Clearance 167 mL/min (70-130); Carbon Dioxide 26 mmol/L (23-31); Chloride 104 mmol/L (98-107); Globulin 3.1 g/dL (2.4-3.5); Glucose 131 mg/dL (80-115); Potassium 3.5 mmol/L (3.5-5.1); Protein, Total 6.8 g/dL (5.8-8.1); Sodium 141 mmol/L (136-145)
[2021-01-11] MEDS: Aspirin Chewable 81 MG TAB PO SCH (08:57)
[2021-01-11] MEDS: metFORMIN 500 MG TAB PO SCH ×2 (08:57→16:31)
[2021-01-11] MEDS: buPROPion 75 MG TAB PO SCH (08:58)
[2021-01-11] MEDS: Saccharomyces boulardii 250 MG CAP PO SCH (08:58)
[2021-01-11] MEDS: Docusate 100 MG CAP PO SCH (08:58)
[2021-01-11] MEDS: Cefdinir 300 MG CAP PO SCH ×2 (08:58→21:21)
[2021-01-11] MEDS: Amlodipine 5 MG TAB PO SCH (08:59)
[2021-01-11] MEDS: Polyethylene Glycol 3350 17 GM Packet PO SCH (09:00)
[2021-01-11] MEDS: Enoxaparin Sodium 40 MG/0.4 ML SYRINGE SC SCH (09:00)
[2021-01-11] MEDS: Insulin Glargine 30 UNITS in Pre-Filled Syringe 1 EACH SC SCH (09:58)
[2021-01-11] MEDS: Cyclobenzaprine 10 MG TAB PO PRN (18:28)
[2021-01-11] MEDS: Venlafaxine HCl XR 150 MG CAP PO SCH (21:21)
[2021-01-11] MEDS: Atorvastatin Calcium 40 MG TAB PO SCH (21:21)
[2021-01-12 05:48] LABS: #Basophils 0.1 thou/uL (0.0-0.2); #Eosinphils 0.2 thou/uL (0.0-0.7); #Lymphocytes 2.8 thou/uL (1.20-3.40); #Monocytes 0.6 thou/uL (0.11-0.59); %Basophils 0.7 % (0.0-1.0); %Eosinophils 1.6 % (0.0-10.0); %Monocytes 6.1 % (0.0-10.0); %Neutrophils 62.6 % (42.0-75.0); Hemoglobin 14.2 g/dL (12.0-16.0); Mean Corpuscular HGB CONC 33.8 g/dL (32.0-36.0); Mean Corpuscular Hemoglobin 30.4 pg (27.0-31.0); Mean Platelet Volume 7.8 fL (7.4-10.4); Platelet Count 173 thou/uL (130-400); Red Blood Cell (RBC) Count 4.66 mill/uL (4.20-5.40); White Blood Cell (WBC) Count 9.5 thou/uL (4.8-10.8)
[2021-01-12 05:59] LABS: ALT (SGPT) 12 U/L (8-55); AST (SGOT) 14 U/L (5-34); Albumin 3.5 g/dL (3.4-4.8); Alkaline Phosphatase 77 U/L (40-110); Anion Gap 16 mmol/L (10-20); BUN (Urea Nitrogen) 17 mg/dL (9.8-20.1); Bilirubin, Total 0.4 mg/dL (0.2-1.2); Calc. Creatinine Clearance 161 mL/min (70-130); Calcium 8.6 mg/dL (7.8-10.44); Carbon Dioxide 22 mmol/L (23-31); Chloride 104 mmol/L (98-107); Globulin 3.2 g/dL (2.4-3.5); Glucose 145 mg/dL (80-115); Potassium 4.1 mmol/L (3.5-5.1); Protein, Total 6.7 g/dL (5.8-8.1); Sodium 138 mmol/L (136-145)
[2021-01-12] MEDS: metFORMIN 500 MG TAB PO SCH ×2 (08:47→17:12)
[2021-01-12] MEDS: buPROPion 75 MG TAB PO SCH (08:48)
[2021-01-12] MEDS: Enoxaparin Sodium 40 MG/0.4 ML SYRINGE SC SCH (08:48)
[2021-01-12] MEDS: Amlodipine 5 MG TAB PO SCH (08:48)
[2021-01-12] MEDS: Aspirin Chewable 81 MG TAB PO SCH (08:48)
[2021-01-12] MEDS: Cefdinir 300 MG CAP PO SCH ×2 (08:51→21:28)
[2021-01-12] MEDS: Docusate 100 MG CAP PO SCH (08:51)
[2021-01-12] MEDS: Polyethylene Glycol 3350 17 GM Packet PO SCH (08:52)
[2021-01-12] MEDS: Saccharomyces boulardii 250 MG CAP PO SCH (08:52)
[2021-01-12] MEDS: Insulin Glargine 30 UNITS in Pre-Filled Syringe 1 EACH SC SCH (09:37)
[2021-01-12] MEDS: Cyclobenzaprine 10 MG TAB PO PRN (12:15)
[2021-01-12] MEDS: Atorvastatin Calcium 40 MG TAB PO SCH (21:28)
[2021-01-12] MEDS: Venlafaxine HCl XR 150 MG CAP PO SCH (21:28)
[2021-01-13] MEDS: metFORMIN 500 MG TAB PO SCH ×2 (08:37→18:30)
[2021-01-13] MEDS: Amlodipine 5 MG TAB PO SCH (08:37)
[2021-01-13] MEDS: Saccharomyces boulardii 250 MG CAP PO SCH (08:45)
[2021-01-13] MEDS: Aspirin Chewable 81 MG TAB PO SCH (08:45)
[2021-01-13] MEDS: Cefdinir 300 MG CAP PO SCH (08:45)
[2021-01-13] MEDS: buPROPion 75 MG TAB PO SCH (08:45)
[2021-01-13] MEDS: Docusate 100 MG CAP PO SCH (08:45)
[2021-01-13] MEDS: Enoxaparin Sodium 40 MG/0.4 ML SYRINGE SC SCH (08:46)
[2021-01-13] MEDS: Polyethylene Glycol 3350 17 GM Packet PO SCH (08:46)
[2021-01-13] MEDS: Cyclobenzaprine 10 MG TAB PO PRN ×2 (08:58→19:28)
[2021-01-13] MEDS: Insulin Glargine 30 UNITS in Pre-Filled Syringe 1 EACH SC SCH (10:27)
[2021-01-13] MEDS: Venlafaxine HCl XR 150 MG CAP PO SCH (19:28)
[2021-01-13] MEDS: Atorvastatin Calcium 40 MG TAB PO SCH (19:28)
[2021-01-14] MEDS: metFORMIN 500 MG TAB PO SCH ×2 (08:14→16:48)
[2021-01-14] MEDS: Amlodipine 5 MG TAB PO SCH (08:14)
[2021-01-14] MEDS: Aspirin Chewable 81 MG TAB PO SCH (08:15)
[2021-01-14] MEDS: Docusate 100 MG CAP PO SCH (08:15)
[2021-01-14] MEDS: Saccharomyces boulardii 250 MG CAP PO SCH (08:15)
[2021-01-14] MEDS: Cyclobenzaprine 10 MG TAB PO PRN ×2 (08:15→21:36)
[2021-01-14] MEDS: buPROPion 75 MG TAB PO SCH (08:15)
[2021-01-14] MEDS: Enoxaparin Sodium 40 MG/0.4 ML SYRINGE SC SCH (08:16)
[2021-01-14] MEDS: Polyethylene Glycol 3350 17 GM Packet PO SCH (08:16)
[2021-01-14] MEDS: Insulin Glargine 30 UNITS in Pre-Filled Syringe 1 EACH SC SCH (10:20)
[2021-01-14] MEDS: Atorvastatin Calcium 40 MG TAB PO SCH (20:43)
[2021-01-14] MEDS: Venlafaxine HCl XR 150 MG CAP PO SCH (20:43)
[2021-01-15] MEDS: Insulin Glargine 30 UNITS in Pre-Filled Syringe 1 EACH SC SCH (08:37)
[2021-01-15] MEDS: Cyclobenzaprine 10 MG TAB PO PRN (08:37)
[2021-01-15] MEDS: Aspirin Chewable 81 MG TAB PO SCH (08:38)
[2021-01-15] MEDS: Saccharomyces boulardii 250 MG CAP PO SCH (08:38)
[2021-01-15] MEDS: buPROPion 75 MG TAB PO SCH (08:38)
[2021-01-15] MEDS: metFORMIN 500 MG TAB PO SCH ×2 (08:38→17:04)
[2021-01-15] MEDS: Docusate 100 MG CAP PO SCH (08:39)
[2021-01-15] MEDS: Amlodipine 5 MG TAB PO SCH (08:39)
[2021-01-15] MEDS: Enoxaparin Sodium 40 MG/0.4 ML SYRINGE SC SCH (08:40)
[2021-01-15] MEDS: Polyethylene Glycol 3350 17 GM Packet PO SCH (08:40)
[2021-01-15] MEDS ORDERED: INSULIN GLARGINE SC SCH (10:15)
[2021-01-15] MEDS ORDERED: PRE FILLED SC SCH (10:15)
[2021-01-15] MEDS: Venlafaxine HCl XR 150 MG CAP PO SCH (20:16)
[2021-01-15] MEDS: Atorvastatin Calcium 40 MG TAB PO SCH (20:16)
[2021-01-16] MEDS: Cyclobenzaprine 10 MG TAB PO PRN ×4 (01:37→21:52)
[2021-01-16] MEDS: Polyethylene Glycol 3350 17 GM Packet PO SCH (08:05)
[2021-01-16] MEDS: Enoxaparin Sodium 40 MG/0.4 ML SYRINGE SC SCH (08:32)
[2021-01-16] MEDS: Aspirin Chewable 81 MG TAB PO SCH (08:33)
[2021-01-16] MEDS: Amlodipine 5 MG TAB PO SCH (08:33)
[2021-01-16] MEDS: buPROPion 75 MG TAB PO SCH (08:33)
[2021-01-16] MEDS: metFORMIN 500 MG TAB PO SCH ×2 (08:34→16:33)
[2021-01-16] MEDS: Saccharomyces boulardii 250 MG CAP PO SCH (08:35)
[2021-01-16] MEDS: Docusate 100 MG CAP PO SCH (08:35)
[2021-01-16] MEDS: Insulin Glargine 32 UNITS in Pre-Filled Syringe 1 EACH SC SCH (08:53)
[2021-01-16] MEDS: HumaLOG 300 UNITS/3 ML VIAL SC PRN (11:55)
[2021-01-16] MEDS: Atorvastatin Calcium 40 MG TAB PO SCH (20:14)
[2021-01-16] MEDS: Venlafaxine HCl XR 150 MG CAP PO SCH (20:14)
[2021-01-16] MEDS: Acetaminophen 325 MG TAB PO PRN (20:14)
[2021-01-17] MEDS: Cyclobenzaprine 10 MG TAB PO PRN ×2 (05:44→17:14)
[2021-01-17] MEDS: Amlodipine 5 MG TAB PO SCH (08:40)
[2021-01-17] MEDS: metFORMIN 500 MG TAB PO SCH ×2 (08:40→17:14)
[2021-01-17] MEDS: Aspirin Chewable 81 MG TAB PO SCH (08:41)
[2021-01-17] MEDS: Saccharomyces boulardii 250 MG CAP PO SCH (08:41)
[2021-01-17] MEDS: Polyethylene Glycol 3350 17 GM Packet PO SCH (08:41)
[2021-01-17] MEDS: Docusate 100 MG CAP PO SCH (08:41)
[2021-01-17] MEDS: buPROPion 75 MG TAB PO SCH (08:41)
[2021-01-17] MEDS: Enoxaparin Sodium 40 MG/0.4 ML SYRINGE SC SCH (08:42)
[2021-01-17] MEDS: Insulin Glargine 32 UNITS in Pre-Filled Syringe 1 EACH SC SCH (08:42)
[2021-01-17] MEDS ORDERED: INSULIN GLARGINE SC SCH (09:30)
[2021-01-17] MEDS ORDERED: Insulin Glargine 4 UNITS in Pre-Filled Syringe 1 EACH SC SCH (09:30)
[2021-01-17] MEDS ORDERED: PRE FILLED SC SCH (09:30)
[2021-01-17] MEDS: HumaLOG 300 UNITS/3 ML VIAL SC PRN ×2 (11:52→17:14)
[2021-01-17] MEDS: Atorvastatin Calcium 40 MG TAB PO SCH (20:14)
[2021-01-17] MEDS: Venlafaxine HCl XR 150 MG CAP PO SCH (20:14)
[2021-01-18] MEDS: Cyclobenzaprine 10 MG TAB PO PRN ×2 (05:29→16:25)
[2021-01-18] MEDS: Docusate 100 MG CAP PO SCH (08:51)
[2021-01-18] MEDS: metFORMIN 500 MG TAB PO SCH ×2 (08:51→16:26)
[2021-01-18] MEDS: Aspirin Chewable 81 MG TAB PO SCH (08:51)
[2021-01-18] MEDS: buPROPion 75 MG TAB PO SCH (08:51)
[2021-01-18] MEDS: Saccharomyces boulardii 250 MG CAP PO SCH (08:51)
[2021-01-18] MEDS: Amlodipine 5 MG TAB PO SCH (08:51)
[2021-01-18] MEDS: Polyethylene Glycol 3350 17 GM Packet PO SCH (08:52)
[2021-01-18] MEDS: Enoxaparin Sodium 40 MG/0.4 ML SYRINGE SC SCH (08:52)
[2021-01-18] MEDS ORDERED: Lidocaine 5% Patch TD PRN (10:07)
[2021-01-18] MEDS: Insulin Glargine 34 UNITS in Pre-Filled Syringe 1 EACH SC SCH (10:17)
[2021-01-18] MEDS: HumaLOG 300 UNITS/3 ML VIAL SC PRN ×2 (17:40→20:04)
[2021-01-18] MEDS: Atorvastatin Calcium 40 MG TAB PO SCH (20:03)
[2021-01-18] MEDS: Venlafaxine HCl XR 150 MG CAP PO SCH (20:03)
[2021-01-19] MEDS: Polyethylene Glycol 3350 17 GM Packet PO SCH (09:00)
[2021-01-19] MEDS: buPROPion 75 MG TAB PO SCH (09:01)
[2021-01-19] MEDS: Saccharomyces boulardii 250 MG CAP PO SCH (09:01)
[2021-01-19] MEDS: metFORMIN 500 MG TAB PO SCH (09:01)
[2021-01-19] MEDS: Amlodipine 5 MG TAB PO SCH (09:01)
[2021-01-19] MEDS: Aspirin Chewable 81 MG TAB PO SCH (09:01)
[2021-01-19] MEDS: Insulin Glargine 34 UNITS in Pre-Filled Syringe 1 EACH SC SCH (09:02)
[2021-01-19] MEDS: Docusate 100 MG CAP PO SCH (09:02)
[2021-01-19] MEDS: Enoxaparin Sodium 40 MG/0.4 ML SYRINGE SC SCH (09:02)
[2021-01-19 09:14] VITALS: TEMP 97.9
[2021-01-19] MEDS ORDERED: Insulin Glargine 6 UNITS in Pre-Filled Syringe 1 EACH SC SCH (09:30)
[2021-01-19] MEDS: HumaLOG 300 UNITS/3 ML VIAL SC PRN (13:08)
[2021-01-19 13:38] VITALS: BP 120/79
[2021-01-20] MEDS ORDERED: Insulin Glargine 40 UNITS in Pre-Filled Syringe 1 EACH SC SCH (09:00)
== END 2021-01-19 15:02 | DRG 872 ==
LOC: ERS 16:12 → IMCU/EMU 18:35 → T4-A 01-08 16:17
PROVIDERS: ADMIT Student in an Organized Health Care Education/Training Program; ATTEND Student in an Organized Health Care Education/Training Program
DX: A41.9 Sepsis, unspecified organism (principal); S32.10XA Unspecified fracture of sacrum, initial encounter for closed fracture; Z68.41 Body mass index [BMI] 40.0-44.9, adult; E87.2 Acidosis; N12 Tubulo-interstitial nephritis, not specified as acute or chronic; Z20.822 Contact with and (suspected) exposure to COVID-19; E78.00 Pure hypercholesterolemia, unspecified; F32.9 Major depressive disorder, single episode, unspecified; E78.5 Hyperlipidemia, unspecified; I10 Essential (primary) hypertension; E11.649 Type 2 diabetes mellitus with hypoglycemia without coma; T68.XXXA Hypothermia, initial encounter; E66.9 Obesity, unspecified; W19.XXXA Unspecified fall, initial encounter; Z90.49 Acquired absence of other specified parts of digestive tract; Z89.439 Acquired absence of unspecified foot; Z89.431 Acquired absence of right foot; Z88.1 Allergy status to other antibiotic agents; Z88.2 Allergy status to sulfonamides; Z88.8 Allergy status to other drugs, medicaments and biological substances; Z79.899 Other long term (current) drug therapy; Z79.82 Long term (current) use of aspirin; Z79.4 Long term (current) use of insulin; Z82.49 Family history of ischemic heart disease and other diseases of the circulatory system; Z87.891 Personal history of nicotine dependence
CPT/HCPCS: 36415; 36416; 51701; 70450; 71045; 72131; 80048; 80053; 81003; 81015; 83036; 83605; 84145; 85025; 85610; 85730; 87040; 87077; 87086; 87186; 93005; 96365; 96366; 96367; 96368; 96375; 96376; J1650; J1815; J2543; J3370; J3490; U0002

== ENCOUNTER 2021-10-15 20:52 | Inpatient (IN) | payer BC ==
[2021-10-15] MEDS ORDERED: Ondansetron PF 4 MG/2 ML Vial ONE ×3 (21:23→22:32)
[2021-10-15 21:47] LABS: #Eosinphils 0.1 thou/uL (0.0-0.7); #Lymphocytes 1.2 thou/uL (1.20-3.40); #Monocytes 0.4 thou/uL (0.11-0.59); #Neutrophils 9.4 thou/uL (1.40-6.50); %Basophils 0.2 % (0.0-1.0); %Eosinophils 0.5 % (0.0-10.0); %Lymphocytes 11.1 % (21.0-51.0); %Monocytes 3.1 % (0.0-10.0); %Neutrophils 85.1 % (42.0-75.0); Hemoglobin 16.1 g/dL (12.0-16.0); Mean Corpuscular HGB CONC 32.2 g/dL (32.0-36.0); Mean Corpuscular Hemoglobin 29.3 pg (27.0-31.0); Mean Platelet Volume 7.6 fL (7.4-10.4); Platelet Count 227 thou/uL (130-400); RBC Distribution Width 13.7 % (11.5-14.5); Red Blood Cell (RBC) Count 5.51 mill/uL (4.20-5.40); White Blood Cell (WBC) Count 11.1 thou/uL (4.8-10.8)
[2021-10-15] MEDS ORDERED: SUGAMMADEX SODIUM 200 MG/2 ML VIAL ONE (21:51)
[2021-10-15] MEDS ORDERED: Fentanyl 100 MCG/2 ML VIAL ONE (21:51)
[2021-10-15] MEDS ORDERED: Heparin 10,000 UNITS/ 10 ML VIAL ONE (21:54)
[2021-10-15] MEDS ORDERED: Lidocaine 1% w/Epinephrine 1:100K 20 ML VIAL ONE (21:54)
[2021-10-15 21:56] LABS: PTT 23.4 sec (22.9-36.1); Prothrombin Time 12.9 sec (12.0-14.7)
[2021-10-15 22:02] LABS: ALT (SGPT) 22 U/L (8-55); AST (SGOT) 18 U/L (5-34); Albumin 3.7 g/dL (3.4-4.8); Alkaline Phosphatase 75 U/L (40-110); Anion Gap 17 mmol/L (10-20); BUN (Urea Nitrogen) 17 mg/dL (9.8-20.1); Bilirubin, Total 0.6 mg/dL (0.2-1.2); CK (CPK) 46 U/L (29-168); Calc. Creatinine Clearance 0 mL/min (70-130); Calcium 8.5 mg/dL (7.8-10.44); Carbon Dioxide 23 mmol/L (23-31); Chloride 101 mmol/L (98-107); Globulin 2.9 g/dL (2.4-3.5); Glucose 258 mg/dL (80-115); Potassium 4.3 mmol/L (3.5-5.1); Protein, Total 6.6 g/dL (5.8-8.1); Sodium 137 mmol/L (136-145)
[2021-10-15] MEDS ORDERED: Rocuronium Bromide 10 MG/ML (10ML VIAL) ONE (22:32)
[2021-10-15] MEDS ORDERED: Dexamethasone 20 MG/5 ML VIAL ONE (22:32)
[2021-10-15] MEDS ORDERED: Phenylephrine 10 MG/ML VIAL ONE (22:32)
[2021-10-15] MEDS ORDERED: Lidocaine 1% PF 5 ML VIAL ONE (22:32)
[2021-10-15] MEDS ORDERED: Succinylcholine 200 MG/10 ml SYRINGE FS ONE (22:32)
[2021-10-15] MEDS ORDERED: PROPOFOL 200 MG/20 ML VIAL ONE (22:32)
[2021-10-15] MEDS ORDERED: niCARdipine 25 MG in Sodium Chloride 0.9% 250 ML 250 ML IVPB PRN (23:08)
[2021-10-15] MEDS ORDERED: Communication Order-Pharmacy FS SCH (23:08)
[2021-10-15] MEDS ORDERED: hydrALAZINE 20 MG/ML VIAL SLOW IVP PRN (23:08)
[2021-10-15] MEDS ORDERED: Acetaminophen 325 MG TAB PO PRN (23:08)
[2021-10-15] MEDS ORDERED: Labetalol HCl 100 MG/20 ML VIAL ONE (23:41)
[2021-10-15] MEDS: Labetalol HCl 100 MG/20 ML VIAL SLOW IVP PRN (23:45)
[2021-10-15 23:56] LABS: SARS-CoV-2 NAA Rapid Test Not Detected (NotDetected)
[2021-10-16 00:23] VITALS: BMI 34.5
[2021-10-16] MEDS ORDERED: HumaLOG 300 UNITS/3 ML VIAL SC PRN (00:25)
[2021-10-16] MEDS ORDERED: Dextrose 5% in Water 1,000 ML IV PRN (00:25)
[2021-10-16] MEDS ORDERED: Dextrose 50% Abboject 50 ML SYRINGE SLOW IVP PRN (00:25)
[2021-10-16 00:42] LABS: #Lymphocytes 0.9 thou/uL (1.20-3.40); #Monocytes 0.2 thou/uL (0.11-0.59); #Neutrophils 12.6 thou/uL (1.40-6.50); %Basophils 0.3 % (0.0-1.0); %Eosinophils 0.1 % (0.0-10.0); %Lymphocytes 6.6 % (21.0-51.0); %Monocytes 1.8 % (0.0-10.0); %Neutrophils 91.2 % (42.0-75.0); Hemoglobin 14.2 g/dL (12.0-16.0); Mean Corpuscular HGB CONC 34.1 g/dL (32.0-36.0); Mean Corpuscular Hemoglobin 30.6 pg (27.0-31.0); Mean Corpuscular Volume 89.9 fL (78.0-98.0); Mean Platelet Volume 7.5 fL (7.4-10.4); Platelet Count 209 thou/uL (130-400); RBC Distribution Width 13.5 % (11.5-14.5); Red Blood Cell (RBC) Count 4.65 mill/uL (4.20-5.40); White Blood Cell (WBC) Count 13.8 thou/uL (4.8-10.8)
[2021-10-16 01:01] LABS: Anion Gap 16 mmol/L (10-20); BUN (Urea Nitrogen) 19 mg/dL (9.8-20.1); Calc. Creatinine Clearance 112 mL/min (70-130); Calcium 8.5 mg/dL (7.8-10.44); Carbon Dioxide 21 mmol/L (23-31); Chloride 104 mmol/L (98-107); Glucose 266 mg/dL (80-115); Sodium 137 mmol/L (136-145)
[2021-10-16] MEDS: Labetalol HCl 100 MG/20 ML VIAL SLOW IVP PRN ×2 (02:08→04:05)
[2021-10-16 02:09] VITALS: BP 192/92
[2021-10-16] MEDS: Ondansetron PF 4 MG/2 ML Vial IVP PRN ×2 (04:05→15:31)
[2021-10-16 05:01] LABS: Cardiac Risk 3.1 (Less than 4.5)
[2021-10-16] MEDS: HumaLOG 300 UNITS/3 ML VIAL SC PRN ×4 (05:30→16:39)
[2021-10-16] MEDS ORDERED: Ondansetron PF 4 MG/2 ML Vial IVP PRN (05:52)
[2021-10-16] MEDS: Sodium Chloride 0.9% 1,000 ML IV SCH ×2 (06:09→16:39)
[2021-10-16] MEDS: niCARdipine 50 MG in Sodium Chloride 0.9% 250 ML 230 ML IVPB PRN ×3 (08:24→19:11)
[2021-10-16] MEDS ORDERED: Morphine 4 MG/ML VIAL ONE (15:29)
[2021-10-16] MEDS ORDERED: Morphine 4 MG/ML VIAL SLOW IVP PRN (15:56)
[2021-10-16] MEDS ORDERED: Atorvastatin Calcium 40 MG TAB PO SCH (21:00)
[2021-10-16 21:12] VITALS: TEMP 99.6
[2021-10-17] MEDS ORDERED: Aspirin 325 mg Enteric Coated Tablet PO SCH (09:00)
[2021-10-17] MEDS ORDERED: Aspirin 300 MG Suppository PR SCH (09:00)
[2021-10-17] MEDS ORDERED: Aspirin 81 mg Enteric Coated Tablet PO SCH (09:00)
[2021-10-19] MEDS ORDERED: FLU VACC QS2021-22(6MOS UP)/PF 60 MCG/0.5 ML SYRINGE IM ONE (09:00)
== END 2021-10-16 21:33 | disposition hospice, inpatient (51) | DRG 23 ==
LOC: ERS 20:52 → SDC/OP 22:24 → CCU 22:48
PROVIDERS: ADMIT Neurological Surgery; ATTEND Neurological Surgery
PROC: 3E03317 Introduction of Other Thrombolytic into Peripheral Vein, Percutaneous Approach (ICD-10-PCS; 2021-10-15)
PROC: 03CG3ZZ Extirpation of Matter from Intracranial Artery, Percutaneous Approach (ICD-10-PCS; principal; 2021-10-16)
DX: I63.511 Cerebral infarction due to unspecified occlusion or stenosis of right middle cerebral artery (principal); I61.9 Nontraumatic intracerebral hemorrhage, unspecified; G93.5 Compression of brain; G81.91 Hemiplegia, unspecified affecting right dominant side; Z51.5 Encounter for palliative care; Z66 Do not resuscitate; E11.9 Type 2 diabetes mellitus without complications; Z20.822 Contact with and (suspected) exposure to COVID-19; E66.9 Obesity, unspecified; E78.5 Hyperlipidemia, unspecified; I10 Essential (primary) hypertension; Z88.2 Allergy status to sulfonamides; Z88.8 Allergy status to other drugs, medicaments and biological substances; Z90.49 Acquired absence of other specified parts of digestive tract; Z98.890 Other specified postprocedural states; Z68.34 Body mass index [BMI] 34.0-34.9, adult
CPT/HCPCS: 0240U; 36416; 70450; 70496; 70498; 80053; 80061; 82550; 84484; 85025; 85610; 85730; C1887; J1100; J1644; J1815; J2270; J2370; J2405; J2704; J2997; J3010; J7050

== ENCOUNTER 2021-10-16 21:46 | Inpatient (IN) | payer OTHER ==
[2021-10-16] MEDS ORDERED: Ondansetron PF 4 MG/2 ML Vial IVP PRN (22:48)
[2021-10-16] MEDS ORDERED: Bisacodyl 10 MG SUPP PR PRN (22:48)
[2021-10-16] MEDS ORDERED: Scopolamine 1.5 mg/72 hour Patch TOP PRN (22:48)
[2021-10-16] MEDS ORDERED: Haloperidol Lactate 5 MG/ML VIAL SLOW IVP PRN (22:49)
[2021-10-16] MEDS ORDERED: diphenhydrAMINE 50 MG/ML VIAL IVP PRN (22:50)
[2021-10-16 22:53] VITALS: BMI 34.4
[2021-10-16] MEDS ORDERED: Acetaminophen 650 MG Suppository PR PRN (22:55)
[2021-10-17] MEDS: Lorazepam 2 MG/ML VIAL SLOW IVP PRN ×2 (01:47→04:33)
[2021-10-17] MEDS: Morphine 4 MG/ML VIAL SLOW IVP PRN ×4 (01:47→18:07)
[2021-10-17] MEDS: Morphine 4 MG/ML VIAL SLOW IVP SCH ×3 (05:56→20:28)
[2021-10-17] MEDS: Lorazepam 2 MG/ML VIAL SLOW IVP SCH ×4 (05:57→20:27)
[2021-10-17 19:44] VITALS: BP 129/58; TEMP 102.7
== END 2021-10-17 22:47 | disposition expired | DRG 951 ==
LOC: CCU 21:46 → MSONC 10-17 00:54
PROVIDERS: ADMIT Internal Medicine Nephrology; ATTEND Internal Medicine Nephrology
DX: Z51.5 Encounter for palliative care (principal); I63.9 Cerebral infarction, unspecified; G93.5 Compression of brain; Z66 Do not resuscitate; E78.5 Hyperlipidemia, unspecified; I10 Essential (primary) hypertension; E66.9 Obesity, unspecified; E11.9 Type 2 diabetes mellitus without complications; Z90.49 Acquired absence of other specified parts of digestive tract; Z98.890 Other specified postprocedural states; Z88.2 Allergy status to sulfonamides; Z88.8 Allergy status to other drugs, medicaments and biological substances; Z68.34 Body mass index [BMI] 34.0-34.9, adult
CPT/HCPCS: J2060; J2270